=== PATIENT | female | born 1940 | race Caucasian/White ===

== ENCOUNTER 2025-01-19 10:06 | Outpatient (AMB) | payer MEDICARE, SELFPAY ==
--- NOTE | 2025-01-19 10:09 | MHC.PC.OV ---
Vital Signs 01/19/25 10:14 Weight 232 lb 4 oz BP 138/62 Blood Pressure Location Rt brachial Position Sitting Respiration 16 Pulse 71 Pulse Source Pulse Oximeter Temp 97.6 F Temp Source Oral Pulse Oximetry (%) 96 Oxygen Delivery Method Room Air Intake Visit Reasons: establish care/oxygen Sales Assistants And Salespersons Required: No Accompanied by: Self / Same As Patient Allergies empagliflozin (From Jardiance) Allergy (Verified 01/23/25 10:09) sores Tobacco use date assessed: 01/19/25 Dental Screening Dental Screen Date: 01/19/25 Did you have a dental visit in the last 12 months?: No Did you have a dental problem in the last 6 months where you did not have access to dental care?: No Was dental information given to patient?: No HPI HPI Comments History of Present Illness Details History of Present Illness The patient is an 84-year-old female presenting to [facility] and manage her chronic conditions. Type 2 Diabetes Mellitus with complications: The patient has a long history of type 2 diabetes mellitus, complicated by peripheral neuropathy and osteomyelitis. Five years prior, the osteomyelitis resulted in the amputation of her right small toe. Despite adherence to her insulin regimen, the patient's glycemic control has been persistently poor, characterized by HbA1c values reaching 9.7% over recent years. Congestive Heart Failure with preserved ejection fraction: The patient has been managing congestive heart failure with a pacemaker implanted in 2020. Her condition manifests as dyspnea and weight gain, associated with diastolic dysfunction and significant pulmonary hypertension. She has experienced periodic hospitalizations. Sleep Apnea: The patient has a noted reluctance to adhere to her CPAP therapy, with persistent fatigue and non-restorative sleep attributed to the combination of sleep apnea and heart failure. Lymphedema: There is a known history of bilateral lower extremity lymphedema which has impaired the patient's wound healing, particularly following compression therapy. Osteomyelitis: Osteomyelitis of the right small toe necessitated amputation and ongoing wound care is indicated to manage healing. Pulmonary Hypertension: The patient experiences pulmonary hypertension, likely secondary to her existing heart failure. Tuberculosis: History of tuberculosis treatment included partial lung removal, and there are no ongoing symptoms. Surgical History: - Pacemaker implantation in 2020 - Right small toe amputation due to osteomyelitis - Vascular surgery with stenting in the lower leg - Partial right lung removal due to tuberculosis Medications: - Atenolol, 50 mg daily for heart condition - Insulin Lispro, sliding scale for blood glucose management - Insulin NPH, 5 units nightly for diabetes management - Losartan, 100 mg daily for hypertension - Warfarin, 5 mg daily for anticoagulation due to mechanical heart valve - Vitamin D supplementation, 1000 IU daily for deficiency Social History: - Relies on her daughter for transportation and daily living support - History of smoking, with duration not specified Family History: - No specific family history mentioned Past Medical History - Type 2 Diabetes Mellitus - Congestive Heart Failure - Sleep Apnea - Lymphedema - Osteomyelitis - Tuberculosis (history) - Sick Sinus Syndrome - Coronary Artery Disease - Pulmonary Hypertension - Atrial Fibrillation - Hyperlipidemia - Chronic Kidney Disease - Hypertension Health Maintenance [facility] Medical History (Updated 01/25/25 @ 08:33 by Akash Desir MD) Chronic kidney disease Elevated BP without diagnosis of hypertension Hypertension associated with chronic kidney disease due to type 2 diabetes mellitus Hyperlipidemia Atrial fibrillation Pulmonary hypertension Coronary artery disease Sick sinus syndrome History of tuberculosis Pacemaker Osteomyelitis Lymphedema Sleep apnea (HFpEF) heart failure with preserved ejection fraction Diabetes mellitus type 2 with complications Surgical History (Updated 01/25/25 @ 08:23 by Akash eDsir MD) History of lung surgery S/P foot surgery Family History (Updated 01/19/25 @ 10:30 by Adriano Mchugh MA) Father Stomach cancer Mother No problems noted. Social History (Updated 01/19/25 @ 10:12 by Adriano Mchugh MA) Housing: House Alcohol intake: current Alcohol intake frequency: does not drink Patient Tobacco Use Status: Never used Tobacco service: No Current occupational status: retired Cognitive needs: Yes Hearing needs: No Vision needs: Yes (reading glasses) Questionnaire PHQ-9 Over the last 2 weeks, how often have you been bothered by any of the following problems? 1. Little interest or pleasure in doing things: not at all 2. Feeling down, depressed, or hopeless: not at all 3. Trouble falling or staying asleep, or sleeping too much: not at all 4. Feeling tired or having little energy: not at all 5. Poor appetite or overeating: not at all 6. Feeling bad about yourself - or that you are a failure or have let yourself or your family down: not at all 7. Trouble concentrating on things, such as reading the newspaper or watching television: not at all 8. Moving or speaking so slowly that other people could have noticed. Or the opposite - being so fidgety or restless that you have been moving around a lot more than usual: not at all 9. Thoughts that you would be better off or of hurting yourself in some way: not at all Total score: 0 Source: Developed by Drs. Robert Romo, Vahid Jacome and colleagues, with an educational na from [employer]. Thrive Questionnaire I am a: Patient What is your living situation today?: I have a steady place to live Within the past 12 months, did the food you bought not last and you didn't have the money to get more?: Never true Within the past 12 months, did you worry whether your food would run out before you got money to buy more?: Never true Do you have trouble paying for medicines?: No Do you have trouble getting transportation to medical appointments?: No Do you have trouble paying your heating and electricity bill?: No Do you have trouble taking care of your child, family member or friend?: No Are you currently unemployed and looking for a job?: No Are you interested in more education?: No Please select the resources that you would like help with: Care for elder or disabled Currently or been in a relationship where the following occur: No concerns reported THRIVE Score: 0 AUDIT C Alcohol Use Questionnaire (AUDIT-C) 1. How often do you have a drink containing alcohol?: Never Total Score: 0 CHAD-7 AMB Questionnaire CHAD-7 Date CHAD - 7 assessed: 01/19/25 Feeling nervous, anxious, or on edge: 0 = Not at all Not being able to stop or control worryin = Not at all Worrying too much about different things: 0 = Not at all Trouble relaxin = Not at all Being so restless that it is hard to sit still: 0 = Not at all Becoming easily annoyed or irritable: 0 = Not at all Feeling afraid as if something awful might happen: 0 = Not at all Total CHAD-7 score (0-4 normal; 5-9 mild; 10-14 moderate; 15-21 severe): 0 Source: Developed by Drs. Robert Romo, Vahid Jacome and colleagues, with an educational na from [employer]. Review of Systems Narrative Review of Systems - Cardiovascular: Reports history of congestive heart failure, denies current chest pain or palpitations. - Respiratory: Reports past history of tuberculosis and partial lung removal, denies current dyspnea or cough. - Endocrine: Reports history of diabetes mellitus with recent toe amputation, denies hypoglycemic episodes. - Neuropsychiatric: Denies history of atrial fibrillation. 10-point ROS reviewed and negative except as noted in HPI Physical exam (Primary Care) Vital Signs: Last Vital Signs Temp 97.6 F 01/19/25 10:14 Pulse 71 01/19/25 10:14 Resp 16 01/19/25 10:14 BP 138/62 01/19/25 10:14 Pulse Ox 96 01/19/25 10:14 Oxygen Delivery Method Room Air 01/19/25 10:14 Tobacco/Smoking Status: Tobacco use Status Tobacco use date assessed 01/19/25 01/19/25 10:33 Patient Tobacco Use Status Never used Tobacco 01/19/25 10:33 PHQ-9: PHQ-9 Score PHQ-9: Total score 0 01/19/25 10:33 Currently or been in a relationship where the following occur: No concerns reported Narrative Physical Exam General: Elderly female, well-appearing, in no acute distress. Vital signs: Within normal limits. HEENT: Normocephalic, atraumatic. PERRLA, EOMI. Conjunctiva clear, sclera anicteric. Oropharynx clear, mucous membranes moist. TMs intact bilaterally. Neck: Supple, no lymphadenopathy, no thyromegaly, no JVD or carotid bruits. Cardiovascular: RRR, normal S1/S2, no murmurs, rubs, or gallops. Peripheral pulses 2+ and symmetric. No edema. Status post pacemaker implantation. Respiratory: Lungs clear to auscultation bilaterally, no wheezes, rales, or rhonchi. Normal effort. Severe pulmonary hypertension noted. Abdomen: Soft, non-tender, non-distended. Normoactive bowel sounds. No hepatosplenomegaly, no masses. MSK: Full range of motion, no joint swelling or deformity. Normal gait. Status post partial amputation of the right foot with ongoing wound care. Skin: Warm, dry, intact. No rashes, lesions, or pallor. Bruising noted due to warfarin use. Neuro: Alert and oriented x3. Cranial nerves II-XII intact. Strength 5/5 throughout. Sensation intact. Reflexes 2+ symmetric. Normal coordination and gait. Psych: Appropriate mood and affect. Normal judgment and insight. Coding Level of Care Code New Pt Level 4 (24950) Diagnoses Peripheral artery disease I73.9 Ulcer of right foot due to type 2 diabetes mellitus E11.621; L97.519 Diabetic ulcer of left foot E11.621; L97.529 Diabetes mellitus type 2 with complications E11.8 (HFpEF) heart failure with preserved ejection fraction I50.30 Sleep apnea G47.30 Lymphedema I89.0 Osteomyelitis M86.9 Pacemaker Z95.0 History of tuberculosis Z86.11 History of lung surgery Z98.890 Sick sinus syndrome I49.5 Coronary artery disease I25.10 Pulmonary hypertension I27.20 Atrial fibrillation I48.91 Hyperlipidemia E78.5 Hypertension associated with chronic kidney disease due to type 2 diabetes mellitus E11.22; I12.9 Elevated BP without diagnosis of hypertension R03.0 Assessment & Plan Assessment & Plan (1) Peripheral artery disease: Code(s): I73.9 - Peripheral vascular disease, unspecified Category: Medical (2) Ulcer of right foot due to type 2 diabetes mellitus: Code(s): E11.621 - Type 2 diabetes mellitus with foot ulcer; L97.519 - Non-pressure chronic ulcer of other part of right foot with unspecified severity Category: Medical (3) Diabetic ulcer of left foot: Code(s): E11.621 - Type 2 diabetes mellitus with foot ulcer; L97.529 - Non-pressure chronic ulcer of other part of left foot with unspecified severity Category: Medical (4) Diabetes mellitus type 2 with complications: Code(s): E11.8 - Type 2 diabetes mellitus with unspecified complications Category: Medical (5) (HFpEF) heart failure with preserved ejection fraction: Code(s): I50.30 - Unspecified diastolic (congestive) heart failure Category: Medical (6) Sleep apnea: Code(s): G47.30 - Sleep apnea, unspecified Category: Medical (7) Lymphedema: Code(s): I89.0 - Lymphedema, not elsewhere classified Category: Medical (8) Osteomyelitis: Code(s): M86.9 - Osteomyelitis, unspecified Category: Medical (9) Pacemaker: Code(s): Z95.0 - Presence of cardiac pacemaker Category: Medical (10) History of tuberculosis: Code(s): Z86.11 - Personal history of tuberculosis Category: Medical (11) History of lung surgery: Code(s): Z98.890 - Other specified postprocedural states Category: Surgical (12) Sick sinus syndrome: Code(s): I49.5 - Sick sinus syndrome Category: Medical (13) Coronary artery disease: Code(s): I25.10 - Atherosclerotic heart disease of [place] coronary artery without angina pectoris Category: Medical (14) Pulmonary hypertension: Code(s): I27.20 - Pulmonary hypertension, unspecified Category: Medical (15) Atrial fibrillation: Code(s): I48.91 - Unspecified atrial fibrillation Category: Medical (16) Hyperlipidemia: Code(s): E78.5 - Hyperlipidemia, unspecified Category: Medical (17) Hypertension associated with chronic kidney disease due to type 2 diabetes mellitus: Code(s): E11.22 - Type 2 diabetes mellitus with diabetic chronic kidney disease; I12.9 - Hypertensive chronic kidney disease with stage 1 through stage 4 chronic kidney disease, or unspecified chronic kidney disease Category: Medical (18) Elevated BP without diagnosis of hypertension: Code(s): R03.0 - Elevated blood-pressure reading, without diagnosis of hypertension Category: Medical Plan Consent Patient was informed and verbally consented to the use of an ambient scribe for clinic note documentation during this visit. Plan 1. Diabetes Mellitus - Continue current insulin regimen 2. Congestive Heart Failure - Continue with atenolol and warfarin -chads Vasc score of 7 we will switch over to DOAC , apixaban 2.5 b.i.d. - Referral to cardiology for evaluation 3. Sleep Apnea - Referral to sleep medicine for a sleep study and CPAP evaluation 4. Lymphedema - Continued use of compression therapy with skin monitoring 5. Osteomyelitis - Continue wound care, follow-up with podiatry 6. Tuberculosis (History Of) - No current treatment required, monitor respiratory status. 7. Pulmonary Hypertension - Monitor alongside heart failure management Discussion Notes During today's visit, I extensively discussed with the patient the management of her significant chronic conditions, focusing on diabetes control and heart failure care. We reviewed her adherence to her insulin regimen and acknowledged the complications such as osteomyelitis of the toe that led to amputation. I highlighted the importance of specialist referrals to optimize her heart failure management and explore potential medication adjustments, specifically the potential transition from warfarin to a DOAC. The patient was counseled on the potential benefits of revisiting her sleep apnea diagnosis with a new sleep study to improve compliance with CPAP therapy. Her consent was actively sought and obtained for these planned interventions, emphasizing their critical role in managing her overall chronic health conditions. Patient Instructions - Continue taking all prescribed medications as directed. - Attend upcoming appointments with specialists in cardiology, vascular surgery nephrology wound care and sleep medicine. - Monitor blood glucose levels regularly using Dexcom. - Follow up with podiatry for wound care management. Medical Decision Making The patient's medical complexity was acknowledged through her multiple chronic conditions. Her glycemic control issues, coupled with the sequelae of diabetes including amputation due to osteomyelitis, necessitated referrals for more aggressive management. Given her preserved ejection fraction heart failure with significant pulmonary hypertension, maintaining her heart failure regimen and exploring alternatives for anticoagulation was crucial. I emphasized a team-based approach linking cardiology, and sleep medicine specialists, facilitating a comprehensive management strategy tailored to improve her clinical outcomes. Her cardiovascular history justified ongoing anticoagulation therapy, with potential benefits from transitioning to a DOAC to simplify her regimen and reduce adverse effects associated with warfarin. Additionally, the sleep medicine referral was essential to reassess her sleep apnea management, as this greatly impacts her cardiac condition. Ensuring patient understanding and buy-in was imperative, as it forms the foundation of effective follow-through and management adjustment. Total time spent caring for the patient today was 45 minutes. This includes time spent before the visit reviewing the chart, time spent documenting, and time spent reviewing laboratory results, diagnostic imaging, medications, performing a medically necessary evaluation, counseling on diagnoses, care coordination.. Medications: New apixaban 2.5 mg PO BID 180 tabs 0RF
[2025-01-19 10:14] VITALS: BP 138/62; PULSE 71; RESP 16; TEMP 36.4; O2SAT 96
== END 2025-01-19 11:14 | disposition home or self-care (01) ==
LOC: HO.HMCFMS 10:07
PROVIDERS: PCP Student in an Organized Health Care Education/Training Program; Visit Provider Student in an Organized Health Care Education/Training Program
DX: I73.9 Peripheral vascular disease, unspecified (principal); E11.621 Type 2 diabetes mellitus with foot ulcer; L97.519 Non-pressure chronic ulcer of other part of right foot with unspecified severity; L97.529 Non-pressure chronic ulcer of other part of left foot with unspecified severity; E11.8 Type 2 diabetes mellitus with unspecified complications; I50.30 Unspecified diastolic (congestive) heart failure; G47.30 Sleep apnea, unspecified; I89.0 Lymphedema, not elsewhere classified; M86.9 Osteomyelitis, unspecified; Z95.0 Presence of cardiac pacemaker; Z86.11 Personal history of tuberculosis; Z98.890 Other specified postprocedural states; I49.5 Sick sinus syndrome; I25.10 Atherosclerotic heart disease of native coronary artery without angina pectoris; I27.20 Pulmonary hypertension, unspecified; I48.91 Unspecified atrial fibrillation; E78.5 Hyperlipidemia, unspecified; E11.22 Type 2 diabetes mellitus with diabetic chronic kidney disease; I12.9 Hypertensive chronic kidney disease with stage 1 through stage 4 chronic kidney disease, or unspecified chronic kidney disease; R03.0 Elevated blood-pressure reading, without diagnosis of hypertension

== ENCOUNTER → 2025-01-19 10:06 | Outpatient (BNVA) | payer MEDICARE, SELFPAY | PROVIDERS: Visit Provider Student in an Organized Health Care Education/Training Program | DX: Z76.89 Persons encountering health services in other specified circumstances (principal); I73.9 Peripheral vascular disease, unspecified; E11.621 Type 2 diabetes mellitus with foot ulcer; L97.519 Non-pressure chronic ulcer of other part of right foot with unspecified severity; L97.529 Non-pressure chronic ulcer of other part of left foot with unspecified severity; E11.22 Type 2 diabetes mellitus with diabetic chronic kidney disease; I13.0 Hypertensive heart and chronic kidney disease with heart failure and stage 1 through stage 4 chronic kidney disease, or unspecified chronic kidney disease; I50.30 Unspecified diastolic (congestive) heart failure; N18.9 Chronic kidney disease, unspecified; E78.5 Hyperlipidemia, unspecified; I89.0 Lymphedema, not elsewhere classified; M86.9 Osteomyelitis, unspecified; I27.20 Pulmonary hypertension, unspecified; I25.10 Atherosclerotic heart disease of native coronary artery without angina pectoris; I48.91 Unspecified atrial fibrillation; Z95.2 Presence of prosthetic heart valve; Z79.01 Long term (current) use of anticoagulants; Z79.4 Long term (current) use of insulin; Z79.899 Other long term (current) drug therapy; Z86.11 Personal history of tuberculosis; Z95.0 Presence of cardiac pacemaker; Z89.421 Acquired absence of other right toe(s); Z13.30 Encounter for screening examination for mental health and behavioral disorders, unspecified; Z13.39 Encounter for screening examination for other mental health and behavioral disorders | CPT/HCPCS: 96127; 99202 ==

== ENCOUNTER 2025-01-23 09:57 | Outpatient (AMB) | payer MEDICARE, SELFPAY ==
--- OUTSIDE RECORDS SUMMARY | 2020-06-27 10:00 | XMS_ITS | Continuity of Care Document ---
Author Organization [facility] Address [address] [place] [address] Phone Care Team Providers Care Energy Infrastructure Engineer Name Role Phone Olga Srivasatva Unavailable Unavailable Allergies, Adverse Reactions, Alerts Substance Reaction Status Criticality METHYLPREDNISOLONE ACETATE HivesHivesShortness Of [place] th Active No Information Medications Medication Instructions Dosage Effective Dates (start - stop) Status Comments tramadol 50 mg tablet take 0.5-1 tablet by oral route every 6 hours as needed. acute pain exemption - Active Serafina 5 mg-325 mg tablet take 1 tablet [...] Copied on Encounter Office/outpa tient visit,est, mod [facility], [address], [place], [place], [address], [place] tel:[phone] [facility] 101 lumbar spine pain (chief complaint) Neurogenic claudicationS acroiliac joint dysfunctionLu mbar disc disease with radiculopathy Apr-0 - 1 Horace Espinoza. [address], [place], [place], [address] , [place]. [phone] Referring Provider: Olga SANCHEZ, [address], [place], [address] . tel:[phone] [facility], [address], [place], [place], [address], [place] tel:[phone] [facility] 204 No Information May- 1 Eduard Wen. [address], [place], [place], [address] , [place]. tel: [phone] [facility], [address], [place], [place], [address], [place] tel:[phone] [place] [facility] [address] Neurogenic claudication May- 1 Prabhjot Hastings. [address], [place], [place], [address] , [place]. [phone] Referring Provider: Venkata Rick MD, [address], [place], [address] . tel:[phone] Office/outpa tient visit,est, mod [facility], [address], [place], [place], [address], [place] tel:[phone] [place] [address] lumbar spine pain (chief complaint) Neurogenic claudicationS acroiliac joint dysfunction 1 Prabhjot Hastings. [address], [place], [place], [address] , [place]. tel:[phone] Referring Provider: Venkata Rick MD, [address], [place], [address] . tel:[phone] [facility], [address], [place], [place], [address], [place] tel:[phone] [facility] [address] Lumbar disc disease with radiculopathy 0- 0 Prabhjot Hastings. [address], [place], [place], [address] , [place]. tel:[phone] Referring Provider: Venkata Rick MD, [address], [place], [address] . tel:[phone] [facility], [address], [place], [place], [address], [place] tel:[phone] [place] [address] Lumbar disc disease with radiculopathy 0 Kenny Avalos. [address], [place], [place], [address] , [place]. tel:[phone] Referring Provider: Venkata Rick MD, [address], [place], [address] . tel:[phone] Office/outpa tient visit,est, mod [facility], [address], [place], [place], [address], [place] tel:[phone] [facility] [address] lumbar spine pain (chief complaint) Body mass index (BMI) 33.0-33.9, adultNeurogen ic claudicationS acroiliac joint dysfunction 0 0 Prabhjot Hastings. [address], [place], [place], [address] , [place]. tel:[phone] Referring Provider: Venkata Rick MD, [address], [place], [address] . tel:[phone] [facility], [address], [place], [place], [address], [place] tel:[phone] [place] [address] Spondylosis of lumbar region without myelopathy or radiculopathy 0 Prabhjot Hastings. [address], [place], [place], [address] , [place]. tel:[phone] Referring Provider: Venkata Rick MD, [address], [place], [address] . tel:[phone] [facility], [address], [place], [place], [address], [place] tel:[phone] [place] [facility] [address] Spondylosis of lumbar region without myelopathy or radiculopathy 0 Prabhjot Hastings. [address], [place], [place], [address] , [place]. tel:[phone] Referring Provider: Venkata Rick MD, [address], [place], [address] . tel:[phone] [facility], [address], [place], [place], [address], [place] tel:[phone] [facility] [address] Spondylosis of lumbar region without myelopathy or radiculopathy 0 Prabhjot Hastings. [address], [place], [place], [address] , [place]. tel: [phone] Referring Provider: Venkata Rick MD, [address], [place], [address] . tel:[phone] [facility], [address], [place], [place], [address], [place] tel:[phone] [facility] [address] Spondylosis of lumbar region without myelopathy or radiculopathy 9 Prabhjot Hastings. [address], [place], [address] , [place]. tel: [phone] Referring Provider: Venkata Rick MD, [address], [place], [address] . tel:[phone] Office/outpa tient visit,est, mod [facility], [address], [place], [place], [address], [place] tel:[phone] [facility] [address] lumbar spine pain (chief complaint) Body mass index (BMI) 33.0-33.9, adultSpondylo sis of lumbar region without myelopathy or radiculopathy Neurogenic claudication 9 Prabhjot Hastings. [address], [place], [place], [address] , [place]. tel:[phone] Referring Provider: Venkata Rick MD, [address], [place], [address] . tel:[phone] [facility], [address], [place], [place], [address], [place] tel:[phone] [place] [address] Spondylosis of lumbar region without myelopathy or radiculopathy 9 Prabhjot Hastings. [address], [place], [place], [address] , [place]. [phone] Referring Provider: Venkata Rick MD, [address], [place], [address] . tel:[phone] [facility], [address], [place], [place], [address], [place] tel:[phone] [place] [address] Spondylosis of lumbar region without myelopathy or radiculopathy 9 Prabhjot Hastings. [address], [place], [place], [address] , [place]. tel:[phone] Referring Provider: Venkata Rick MD, [address], [place], [address] . tel:[phone] Office/outpa tient visit,est, mod [facility], [address], [place], [place], [address], [place] tel:[phone] [facility] [address] lumbar spine pain (chief complaint) Body mass index (BMI) 33.0-33.9, adultSpondylo sis of lumbar region without myelopathy or radiculopathy Neurogenic claudication 9 Prabhjot Hastings. [address], [place], [place], [address] , [place]. tel:[phone] Referring Provider: Venkata Rick MD, [address], [place], [address] . tel:[phone] [facility], [address], [place], [place], [address], [place] tel:[phone] [place] [address] Spondylosis of lumbar region without myelopathy or radiculopathy 9 Prabhjot Hastings. [address], [place], [place], [address] , [place]. tel:[phone] Referring Provider: Venkata Rick MD, [address], [place], [address] . tel:[phone] Office/outpa tient visit,[facility], [address], [place], [place], [address], [place] tel:[phone] [facility] 204 lumbar spine pain (chief complaint) Body mass index (BMI) 33.0-33.9, adultSpondylo sis of lumbar region without myelopathy or radiculopathy Neurogenic claudication 9 Prabhjot Hastings. [address], [place], [place], [address] , [place]. tel:[phone] Referring Provider: Chuy Ogden MD H, [address], [place], [address] . tel:[phone] Office/outpa tient visit,[facility], [address], [place], [place], [address], [place] tel:[phone] [facility] 201 lumbar spine (chief complaint) Body mass index (BMI) 33.0-33.9, adultLumbar painLumbar disc disease with radiculopathy 9 Alin Vera . [address], [place], [place], [address] , [place]. tel:[phone] Referring Provider: Chuy Ogden MD H, [address], [place], [address] . tel:[phone] Office/outpa tient visit,[facility], [address], [place], [place], [address], [place] tel:[phone] [facility] 201 right knee pain (chief complaint) Closed nondisplaced fracture of right patella, unspecified fracture morphology, initial encounter 8 Alin Vera . [address], [place], [place], [address] , [place]. tel: [phone] Referring Provider: Chuy Ogden MD H, [address], [place], [address] . tel:[phone] Office/outpa tient visit,est, [facility], [address], [place], [place], [address], [place] tel:[phone] [facility] knee (chief complaint) Contusion of right knee, subsequent encounter 6 Alin Vera . [address], [place], [place], [address] , [place]. tel: [phone] Referring Provider: Chuy Granados, [address], [place], [address] . tel:[phone] [facility], [address], [place], [place], [address], [place] tel:[phone] [facility] hip (chief complaint) hip (chief complaint) Contusion of right knee, subsequent encounter 6 Lo Causey. [address], [place], [place], [address] , [place]. tel: [phone] Referring Provider: Chuy Ogden MD H, [address], [place], [address] . tel:[phone] Office/outpa tient visit,est, [facility], [address], [place], [place], [address], [place] tel:[phone] [facility] right knee pain (chief complaint) right ankle pain (chief complaint) Contusion of right knee, subsequent encounterSpra in of right ankle, unspecified ligament, subsequent encounter 5 Alin Vera . [address], [place], [place], [address] , [place]. tel: [phone] Referring Provider: Chuy Granados, [address], [place], [address] . tel:[phone] Office/outpa tient visit,[facility], [facility], [address], [place], [place], [address], [place] tel:[phone] [facility] left hand fracture (chief complaint) Nondisplaced fracture of proximal phalanx of left little finger with routine healing, subsequent encounter 5 Nino JIMENEZ Check. [address], [place], [place], [address] , [place]. tel: [phone] Referring Provider: Jerry Clark, [address], [place], [address] . tel:[phone] Office/outpa tient visit,[facility], [facility], [address], [place], [place], [address], [place] tel:[phone] [facility] right foot pain (chief complaint) Sprain of right ankle, unspecified ligament, subsequent encounter 5 Alin Vera . [address], [place], [place], [address] , [place]. tel: [phone] Referring Provider: Chuy Ogden MD H, [address], [place], [address] . tel:[phone] Office/outpa tient visit,[facility], [facility], [address], [place], [place], [address], [place] tel:[phone] [facility] left hand small finger fracture (chief complaint) Finger pain, leftClosed displaced fracture of proximal phalanx of right little finger, initial encounter 5 Nino JIMENEZ Check. [address], [place], [place], [address] , [place]. tel: [phone] Referring Provider: Chuy Granados, [address], [place], [address] . tel:[phone] Office/outpa tient visit,est, [facility], [address], [place], [place], [address], [place] tel:[phone] [facility] right knee pain (chief complaint) right ankle pain (chief complaint) knee (chief complaint) Right knee painRight ankle painContusion of right knee, subsequent encounter 5 Alin Vera . [address], [place], [place], [address] , [place]. [phone] Referring Provider: Chuy Granados, [address], [place], [address] . tel:[phone] [facility], [address], [place], [place], [address], [place] tel:[phone] [facility] 400 Swelling of right lower extremity 5 Alin Vera . [address], [place], [place], [address] , [place]. [phone] Referring Provider: Minerva Clark, [address], [place], [address] . tel:[phone] Office/outpa tient visit,[facility], [facility], [address], [place], [place], [address], [place] tel:[phone] [facility] 400 right knee pain (chief complaint) left hand swelling (chief complaint) Right knee painLeft hand painPrimary osteoarthriti s of right kneeClosed nondisplaced fracture of right patella, unspecified fracture morphology, initial encounterFrac ture of proximal phalanx of digit of left hand 5 Lashonda Palma. [address], [place], [place], [address] , [place]. [phone] Referring Provider: Minerva Clark, [address], [place], [address] . tel:[phone] [facility], [address], [place], [place], [address], [place] tel:[phone] [facility] 400 right knee pain (chief complaint) Primary osteoarthriti s of right knee Dec- 5 Alin Vera . [address], [place], [place], [address] , [place]. tel:[phone] Referring Provider: Chuy Ogden MD H, [address], [place], [address] . tel:[phone] [facility], [address], [place], [place], [address], [place] tel:[phone] [place] [address] right knee pain (chief complaint) Primary osteoarthriti s of right knee 5 Alin Vera . [address], [place], [place], [address] , [place]. tel:[phone] Referring Provider: Chuy Ogden MD H, [address], [place], [address] . tel:[phone] [facility], [address], [place], [place], [address], [place] tel:[phone] [facility] 400 right knee pain (chief complaint) Primary osteoarthriti s of right knee 5 Alin Vera . [address], [place], [place], [address] , [place]. tel:[phone] Referring Provider: Chuy Ogden MD H, [address], [place], [address] . tel:[phone] Office/outpa tient visit,est, mod [facility], [address], [place], [place], [address], [place] tel:[phone] [facility] right knee pain (chief complaint) Degenerative joint disease of knee 5 Alin Vera . [address], [place], [place], [address] , [place]. tel: [phone] Referring Provider: Chuy Ogden MD H, [address], [place], [address] . tel:[phone] Office/outpa tient visit,new, [facility], [address], [place], [place], [address], [place] tel:[phone] [facility] right knee pain (chief complaint) No Information 5 Alin Vera . [address], [place], [place], [address] , [place]. tel: [phone] Referring Provider: Chuy Ogden MD H, [address], [place], [address] . tel:[phone] [facility], [address], [place], [place], [address], [place] tel:[phone] [place] [address] No Information 5 Alin Vera . [address], [place], [place], [address] , . tel: [phone] Family History Family Member Type Diagnosis Age At Onset Father Problem (finding) Mother Problem (finding) Stomach Sister Problem (finding) malignant neop lasm of breast in first degree relative Mother Problem (finding) Payers Payer name Insurance type Covered constitution party ID Authoriza tion(s) MEDICARE MB [id number] AARP SUPPLEMENT CI [id number] Social History Type Description Quantity Date Captured [...] pertinent negatives. lumbar spine pain Ana M nIteriano is a 79 year old female. She [...] pain after activity. knee hip hip right knee pain Ms Interiano is a [...] symptoms are relieved by rest and elevation. right ankle pain Ms Interiano is a [...] activity. She denies having any associated symptoms. left hand fracture Ms Interiano is a [...] mobility, difficulty initiating sleep and nocturnal awakening. right ankle pain Ms Interiano is a [...] after activity and swelling. right knee pain Ana M Mazzocchi i s a 74 year old female. [...] after activity, pain while sitting and tenderness. knee Ms Interiano is a 74 year old female who complains of. left hand swelling Ms Interiano is a [...] include tenderness and pain. right knee pain Ms Interiano is [...] difficulty going to sleep and nighttime awakening. right knee pain Ana M Interiano i [...] for the treatment of pain such as tgnd-llg-fhnevsb medications, acupuncture, cognitive and physical therapy. The risk of taking prescribed opioid medications were discussed including but not limited to addiction, injury, overdose, and . The patient has been provided the approved [facility] educational pamphlet non-opioid alternatives if [...] for the treatment of pain such as eess-yme-hyfbosh medications, acupuncture, cognitive and physical therapy. The risk of taking prescribed opioid medications were discussed including but not limited to addiction, injury, overdose, and . The patient has been provided the approved [facility] educational pamphlet non-opioid alternatives if [...] for the treatment of pain such as zkuy-cdv-kxnnges medications, acupuncture, cognitive and physical therapy. The risk of taking prescribed opioid medications were discussed including but not limited to addiction, injury, overdose, and . The patient has been provided the approved [facility] educational pamphlet non-opioid alternatives if [...] for the treatment of pain such as tija-nej-rjcswso medications, acupuncture, cognitive and physical therapy. The risk of taking prescribed opioid medications were discussed including but not limited to addiction, injury, overdose, and . The patient has been provided the approved [facility] educational pamphlet non-opioid alternatives if [...] Related to Lumbar disc disease with radiculopathy Discussed risks and benefits of treatment plan Related to Lumbar pain Dietary needs education Related to Body mass index (BMI) 33.0-33.9, adult we discussed her exa m findings and [...] right ankle, unspecified ligament, subsequent encounter Recommend multimedia designer use and the splint was adjusted to [...] the office by one of the physicians care management assistant and placed in the immobilizer. 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 Has tried conservative measures rest, OTC NSAIDs [...]
--- NOTE | 2025-01-23 10:06 | MHC.OFFVIS ---
Vital Signs 01/23/25 10:08 Height 5 ft 6 in Weight 230 lb BMI 37.1 Intake Visit Reasons: RT baby toe open wound/recent amputation Intake Note: sourav is an 84 year old women who presents today as a new patient for an evaluation of her right pinky toe open wound/amputation. patient reports she was seen by a previous datawarehouse developer in [place] where he performed the amputation of her toe and left 3 stitches in. the amputation occured about three weeks ago. Allergies empagliflozin (From Jardiance) Allergy (Verified 01/23/25 10:09) sores HPI HPI RT baby toe open wound/recent amputation: Details: 84-year-old female with past medical history of diabetes mellitus type 2, peripheral artery disease status post angioplasty right lower extremity, on warfarin, presents for transfer of podiatric care as well as right diabetic foot ulcer management. The patient states that she moved from [place] within the past week, after a right 5th toe amputation approximately 3 weeks ago. She stayed in the hospital for approximately 1 week and then was in a subacute rehab facility for almost 2 weeks. She was given an oral antibiotic after discharge, which she has now completed. She states she has had the right foot ulcer chronically for several years which eventually had become acutely infected and required amputation. Today, the patient denies any pain to her lower extremities. She does endorse numbness her feet. She denies nausea vomiting fever chills shortness of breath or chest pain. She is unsure of her last A1c, however reports it to be typically under 10%. [facility] Surgical History (Updated 01/19/25 @ 11:12 by Akash Desir MD) S/P foot surgery Family History (Updated 01/19/25 @ 10:30 by Adriano Mchugh MA) Father Stomach cancer Mother No problems noted. Social History (Updated 01/19/25 @ 10:12 by Adriano Mchugh MA) Housing: House Alcohol intake: current Alcohol intake frequency: does not drink Patient Tobacco Use Status: Never used Tobacco service: No Current occupational status: retired Cognitive needs: Yes Hearing needs: No Vision needs: Yes (reading glasses) Review of Systems Const All systems reviewed & are unremarkable except as noted in HPI and below Physical Exam Vital Signs: BMI result Body Mass Index 37.1 Extrem Other: *Bilateral Lower Extremity Focused Diabetic Foot Exam Vascular: DP/PT 1/4 right foot, CFT<3s to digits, TG warm to cool, no pedal edema, pedal hair absent Derm: Status post right foot partial 5th ray amputation with 3 cm x 1 cm granular wound along the central aspect of the 5th metatarsal incision. No drainage erythema or clinical signs of infection. No deep probing or exposed tendon/bone. Nails: Elongated, thickened, dystrophic, discolored toenails x 10 with multiple calluses Discolored bilateral lower extremities with hemosiderin deposit. Dry scaling bilateral feet. Multiple calluses over and in between digits. Neuro: Protective sensation grossly diminished to bilateral lower extremities Msk: Status post right foot partial 5th ray amputation. No pain on palpation. Footwear Assessment: Shoes inspected; appropriate fit, no excessive wear, or foreign objects noted. Assessment & Plan Assessment & Plan (1) Ulcer of right foot due to type 2 diabetes mellitus: Code(s): E11.621 - Type 2 diabetes mellitus with foot ulcer; L97.519 - Non-pressure chronic ulcer of other part of right foot with unspecified severity Category: Medical Plan: As per patient, she had negative margins for osteomyelitis upon amputation. She also completed her postoperative antibiotic course. At this time there are no clinical signs of infection, there will be no further workup for her 5th digit osteomyelitis which underwent surgical resection. Right foot sutures were removed. The wound was dressed using antibiotic cream, 4 x 4 gauze, Britni, and a noncompressive Jd bandage. Visiting nurse instructions were given to perform daily dressing changes using mupirocin ointment and 4 x 4 gauze and Britni secured with tape. Rx mupirocin ointment Follow up in 2 weeks. We will plan to debride nails after her wound is healed. Patient was instructed to present earlier if she has any new worsening signs of infection to her feet. (2) Peripheral artery disease: Code(s): I73.9 - Peripheral vascular disease, unspecified Category: Medical Plan: Patient states she had a angioplasty to right lower extremity. She is not sure if she had any stents placed or the extent of her procedure. She was recommended by her previous vascular surgeon to find a new vascular surgeon here in [place] once she moves back. She is referred to Dr. Lux vascular surgery. Orders: Referrals Vascular Surgery Referral I73.9 - Peripheral vascular disease, unspecified Medications: New [Wound care instructions] Right foot wound care instructions: 1. Remove dressings. Cleansed with wound cleanser or saline. 2. Applied mupirocin ointment 3. Apply 4 x 4 gauze and Britni, secure with tape. No compression. 1 ea 0RF diabetic foot ulcer E11.621 - Type 2 diabetes mellitus with foot ulcer, L97.519 - Non-pressure chronic ulcer of other part of right foot with unspecified severity mupirocin 2% ([place]) Apply to right foot wound daily. 1 appl topical DAILY 15 grams 3RF diabetic foot ulcer E11.621 - Type 2 diabetes mellitus with foot ulcer, L97.519 - Non-pressure chronic ulcer of other part of right foot with unspecified severity Coding Level of Care Code New Pt Level 4 (80122) Diagnoses Ulcer of right foot due to type 2 diabetes mellitus E11.621; L97.519 Peripheral artery disease I73.9 Time Spent (min) 45
[2025-01-23 10:08] VITALS: BMI 37.1
== END 2025-01-23 10:43 | disposition home or self-care (01) ==
LOC: HO.HPODS 09:59
PROVIDERS: PCP Student in an Organized Health Care Education/Training Program; Visit Provider Student in an Organized Health Care Education/Training Program
DX: E11.621 Type 2 diabetes mellitus with foot ulcer (principal); L97.519 Non-pressure chronic ulcer of other part of right foot with unspecified severity; I73.9 Peripheral vascular disease, unspecified
CPT/HCPCS: 99204

== ENCOUNTER → 2025-01-23 09:57 | Outpatient (BNVA) | payer MEDICARE, SELFPAY | PROVIDERS: PCP Student in an Organized Health Care Education/Training Program; Visit Provider Student in an Organized Health Care Education/Training Program | DX: E11.621 Type 2 diabetes mellitus with foot ulcer (principal); L97.519 Non-pressure chronic ulcer of other part of right foot with unspecified severity; E11.51 Type 2 diabetes mellitus with diabetic peripheral angiopathy without gangrene; Z89.421 Acquired absence of other right toe(s) | CPT/HCPCS: 99202 ==

== ENCOUNTER 2025-02-02 11:04 | Outpatient (REF) | payer MEDICARE, SELFPAY ==
[2025-02-02 17:53] LABS: MANUAL DIFF FLAG NO
[2025-02-02 18:22] LABS: Appearance Urine Clear; Glucose Urine UA Negative (Negative); PH 5.5 (5.0-9.0); Specific Gravity - Urine 1.010 (1.005-1.025); UMIC TRIGGER UACC YES
[2025-02-02 18:28] LABS: Alanine Aminotransferase 35 U/L (0-31); Albumin Level 4.1 g/dL (3.5-5.0); Alkaline Phosphatase 143 U/L (39-117); Anion Gap 18 (12-20); Aspartate Amino Transferase 41 U/L (5-31); Blood Urea Nitrogen 46 mg/dL (9-16); Calcium 9.8 mg/dL (8.4-10.2); Carbon Dioxide 24 mmol/L (22-29); Chloride 104 mmol/L (96-108); Cholesterol 142 mg/dL (<200); Estimated Glomerular Filt Rate 32; HDL Cholesterol 52 mg/dL (>40); Magnesium 2.2 mg/dL (1.6-2.6); Potassium 4.5 mmol/L (3.3-5.1); Sodium 141 mmol/L (135-145); Total Protein 7.5 g/dL (6.5-8.0); Triglycerides 102 mg/dL (<150)
[2025-02-02 18:29] LABS: UACC Culture Trigger YES
[2025-02-02 18:33] LABS: Hemoglobin A1C 161.4481 umol/L
[2025-02-02 18:50] LABS: Folate 12.3 ng/mL (> or = 4.0); Vitamin B12 1178 pg/mL (200-900)
[2025-02-02 19:02] LABS: INTERNATIONAL NORM RATIO 1.0 (0.9-1.1); Prothrombin Time 12.4 SEC (11.2-13.5)
[2025-02-02 19:05] LABS: Hematocrit 44.2 % (37.0-47.0); Hemoglobin 14.1 g/dl (12.0-16.0); Imm Gran Abs Auto 0.06 X10*3/uL (0.00-0.03); Imm Gran Pct Auto 0.6 % (0.0-0.4); Lymphocytes Absolute Auto 1.3 X10*3/uL (1.2-4.9); Mean Corpuscular HGB Conc 31.9 g/dl (31.0-35.0); Mean Corpuscular Hemoglobin 30.3 pg (27.0-33.0); Mean Corpuscular Volume 95.1 fL (80.0-98.0); NRBC Abs Auto 0.000 X10*3/uL (0.0-0.012); NRBC Pct Auto 0.0 /100WBC (0.0-0.2); Platelet Count 147 X10*3/uL (160-400); Red Blood Count 4.65 X10*6/uL (4.20-5.50); White Blood Count 10.0 X10*3/uL (4.8-10.8)
[2025-02-04 04:06] LABS: HBS Num1 0.00 mIU/mL (0-7.99); HBsAGNum1 0.51 S/CO (0.00-0.99); Hepatitis B Surface Antigen Negative (Negative); ~HepC Num1 0.21 S/CO (0.00-0.79); ~Hepatitis B Surface Antibody NONREACTIVE (Nonreactive); ~Hepatitis C Antibody Nonreactive (Nonreactive)
[2025-02-07 17:33] LABS: VITAMIN D (1,25 OH) D3 16 pg/mL; Vit D (1,25-Dihydroxy) Total 35 pg/mL (18-72); Vitamin D (1,25 OH) D2 19 pg/mL
== END 2025-02-02 11:05 | disposition home or self-care (01) ==
LOC: HO.HKASLDS 11:04
PROVIDERS: PCP Student in an Organized Health Care Education/Training Program; Visit Provider Student in an Organized Health Care Education/Training Program
DX: E11.22 Type 2 diabetes mellitus with diabetic chronic kidney disease (principal); I12.9 Hypertensive chronic kidney disease with stage 1 through stage 4 chronic kidney disease, or unspecified chronic kidney disease; N18.9 Chronic kidney disease, unspecified; R03.0 Elevated blood-pressure reading, without diagnosis of hypertension; I48.91 Unspecified atrial fibrillation; E11.51 Type 2 diabetes mellitus with diabetic peripheral angiopathy without gangrene; E78.5 Hyperlipidemia, unspecified; R53.81 Other malaise; Z89.421 Acquired absence of other right toe(s); Z95.0 Presence of cardiac pacemaker; Z91.81 History of falling; Z79.01 Long term (current) use of anticoagulants
CPT/HCPCS: 36415; 80053; 80061; 81001; 82607; 82652; 82746; 83036; 83735; 84443; 85025; 85610; 85730; 86706; 86803; 87086; 87340; 96127; 99212

== ENCOUNTER 2025-02-02 11:04 | Outpatient (AMB) | payer MEDICARE, SELFPAY ==
--- OUTSIDE RECORDS SUMMARY | 2020-06-27 09:00 | XMS_ITS | Continuity of Care Document ---
Author Organization [facility] Address [address] [place] [address] Phone Care Team Providers Care Literacy Education Professor Name Role Phone Olga Srivastava Unavailable Unavailable Allergies, Adverse Reactions, Alerts Substance Reaction Status Criticality METHYLPREDNISOLONE ACETATE HivesHivesShortness Of Manteno th Active No Information Medications Medication Instructions Dosage Effective Dates (start - stop) Status Comments tramadol 50 mg tablet take 0.5-1 tablet by oral route every 6 hours as needed. acute pain exemption - Active [place] 5 mg-325 mg tablet take 1 tablet [...] Copied on Encounter Office/outpa tient visit,est, mod [facility], [address], [place], [place], [address], [place] tel:[phone] [facility] 101 lumbar spine pain (chief complaint) Neurogenic claudicationS acroiliac joint dysfunctionLu mbar disc disease with radiculopathy Apr-0 - 1 Horace Espinoza. [address], [place], [place], [address] , [place]. [phone] Referring Provider: Olga SANCHEZ, [address], [place], [address] . tel:[phone] [facility], [address], [place], [place], [address], [place] tel:[phone] [facility] 204 No Information May- 1 Eduard Wen. [address], [place], [place], [address] , [place]. tel: [phone] [facility], [address], [place], [place], [address], [place] tel:[phone] [facility] [address] Neurogenic claudication May- 1 Prabhjot Hastings. [address], [place], [place], [address] , [place]. [phone] Referring Provider: Venkata Rick MD, [address], [place], [address] . tel:[phone] Office/outpa tient visit,est, mod [facility], [address], [place], [place], [address], [place] tel:[phone] lumbar spine pain (chief complaint) Neurogenic claudicationS acroiliac joint dysfunction 1 Prabhjot Hastings. [address], [place], [place], [address] , [place]. tel:[phone] Referring Provider: Venkata Rick MD, [address], [place], [address] . tel:[phone] [facility], [address], [place], [place], [address], [place] tel:[phone] [facility] [address] Lumbar disc disease with radiculopathy 0- 0 Prabhjot Hastings. [address], [place], [place], [address] , [place]. tel:[phone] Referring Provider: Venkata Rick MD, [address], [place], [address] . tel:[phone] [facility], [address], [place], [place], [address], [place] tel:[phone] Lumbar disc disease with radiculopathy 0 Kenny Avalos. [address], [place], [place], [address] , [place]. tel:[phone] Referring Provider: Venkata Rick MD, [address], [place], [address] . tel:[phone] Office/outpa tient visit,est, mod [facility], [address], [place], [place], [address], [place] tel:[phone] [facility] [address] lumbar spine pain (chief complaint) Body mass index (BMI) 33.0-33.9, adultNeurogen ic claudicationS acroiliac joint dysfunction 0 0 Prabhjot Hsatings. [address], [place], [place], [address] , [place]. tel:[phone] Referring Provider: Venkata Rick MD, [address], [place], [address] . tel:[phone] [facility], [address], [place], [place], [address], [place] tel:[phone] [facility] [address] Spondylosis of lumbar region without myelopathy or radiculopathy 0 Prabhjot Hastings. [address], [place], [place], [address] , [place]. tel:[phone] Referring Provider: Venkata Rick MD, [address], [place], [address] . tel:[phone] [facility], [address], [place], [place], [address], [place] tel:[phone] [facility] [address] Spondylosis of lumbar region without myelopathy or radiculopathy 0 Prabhjot Hastings. [address], [place], [place], [address] , [place]. tel:[phone] Referring Provider: Venkata Rick MD, [address], [place], [address] . tel:[phone] [facility], [address], [place], [place], [address], [place] tel:[phone] [facility] [address] Spondylosis of lumbar region without myelopathy or radiculopathy 0 Prabhjot Hastings. [address], [place], [place], [address] , [place]. tel: [phone] Referring Provider: Venkata Rick MD, [address], [place], [address] . tel:[phone] [facility], [address], [place], [place], [address], [place] tel:[phone] [facility] [address] Spondylosis of lumbar region without myelopathy or radiculopathy 9 Prabhjot Hastings. [address], [place], [place], [address] , [place]. tel: [phone] Referring Provider: Venkata Rick MD, [address], [place], [address] . tel:[phone] Office/outpa tient visit,est, mod [facility], [address], [place], [place], [address], [place] tel:[phone] [facility] [address] lumbar spine pain (chief complaint) Body mass index (BMI) 33.0-33.9, adultSpondylo sis of lumbar region without myelopathy or radiculopathy Neurogenic claudication 9 Prabhjot Hastings. [address], [place], [address] , [place]. tel:[phone] Referring Provider: Venkata Rick MD, [address], [place], [address] . tel:[phone] [facility], [address], [place], [place], [address], [place] tel:[phone] [facility] [address] Spondylosis of lumbar region without myelopathy or radiculopathy 9 Prabhjot Hastings. [address], [place], [address] , [place]. [phone] Referring Provider: Venkata Rick MD, [address], [place], [address] . tel:[phone] [facility], [address], [place], [place], [address], [place] tel:[phone] Spondylosis of lumbar region without myelopathy or radiculopathy 9 Prabhjot Hastings. [address], [place], [place], [address] , [place]. tel:[phone] Referring Provider: Venkata Rick MD, [address], [place], [address] . tel:[phone] Office/outpa tient visit,est, mod [facility], [address], [place], [place], [address], [place] tel:[phone] [facility] - [address] lumbar spine pain (chief complaint) Body mass index (BMI) 33.0-33.9, adultSpondylo sis of lumbar region without myelopathy or radiculopathy Neurogenic claudication 9 Prabhjot Hastings. [address], [place], [address] , [place]. tel:[phone] Referring Provider: Venkata Rick MD, [address], [place], [address] . tel:[phone] [facility], [address], [place], [place], [address], [place] tel:[phone] [facility] [address] Spondylosis of lumbar region without myelopathy or radiculopathy 9 Prabhjot Hastings. [address], [place], [place], [address] , [place]. tel:[phone] Referring Provider: Venkata Rick MD, [address], [place], [address] . tel:[phone] Office/outpa tient visit,[facility], [address], [place], [place], [address], [place] tel:[phone] [facility] 204 lumbar spine pain (chief complaint) Body mass index (BMI) 33.0-33.9, adultSpondylo sis of lumbar region without myelopathy or radiculopathy Neurogenic claudication 9 Prabhjot Hastings. [address], [place], [place], [address] , [place]. tel:[phone] Referring Provider: Chuy Ogden MD H, [address], [place], [address] . tel:[phone] Office/outpa tient visit,[facility], [address], [place], [place], [address], [place] tel:[phone] [facility] 201 lumbar spine (chief complaint) Body mass index (BMI) 33.0-33.9, adultLumbar painLumbar disc disease with radiculopathy 9 Alin Vera . [address], [place], [place], [address] , [place]. tel:[phone] Referring Provider: Chuy Ogden MD H, [address], [place], [address] . tel:[phone] Office/outpa tient visit,[facility], [address], [place], [place], [address], [place] tel:[phone] [facility] 201 right knee pain (chief complaint) Closed nondisplaced fracture of right patella, unspecified fracture morphology, initial encounter 8 Alin Vera . [address], [place], [place], [address] , [place]. tel: [phone] Referring Provider: Chuy Ogden MD H, [address], [place], [address] . tel:[phone] Office/outpa tient visit,est, [facility], [address], [place], [place], [address], [place] tel:[phone] [facility] knee (chief complaint) Contusion of right knee, subsequent encounter 6 Alin Vera . [address], [place], [place], [address] , [place]. tel: [phone] Referring Provider: Chuy Granados, [address], [place], [address] . tel:[phone] [facility], [address], [place], [place], [address], [place] tel:[phone] [facility] Phys Therapy hip (chief complaint) hip (chief complaint) Contusion of right knee, subsequent encounter 6 Lo Causey. [address], [place], [place], [address] , [place]. tel: [phone] Referring Provider: Chuy Ogden MD H, [address], [place], [address] . tel:[phone] Office/outpa tient visit,est, [facility], [address], [place], [place], [address], [place] tel:[phone] [facility] right knee pain (chief complaint) right ankle pain (chief complaint) Contusion of right knee, subsequent encounterSpra in of right ankle, unspecified ligament, subsequent encounter 5 Alin Vera . [address], [place], [place], [address] , [place]. tel: [phone] Referring Provider: Chuy Granados, [address], [place], [address] . tel:[phone] Office/outpa tient visit,[facility], [facility], [address], [place], [place], [address], [place] tel:[phone] [facility] left hand fracture (chief complaint) Nondisplaced fracture of proximal phalanx of left little finger with routine healing, subsequent encounter 5 Nino JIMENEZ Check. [address], [place], [place], [address] , [place]. tel: [phone] Referring Provider: Jerry Clark, [address], [place], [address] . tel:[phone] Office/outpa tient visit,[facility], [facility], [address], [place], [place], [address], [place] tel:[phone] [facility] foot pain (chief complaint) Sprain of right ankle, unspecified ligament, subsequent encounter 5 Alin Vera . [address], [place], [place], [address] , [place]. tel: [phone] Referring Provider: Chuy Ogden MD H, [address], [place], [address] . tel:[phone] Office/outpa tient visit,[facility], [facility], [address], [place], [place], [address], [place] tel:[phone] [facility] left hand small finger fracture (chief complaint) Finger pain, leftClosed displaced fracture of proximal phalanx of right little finger, initial encounter 5 Nino JIMENEZ Check. [address], [place], [address] , [place]. tel: [phone] Referring Provider: Chuy Granados, [address], [place], [address] . tel:[phone] Office/outpa tient visit,est, [facility], [address], [place], [place], [address], [place] tel:[phone] [facility] right knee pain (chief complaint) right ankle pain (chief complaint) knee (chief complaint) Right knee painRight ankle painContusion of right knee, subsequent encounter 5 Alin Vera . [address], [place], [place], [address] , [place]. [phone] Referring Provider: Chuy Granados, [address], [place], [address] . tel:[phone] [facility], [address], [place], [place], [address], [place] tel:[phone] [facility] 400 Swelling of right lower extremity 5 Alin Vera . [address], [place], [place], [address] , [place]. [phone] Referring Provider: Minerva Clark, [address], [place], [address] . tel:[phone] Office/outpa tient visit,[facility], [facility], [address], [place], [place], [address], [place] tel:[phone] [facility] 400 right knee pain (chief complaint) left hand swelling (chief complaint) Right knee painLeft hand painPrimary osteoarthriti s of right kneeClosed nondisplaced fracture of right patella, unspecified fracture morphology, initial encounterFrac ture of proximal phalanx of digit of left hand 5 Lashonda Palma. [address], [place], [address] , [place]. [phone] Referring Provider: Minerva Clark, [address], [place], [address] . tel:[phone] [facility], [address], [place], [place], [address], [place] tel:[phone] [facility] 400 right knee pain (chief complaint) Primary osteoarthriti s of right knee Dec- 5 Alin Vera . [address], [place], [place], [address] , [place]. tel:[phone] Referring Provider: Chuy Ogden MD H, [address], [place], [address] . tel:[phone] [facility], [address], [place], [place], [address], [place] tel:[phone] [place] [address] right knee pain (chief complaint) Primary osteoarthriti s of right knee 5 Alin Vera . [address], [place], [address] , [place]. tel:[phone] Referring Provider: Chuy Ogden MD H, [address], [place], [address] . tel:[phone] [facility], [address], [place], [place], [address], [place] tel:[phone] [facility] 400 right knee pain (chief complaint) Primary osteoarthriti s of right knee 5 Alin Vera . [address], [place], [address] , [place]. tel:[phone] Referring Provider: Chuy Ogden MD H, [address], [place], [address] . tel:[phone] Office/outpa tient visit,est, mod [facility], [address], [place], [place], [address], [place] tel:[phone] [facility] right knee pain (chief complaint) Degenerative joint disease of knee 5 Alin Vera . [address], [place], [place], [address] , [place]. tel: [phone] Referring Provider: Chuy Ogden MD H, [address], [place], [address] . tel:[phone] Office/outpa tient visit,new, [facility], [address], [place], [place], [address], [place] tel:[phone] [facility] right knee pain (chief complaint) No Information 5 Alin Vera . [address], [place], [address] , [place]. tel: [phone] Referring Provider: Chuy Ogden MD H, [address], [place], [address] . tel:[phone] [facility], [address], [place], [place], [address], [place] tel:[phone] [place] [address] No Information 5 Alin Vera . [address], [place], [place], [address] , . tel: [phone] Family History Family Member Type Diagnosis Age At Onset Father Problem (finding) Mother Problem (finding) Stomach Sister Problem (finding) malignant neop lasm of breast in first degree relative Mother Problem (finding) Payers Payer name Insurance type Covered alliance party ID Authoriza tion(s) MEDICARE MB [id number] AARP SUPPLEMENT CI [id number] Social History Type Description Quantity Date Captured [...] for the treatment of pain such as ctoi-mos-xnjiaix medications, acupuncture, cognitive and physical therapy. The risk of taking prescribed opioid medications were discussed including but not limited to addiction, injury, overdose, and . The patient has been provided the approved [facility] educational pamphlet non-opioid alternatives if opioids [...] for the treatment of pain such as tgby-bwa-xwoyhil medications, acupuncture, cognitive and physical therapy. The risk of taking prescribed opioid medications were discussed including but not limited to addiction, injury, overdose, and . The patient has been provided the approved [facility] educational pamphlet non-opioid alternatives if opioids [...] for the treatment of pain such as chsw-qub-iilrmvm medications, acupuncture, cognitive and physical therapy. The risk of taking prescribed opioid medications were discussed including but not limited to addiction, injury, overdose, and . The patient has been provided the approved [facility] educational pamphlet non-opioid alternatives if opioids [...] for the treatment of pain such as oeqt-rod-qhnppbw medications, acupuncture, cognitive and physical therapy. The risk of taking prescribed opioid medications were discussed including but not limited to addiction, injury, overdose, and . The patient has been provided the approved [facility] educational pamphlet non-opioid alternatives if opioids [...] right ankle, unspecified ligament, subsequent encounter Recommend full time paramedic use and the splint was adjusted to [...] the office by one of the physicians nutritional assistant and placed in the immobilizer. 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 Has tried conservative measures rest, OTC NSAIDs [...]
[2025-02-02 11:08] VITALS: BP 138/74; PULSE 65; RESP 16; O2SAT 96; BMI 37.1
--- NOTE | 2025-02-02 11:08 | MHC.PC.OV ---
Vital Signs 02/02/25 11:08 02/02/25 11:15 Height 5 ft 6 in 5 ft 6 in Weight 230 lb BMI 37.1 BP 138/74 Blood Pressure Location Rt brachial Position Sitting Respiration 16 Pulse 65 Pulse Source Pulse Oximeter Pulse Oximetry (%) 96 Oxygen Delivery Method Room Air Intake Visit Reasons: 2 week follow up Rubber Ball Finisher Required: No Accompanied by: Self / Same As Patient Allergies empagliflozin (From ContaAzul) Allergy (Verified 02/02/25 11:15) sores Tobacco use date assessed: 02/02/25 Fall risk assessment: No Falls in past year Last assessed Fall Risk: 02/02/25 Dental Screening Dental Screen Date: 02/02/25 Did you have a dental visit in the last 12 months?: No Did you have a dental problem in the last 6 months where you did not have access to dental care?: No Was dental information given to patient?: No HPI HPI Comments History of Present Illness Details History of Present Illness The patient is an 84-year-old female presenting for follow-up to address recent falls, declining mobility, and medication management. Functional Decline and Falls: The patient's daughter reports that the patient has fallen twice recently and is experiencing significant functional decline. The first fall occurred in a public restroom, and the second was when she fell out of bed in the middle of the night, requiring the fire department's assistance to get up. Most recently, the patient was unable to stand up from a chair on her own. The first fall resulted in a leg injury, which is impeding her recovery and ability to strengthen her legs through physical therapy. Her daughter feels her situation at home is unsafe and that she requires a higher level of care, as she was discharged from rehab prematurely after a prior hospitalization. Medication Management: The patient has not taken warfarin for two weeks because of a planned switch to apixaban, which was ultimately not filled due to a high copay. She has also not been taking her pantoprazole, losartan, or atenolol since her last surgery, despite having a history of sick sinus syndrome and atrial fibrillation. Care Coordination: The daughter has requested additional help at home, and a referral for PSYCHOLOGICAL TESTS SALES AGENT services has been initiated. The patient has been seen by podiatry twice weekly for wound dressing changes. She has upcoming appointments scheduled with sleep medicine and nephrology. Surgical History: - Prior podiatry surgery Medications: - Pantoprazole (not currently being taken) - Losartan (not currently being taken) - Atenolol (not currently being taken) - Warfarin (not taken for 2 weeks) Social History: - Functional Status: The patient is wheelchair-bound and convalescing at home. - Living Situation: Lives with her daughter, who is her primary caregiver. - Caregiver Support: Her daughter works at night and expresses significant concern about the patient's safety, feeling she needs a higher level of care. - Support Services: A request for PSYCHOLOGICAL TESTS SALES AGENT services has been initiated to provide additional help at home. Diagnostic Results: - Last laboratory work was completed on January 19; results were not discussed. Past Medical History - Atrial fibrillation - Sick sinus syndrome - History of hospitalization followed by a rehab stay - Wheelchair-bound Health Maintenance - Ordering repeat lab work today. - Referral placed for warfarin clinic for monthly INR monitoring. - Referral to community navigator for additional home support services. - Follow-up with podiatry twice weekly is ongoing. - Upcoming appointments with sleep medicine and nephrology are scheduled. 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 Social History Housing: House Alcohol intake: current Alcohol intake frequency: does not drink Patient Tobacco Use Status: Never used Tobacco service: No Current occupational status: retired Cognitive needs: Yes Hearing needs: No Vision needs: Yes (reading glasses) Questionnaire PHQ-9 Over the last 2 weeks, how often have you been bothered by any of the following problems? 1. Little interest or pleasure in doing things: not at all 2. Feeling down, depressed, or hopeless: not at all 3. Trouble falling or staying asleep, or sleeping too much: not at all 4. Feeling tired or having little energy: not at all 5. Poor appetite or overeating: not at all 6. Feeling bad about yourself - or that you are a failure or have let yourself or your family down: not at all 7. Trouble concentrating on things, such as reading the newspaper or watching television: not at all 8. Moving or speaking so slowly that other people could have noticed. Or the opposite - being so fidgety or restless that you have been moving around a lot more than usual: not at all 9. Thoughts that you would be better off or of hurting yourself in some way: not at all Total score: 0 Source: Developed by Drs. Robert Romo, Codi Herman, Vahid Navarro and colleagues, with an educational na from [employer]. Thrive Questionnaire Date Thrive assessed: 02/02/25 I am a: Patient What is your living situation today?: I have a steady place to live Within the past 12 months, did the food you bought not last and you didn't have the money to get more?: Never true Within the past 12 months, did you worry whether your food would run out before you got money to buy more?: Never true Do you have trouble paying for medicines?: No Do you have trouble getting transportation to medical appointments?: No Do you have trouble paying your heating and electricity bill?: No Do you have trouble taking care of your child, family member or friend?: No Are you currently unemployed and looking for a job?: No Are you interested in more education?: No Please select the resources that you would like help with: Care for elder or disabled Currently or been in a relationship where the following occur: No concerns reported THRIVE Score: 0 AUDIT C Alcohol Use Questionnaire (AUDIT-C) 1. How often do you have a drink containing alcohol?: Never Total Score: 0 CHAD-7 AMB Questionnaire CHAD-7 Date CHAD - 7 assessed: 02/02/25 Feeling nervous, anxious, or on edge: 0 = Not at all Not being able to stop or control worryin = Not at all Worrying too much about different things: 0 = Not at all Trouble relaxin = Not at all Being so restless that it is hard to sit still: 0 = Not at all Becoming easily annoyed or irritable: 0 = Not at all Feeling afraid as if something awful might happen: 0 = Not at all Total CHAD-7 score (0-4 normal; 5-9 mild; 10-14 moderate; 15-21 severe): 0 Source: Developed by Drs. Robert Romo, Codi Herman, Vahid Navarro and colleagues, with an educational na from [employer]. Review of Systems Narrative Review of Systems - Neurological: Reports two recent falls. - Musculoskeletal: Reports leg injury secondary to a fall and inability to rise from a chair. - Constitutional: Reports generalized weakness and slow recovery. 10-point ROS reviewed and negative except as noted in HPI Physical exam (Primary Care) Vital Signs: Last Vital Signs Pulse 65 02/02/25 11:08 Resp 16 02/02/25 11:08 BP 138/74 02/02/25 11:08 Pulse Ox 96 02/02/25 11:08 Oxygen Delivery Method Room Air 02/02/25 11:08 BMI result Body Mass Index 37.1 Tobacco/Smoking Status: Tobacco use Status Tobacco use date assessed 02/02/25 02/02/25 11:16 Patient Tobacco Use Status Never used Tobacco 02/02/25 11:12 PHQ-9: PHQ-9 Score PHQ-9: Total score 0 02/02/25 11:16 Thrive Assessment: Date of Thrive Assessment Date Thrive assessed 02/02/25 02/02/25 11:16 Currently or been in a relationship where the following occur: No concerns reported Narrative Physical Exam General: Well-appearing, in no acute distress. Vital signs: Within normal limits. HEENT: Normocephalic, atraumatic. PERRLA, EOMI. Conjunctiva clear, sclera anicteric. Oropharynx clear, mucous membranes moist. TMs intact bilaterally. Neck: Supple, no lymphadenopathy, no thyromegaly, no JVD or carotid bruits. Cardiovascular: RRR, normal S1/S2, no murmurs, rubs, or gallops. Peripheral pulses 2+ and symmetric. No edema. Respiratory: Lungs clear to auscultation bilaterally, no wheezes, rales, or rhonchi. Normal effort. Abdomen: Soft, non-tender, non-distended. Normoactive bowel sounds. No hepatosplenomegaly, no masses. MSK: Full range of motion, no joint swelling or deformity. Normal gait. Skin: Warm, dry, intact. No rashes, lesions, or pallor. Neuro: Alert and oriented x3. Cranial nerves II-XII intact. Strength 5/5 throughout. Sensation intact. Reflexes 2+ symmetric. wheelchair bound. Psych: Appropriate mood and affect. Normal judgment and insight. Coding Level of Care Code Est Pt Level 3 (84708) Diagnoses Hypertension associated with chronic kidney disease due to type 2 diabetes mellitus E11.22; I12.9 Elevated BP without diagnosis of hypertension R03.0 Coronary artery disease I25.10 Pacemaker Z95.0 Atrial fibrillation I48.91 Peripheral artery disease I73.9 Hyperlipidemia E78.5 Chronic kidney disease N18.9 Amputation of fifth toe, right, traumatic S98.131A Declining functional status R53.81 History of fall Z91.81 Assessment & Plan Assessment & Plan (1) Hypertension associated with chronic kidney disease due to type 2 diabetes mellitus: Code(s): E11.22 - Type 2 diabetes mellitus with diabetic chronic kidney disease; I12.9 - Hypertensive chronic kidney disease with stage 1 through stage 4 chronic kidney disease, or unspecified chronic kidney disease Category: Medical (2) Elevated BP without diagnosis of hypertension: Code(s): R03.0 - Elevated blood-pressure reading, without diagnosis of hypertension Category: Medical (3) Coronary artery disease: Code(s): I25.10 - Atherosclerotic heart disease of [place] coronary artery without angina pectoris Category: Medical (4) Pacemaker: Code(s): Z95.0 - Presence of cardiac pacemaker Category: Medical (5) Atrial fibrillation: Code(s): I48.91 - Unspecified atrial fibrillation Category: Medical (6) Peripheral artery disease: Code(s): I73.9 - Peripheral vascular disease, unspecified Category: Medical (7) Hyperlipidemia: Code(s): E78.5 - Hyperlipidemia, unspecified Category: Medical (8) Chronic kidney disease: Code(s): N18.9 - Chronic kidney disease, unspecified Category: Medical (9) Amputation of fifth toe, right, traumatic: Code(s): S98.131A - Complete traumatic amputation of one right lesser toe, initial encounter Category: Medical (10) Declining functional status: Code(s): R53.81 - Other malaise (11) History of fall: Code(s): Z91.81 - History of falling Plan Consent Patient was informed and verbally consented to the use of an ambient scribe for clinic note documentation during this visit. Plan 1. Functional Decline And Falls - Acknowledged the family's concerns regarding the patient's safety due to recurrent falls and functional decline. - Confirmed that PSYCHOLOGICAL TESTS SALES AGENT services are being initiated by the medical charge entry specialist. - A referral will be placed to a community navigator to explore all available community and home care options. - Will order lab work today to get a new baseline. 2. Anticoagulation Management - Due to the high copay of apixaban, the patient will be continued on warfarin for anticoagulation. - The patient was instructed to resume her warfarin prescription, which has been sent to her pharmacy. - A referral will be placed for the warfarin clinic at [place] to ensure monthly INR monitoring for therapeutic levels. - Advised the patient to contact the clinic if she has not heard from them within a week. 3. Medication Adherence - Instructed the patient to resume taking her prescribed cardiac medications (losartan, atenolol) and pantoprazole, as these are important for her heart conditions. Discussion Notes I had a detailed discussion with the patient and her daughter regarding the current unsafe home situation due to recent falls and functional decline. I explained the increased risk of serious injury, such as bleeding or fractures, from falling while on warfarin and stressed the importance of preventing further falls. I informed them that we are initiating a request for PSYCHOLOGICAL TESTS SALES AGENT services and placing a referral to a community navigator to explore options for a higher level of care. We reviewed her medications, and I instructed her to resume taking her warfarin, pantoprazole, losartan, and atenolol as prescribed. I also explained that because apixaban has a high copay, we will continue with warfarin, and I will place a referral to a warfarin clinic for regular INR monitoring, advising them to follow up if they do not receive a call within a week. Finally, I ordered new blood work to be done today to establish a current baseline. Patient Instructions - Restart taking your prescribed warfarin, losartan, atenolol, and pantoprazole immediately. - Expect a call from the warfarin clinic at [facility] to schedule monthly blood tests to monitor your warfarin levels. If you do not hear from them within one week, please contact them. - You will be contacted about Fundraising Specialist (PSYCHOLOGICAL TESTS SALES AGENT) services and by a community navigator who can help find more support for you at home. - Make sure to get your blood drawn for lab work today. - Continue with your scheduled follow-up care, including your twice-weekly podiatry visits and upcoming appointments with sleep medicine and nephrology. - It is very important to try and prevent falls, especially while taking a blood thinner like warfarin, as it can lead to serious bruising or injury. Medical Decision Making The patient is an 84-year-old female with significant safety concerns due to recurrent falls, marked functional decline, and medication non-adherence. The immediate priorities are to mitigate fall risk, ensure she is on appropriate medical therapy for her underlying conditions, and arrange for increased support at home. Given her high fall risk and history of atrial fibrillation, anticoagulation is critical but poses a bleeding hazard. Due to financial barriers with apixaban, warfarin will be restarted, necessitating a referral to a warfarin clinic for close INR monitoring to maintain a therapeutic range. Resumption of her cardiac medications (atenolol, losartan) is imperative for managing her sick sinus syndrome and atrial fibrillation. The patient's current home situation is deemed unsafe by her daughter, warranting the initiation of PSYCHOLOGICAL TESTS SALES AGENT services and a referral to a community navigator to explore more comprehensive care solutions, including the possibility of a higher level of care if needed. New laboratory studies are ordered to establish a current baseline and assess her overall health status. Total time spent caring for the patient today was 20 minutes. This includes time spent before the visit reviewing the chart, time spent documenting, and time spent reviewing laboratory results, diagnostic imaging, medications, performing a medically necessary evaluation, counseling on diagnoses, care coordination.. Orders: Orders Comprehensive Met. Panel 02/02/25 Z13.9 - Encounter for screening, unspecified Hepatitis B Surface Antigen 02/02/25 Z13.9 - Encounter for screening, unspecified Magnesium 02/02/25 Z13.9 - Encounter for screening, unspecified Prothrombin Time INR 02/02/25 Z13.9 - Encounter for screening, unspecified Partial Thromboplastin Time 02/02/25 Z13.9 - Encounter for screening, unspecified Vitamin B12 and Folate 02/02/25 Z13.9 - Encounter for screening, unspecified Vitamin D 1,25 dihydroxy 02/02/25 Z13.9 - Encounter for screening, unspecified PT, INR - Anti Coag Clinic 02/02/25 I48.91 - Unspecified atrial fibrillation, Z79.01 - group home (current) use of anticoagulants Complete Blood Count Auto Diff 02/02/25 Z13. - Encounter for screening, unspecified Hemoglobin A1c 02/02/25 Z13.9 - Encounter for screening, unspecified Hepatitis B Surface Antibody 02/02/25 Z13.9 - Encounter for screening, unspecified Hepatitis C Antibody 02/02/25 Z13.9 - Encounter for screening, unspecified Lipid Panel 02/02/25 Z13.9 - Encounter for screening, unspecified TSH reflex Free T4 02/02/25 Z13. - Encounter for screening, unspecified UA CC w/rflx Micro + Cult 02/02/25 Z13.9 - Encounter for screening, unspecified
== END 2025-02-02 11:47 | disposition home or self-care (01) ==
LOC: HO.HMCFMS 11:04
PROVIDERS: PCP Student in an Organized Health Care Education/Training Program; Visit Provider Student in an Organized Health Care Education/Training Program
DX: E11.22 Type 2 diabetes mellitus with diabetic chronic kidney disease (principal); I12.9 Hypertensive chronic kidney disease with stage 1 through stage 4 chronic kidney disease, or unspecified chronic kidney disease; R03.0 Elevated blood-pressure reading, without diagnosis of hypertension; I25.10 Atherosclerotic heart disease of native coronary artery without angina pectoris; Z95.0 Presence of cardiac pacemaker; I48.91 Unspecified atrial fibrillation; I73.9 Peripheral vascular disease, unspecified; E78.5 Hyperlipidemia, unspecified; N18.9 Chronic kidney disease, unspecified; S98.131A Complete traumatic amputation of one right lesser toe, initial encounter; R53.81 Other malaise; Z91.81 History of falling

== ENCOUNTER 2025-02-06 10:01 | Outpatient (AMB) | payer MEDICARE, SELFPAY ==
--- NOTE | 2025-02-06 10:53 | A.OFFVIS_ITS ---
Vital Signs 02/06/25 10:54 Height 5 ft 6 in Weight 230 lb BMI 37.1 BP 118/72 Blood Pressure Location Rt brachial Position Sitting Pulse 50 Pulse Source Pulse Oximeter Pulse Oximetry (%) 98 Oxygen Delivery Method Room Air Intake Visit Reasons: INP- Sleep Apnea-Conf Intake Note: Patient presents [employer] Sleep Apnea. The patient has a noted reluctance to adhere to her CPAP therapy, with persistent fatigue and non-restorative sleep attributed to the combination of sleep apnea and heart failure. Patient lost CPAP. NO hard time falling sleep/staying asleep. Always tired. Goes to bed at 10-11pm and wakes up at 8am. Wakes up 2-3times a night. Naps 1-2hrs. No headaches. Last sleep study was about 5-6yrs ago in [place]. Accompanied by: Daughter Allergies [email or web address] (From [facility]) Allergy (Verified 02/06/25 11:00) sores HPI Comments Details: 84 year old female presents for an evaluation of KYLE, by her PCP Dr. Desir, she used to have a cpap and could not tolertate it due to claustrophobia. She has been chronically fatigued since her foot surgery in [place] 5 weeks ago, she takes 1-2 hour naps daily. She goes to bed at 10pm, wakes up 3-4 times a night for the bathroom, then wakes up at 8am feeling exhausted most days. She denies snoring, but gasps for air. Denies bruxism, clenching her jaws, acid reflux, and morning headaches. Mood is stable. Diet is poor however improving, she hydrates. Memory is okay she repeats herself per daughter, has difficulty with names, word recall and forgets days of the weeks. She is socially inactive recently moved in with her daughter, has lumbar stenosis, unable to get out of a chair and walks as tolerable. Denies RLS, denies paresthesias, denies parasomnias, abnormal movements, thrashing, and or flailing behaviors. Labs reviewed with pt she has T2DM, says her blood sugar goes low, discussed pt education with nurse navigator. [facility] Medical History Amputation of fifth toe, right, traumatic Chronic kidney disease Elevated BP without diagnosis of hypertension Hypertension associated with chronic kidney disease due to type 2 diabetes mellitus Hyperlipidemia Atrial fibrillation Pulmonary hypertension Coronary artery disease Sick sinus syndrome History of tuberculosis Pacemaker Osteomyelitis Lymphedema Sleep apnea (HFpEF) heart failure with preserved ejection fraction Diabetes mellitus type 2 with complications Surgical History History of lung surgery S/P foot surgery Family History Father Stomach cancer Mother No problems noted. Social History Housing: House Alcohol intake: current Alcohol intake frequency: does not drink Patient Tobacco Use Status: Never used Tobacco service: No Current occupational status: retired Cognitive needs: Yes Hearing needs: No Vision needs: Yes (reading glasses) Physical Exam Vital Signs: Last Vital Signs Pulse 50 02/06/25 10:54 BP 118/72 02/06/25 10:54 Pulse Ox 98 02/06/25 10:54 Oxygen Delivery Method Room Air 02/06/25 10:54 BMI result Body Mass Index 37.1 Const General: cooperative, comfortable and no acute distress Nutritional Appearance: obese Orientation/consciousness: patient oriented x3 Limitations: wheelchair HEENT Face and sinus: Yes face symmetric Teeth and gingiva: other (mallmpti score is 4) Eyes Pupils: Equal, round and reactive pupils present Neck Other: ROM limited laterally Resp Effort & Inspection: normal respiratory effort and able to speak in complete sentences Neuro Other: r. shoulder rotator cuff tear l groin muscle pull, is in PT. r. foot 5th digit amputation. General: patient oriented x3 Cranial nerves: Yes Equal, round and reactive pupils present, Yes Normal accommodation reflex present and Yes Ability to bilaterally elevate shoulders present (r. shoulder pain) Cognition (Neuro): normal cognition Gait exam (Neuro): Assistive device used Motor exam (neuro): Abnormal motor strength present and Abnormal muscle tone present Coordination: [id number] test normal Psych Appearance: well kempt Speech and movement: Slowed movement present (Neuro) Thought process: Normal thought process present Results Reviewed Results Reviewed: labs reviewed with pt. Assessment & Plan Assessment & Plan (1) Excessive daytime sleepiness: Code(s): G47.19 - Other hypersomnia Category: Medical (2) Hypersomnia: Code(s): G47.10 - Hypersomnia, unspecified Category: Medical Plan HST r/o KYLE pt. will decide if she wants to start cpap and trial it again, or go to sleep dentistry or [facility] evaluation, as she has a pacemaker due to sick sinus syndrome and AFib. Chronically fatigue, reviewed labs with pt today, B12 is elevated, may start to reduce intake of B12, every other night. Recent history of 5th digit amputation, A1c is elevated, will send pt to community navigator Diabetes management and education, attn: Nitin. F/u in 3 months Orders: Orders RT home sleep study Today G47.19 - Other hypersomnia Patient Instructions: Sleep Hygiene provided: set a scheduled bedtime and wake time to help regulate the circadian rhythm and balance the release of pituitary hormones. Sleep in a dark room, temperatures below 68 degrees, and no devices n bed. Limit caffeinated products 6 hours prior to bed, and limit fluids 2-4 hours prior to bed. Gentle night yoga, diffusing essential oils, and playing soft music can be relaxing. Diabetes patient's a1c is 6.9 she is on short and retirement insulin and still experiencing hypoglycemia, she needs pt. education. Msg to Community navigator attn:Nitin pt needs education on administering both insulins and managing hypoglycemia as she is not certain why her blood sugars are dropping and would like more support, recent h/o 5th digit amputation. Coding Level of Care Code New Pt Level 4 (87273) Diagnoses Excessive daytime sleepiness G47.19 Hypersomnia G47.10
[2025-02-06 10:54] VITALS: BP 118/72; PULSE 50; O2SAT 98; BMI 37.1
== END 2025-02-06 11:52 | disposition home or self-care (01) ==
LOC: HO.HSMS 10:02
PROVIDERS: PCP Student in an Organized Health Care Education/Training Program; Visit Provider Physician Assistant Medical
DX: G47.19 Other hypersomnia (principal); G47.10 Hypersomnia, unspecified
CPT/HCPCS: 99204

== ENCOUNTER 2025-02-06 10:01 | Outpatient (AMB) | payer MEDICARE, SELFPAY ==
--- NOTE | 2025-02-06 10:17 | A.OFFVIS_ITS ---
Vital Signs 02/06/25 10:18 Height 5 ft 6 in Weight 230 lb BMI 37.1 Intake Visit Reasons: RT baby toe open wound fu Intake Note: Ana M is an 85 year old female who presents today for a follow up on her 5th toe amputation. During her last visit her sutures where removed and dressed with antibiotic cream, 4 x 4 gauze, Britni, and a noncompressive Jd bandage. She states she has a visiting nurse who tends to her foot and her last visit with them was on 02/01/25. Patient has concerns of bilateral redness of her toes Allergies empagliflozin (From [employer]) Allergy (Verified 02/06/25 11:00) sores HPI HPI RT baby toe open wound fu: Details: 84-year-old female with past medical history of diabetes mellitus type 2, peripheral artery disease status post angioplasty right lower extremity, on warfarin, returns for right foot wound. Her visiting nurse has been changing her dressings twice a week. She denies any new complications. She does endorse a recent fall where she injured her left thigh. She saw her PCP afterwards. She notes improvement, only having pain when getting up from sitting however still persistent. She is also concerned for a new possible wound to her right foot 2nd toe. History: The patient states that she moved from [place] in December after a right 5th toe amputation approximately 3 weeks ago. She stayed in the hospital for approximately 1 week and then was in a subacute rehab facility for almost 2 weeks. She was given an oral antibiotic after discharge, which she has now completed. She states she has had the right foot ulcer chronically for several years which eventually had become acutely infected and required amputation. Today, the patient denies any pain to her lower extremities. She does endorse numbness her feet. She denies nausea vomiting fever chills shortness of breath or chest pain. She is unsure of her last A1c, however reports it to be typically under 10%. [facility] Medical History Amputation of fifth toe, right, traumatic Chronic kidney disease Elevated BP without diagnosis of hypertension Hypertension associated with chronic kidney disease due to type 2 diabetes mellitus Hyperlipidemia Atrial fibrillation Pulmonary hypertension Coronary artery disease Sick sinus syndrome History of tuberculosis Pacemaker Osteomyelitis Lymphedema Sleep apnea (HFpEF) heart failure with preserved ejection fraction Diabetes mellitus type 2 with complications Surgical History History of lung surgery S/P foot surgery Family History Father Stomach cancer Mother No problems noted. Social History Housing: House Alcohol intake: current Alcohol intake frequency: does not drink Patient Tobacco Use Status: Never used Tobacco service: No Current occupational status: retired Cognitive needs: Yes Hearing needs: No Vision needs: Yes (reading glasses) Review of Systems Const All systems reviewed & are unremarkable except as noted in HPI and below Physical Exam Vital Signs: BMI result Body Mass Index 37.1 Extrem Other: *Bilateral Lower Extremity Focused Diabetic Foot Exam Vascular: DP/PT 1/4 right foot, CFT<3s to digits, TG warm to cool, no pedal edema, pedal hair absent Derm: Status post right foot partial 5th ray amputation 2 cm x 1 cm granular wound along the central aspect of the 5th metatarsal incision. No drainage erythema or clinical signs of infection. No deep probing or exposed tendon/bone. 0.2 x 0.2 cm granular wound of the right dorsal medial aspect of the 2nd digit. Nails: Elongated, thickened, dystrophic, discolored toenails x 10 with multiple calluses Discolored bilateral lower extremities with hemosiderin deposit. Dry scaling bilateral feet. Multiple calluses over and in between digits. Neuro: Protective sensation grossly diminished to bilateral lower extremities Msk: Status post right foot partial 5th ray amputation. No pain on palpation. Footwear Assessment: Shoes inspected; appropriate fit, no excessive wear, or foreign objects noted. Office Procedures AMB Debridement/Avulsion Podia Details: Procedure: Sharp excisional debridement Depth: Subcutaneous layer Indication: Right diabetic foot ulcer Anesthesia: Lidocaine jelly 2% Description: The site was prepped using alcohol/cleanser. A curette was used to perform a sharp excisional wound debridement of the lesion to the level of subcutaneous tissue. The lesion measured 2.1 cm by 0.6 cm at the end of debridement. Dressings: Xeroform, 4 x 4 gauze, Britni. Tolerance: Patient tolerated procedure well, no immediate complications. 25752-[id number] of skin tissue Procedure code (CPT) selection complete Assessment & Plan Assessment & Plan (1) Ulcer of right foot due to type 2 diabetes mellitus: Code(s): E11.621 - Type 2 diabetes mellitus with foot ulcer; L97.519 - Non-pressure chronic ulcer of other part of right foot with unspecified severity Category: Medical Plan: * As per patient, she had negative margins for osteomyelitis upon amputation. She also completed her postoperative antibiotic course. At this time there are no clinical signs of infection, there will be no further workup for her 5th digit osteomyelitis which underwent surgical resection. * The right foot wound was excisionally debrided using a curette. All wound measurements increased by 0.1 cm. The wound was dressed using Xeroform, 4 x 4 gauze, Britni, and a non-compressive Jd bandage. * Visiting nurse - continue daily dressing changes using mupirocin ointment and 4 x 4 gauze and Britni secured with tape. * Continue mupirocin ointment * Follow up in 2 weeks. We will plan to debride nails after her wound is healed. * Patient was instructed to present earlier if she has any new worsening signs of infection to her feet. (2) Peripheral artery disease: Code(s): I73.9 - Peripheral vascular disease, unspecified Category: Medical Plan: * Patient states she had a angioplasty to right lower extremity. She is not sure if she had any stents placed or the extent of her procedure. She was recommended by her previous vascular surgeon to find a new vascular surgeon here in [place] once she moves back. * Pending appointment with Dr. Lux vascular surgery. * Rx Arterial Duplex Orders: Orders US arterial duplex LE BI Today E11.621 - Type 2 diabetes mellitus with foot ulcer, I73.9 - Peripheral vascular disease, unspecified, L97.519 - Non-pressure chronic ulcer of other part of right foot with unspecified severity AMB Debridement/Avulsion Podiatry Today E11.621 - Type 2 diabetes mellitus with foot ulcer, L97.519 - Non-pressure chronic ulcer of other part of right foot with unspecified severity Medications: New ammonium lactate 12% (AmLactin) 1 appl topical DAILY 225 grams 5RF xerosis L85.3 - Xerosis cutis Coding Level of Care Code Procedure Only Diagnoses Ulcer of right foot due to type 2 diabetes mellitus E11.621; L97.519 Peripheral artery disease I73.9 CPT Codes Skin Debridement - CPT: 83001-Lvepernscjz of skin tissue ([id number])
[2025-02-06 10:18] VITALS: BMI 37.1
== END 2025-02-06 10:53 | disposition home or self-care (01) ==
LOC: HO.HPODS 10:02
PROVIDERS: PCP Student in an Organized Health Care Education/Training Program; Visit Provider Student in an Organized Health Care Education/Training Program
DX: E11.621 Type 2 diabetes mellitus with foot ulcer (principal); L97.519 Non-pressure chronic ulcer of other part of right foot with unspecified severity; I73.9 Peripheral vascular disease, unspecified
CPT/HCPCS: 11042

== ENCOUNTER → 2025-02-06 10:01 | Outpatient (BNVA) | payer MEDICARE, SELFPAY | PROVIDERS: PCP Student in an Organized Health Care Education/Training Program; Visit Provider Student in an Organized Health Care Education/Training Program | DX: G47.19 Other hypersomnia (principal); E11.621 Type 2 diabetes mellitus with foot ulcer; L97.519 Non-pressure chronic ulcer of other part of right foot with unspecified severity; E11.51 Type 2 diabetes mellitus with diabetic peripheral angiopathy without gangrene | CPT/HCPCS: 11042 ==

== ENCOUNTER 2025-02-12 11:07 | Outpatient (AMB) | payer MEDICARE, SELFPAY ==
--- NOTE | 2025-02-12 11:12 | HO.NEPHOV_ITS ---
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 Moved from [place] to live with daughter Laya. Currently on a wheel chair but is able to ambulate at home to do ADLs mostly independent. Hypertension: on losartan 100 mg, atenolol 50 mg doesnt check blood pressures Diabetes mellitus: 50 years on Novolin 5 units nightly, sliding scale lispro CKD: seeing a renal doctor in [facility] for about 6-7years on warfarin for anticoagulation due to mechanical heart valve [facility] Medical History Amputation of fifth toe, right, traumatic Chronic kidney disease Elevated BP without diagnosis of hypertension Hypertension associated with chronic kidney disease due to type 2 diabetes mellitus Hyperlipidemia Atrial fibrillation Pulmonary hypertension Coronary artery disease Sick sinus syndrome History of tuberculosis Pacemaker Osteomyelitis Lymphedema Sleep apnea (HFpEF) heart failure with preserved ejection fraction Diabetes mellitus type 2 with complications Surgical History History of lung surgery S/P foot surgery Family History Father Stomach cancer Mother No problems noted. Social History Housing: House Alcohol intake: current Alcohol intake frequency: does not drink Patient Tobacco Use Status: Never used Tobacco service: No Current occupational status: retired Cognitive needs: Yes Hearing needs: No Vision needs: Yes (reading glasses) Review of Systems Const Details: Const : no body aches, no chills, wheel chair bound can walk around home Eyes: no blurry vision and no change in vision ENT: no bleeding gums and no change in voice, no dizziness Card: no chest pain, no shortness of breath, no orthopnea, no PND Resp: no cough, no excessive phlegm production, no SOB GI: no abdominal pain and no nausea, no vomiting : no hematuria, no urinary frequency and no difficulty voiding Musc: no abnormal gait, no bone pain Neuro: no abnormal movements, no weakness, no dizziness, + abnormal gait Psych: no behavioral changes and no change in appetite Endo: no change in body appearance, no cold intolerance Physical Exam Vital Signs: Last Vital Signs BP 102/70 02/12/25 11:13 General: not in any acute distress, comfortable, sitting on the chair Nutritional Appearance: well nourished and overweight Eyes: normal position, no icterus Neck: No lymphadenopathy, no thyromegaly Resp: bilateral air entry equal, no added sounds present Cardio: normal S1, S2 heard, no murmur heard, no edema GI: soft, nontender, no guarding, no hepatosplenomegaly : bladder normal to inspection, bladder normal to palpation, no renal angle tenderness Skin: no rashes or lesions noted and elasticity normal Neuro: oriented to person, oriented to place, oriented to time and moves all extremities Results Reviewed Nephrology Results: Hgb, (12.0-16.0) 14.1 g/dl 02/02/25 WBC, (4.8-10.8) 10.0 X10*3/uL 02/02/25 Plt Count, (160-400) 147 X10*3/uL L 02/02/25 Sodium, (135-145) 141 mmol/L 02/02/25 Potassium, (3.3-5.1) 4.5 mmol/L 02/02/25 Chloride, (96-108) 104 mmol/L 02/02/25 Carbon Dioxide, (22-29) 24 mmol/L 02/02/25 BUN, (9-16) 46 mg/dL H 02/02/25 Creatinine, (0.5-1.4) 1.56 mg/dL H 02/02/25 Calcium, (8.4-10.2) 9.8 mg/dL 02/02/25 Urine Protein, (Neg-Trace) 30 (1+) mg/dL H 02/02/25 Assessment & Plan Assessment & Plan (1) Hypertension associated with chronic kidney disease due to type 2 diabetes mellitus: Code(s): E11.22 - Type 2 diabetes mellitus with diabetic chronic kidney disease; I12.9 - Hypertensive chronic kidney disease with stage 1 through stage 4 chronic kidney disease, or unspecified chronic kidney disease Category: Medical (2) Chronic kidney disease: Code(s): N18.9 - Chronic kidney disease, unspecified Category: Medical (3) Proteinuria: Code(s): R80.9 - Proteinuria, unspecified Category: Medical (4) (HFpEF) heart failure with preserved ejection fraction: Code(s): I50.30 - Unspecified diastolic (congestive) heart failure Category: Medical (5) Coronary artery disease: Code(s): I25.10 - Atherosclerotic heart disease of [place] coronary artery without angina pectoris Category: Medical Plan Chronic kidney disease stage IIIb : secondary to - no family history of CKD, no history of renal stones in the past, NSAID use. - creatinine 1.56 , GFR 46, HbA1c 6.9 - will get urine microalbumin creatinine ratio: UPCR: - Urinalysis shows 1+ protein, 6-10 WBC, no RBC - no renal imaging - avoid nephrotoxic medications not limited to NSAIDs, contrast etc. - importance of LPD protein about 0.6mg/kg/day, benefits of plant based diet, weight loss, adequate blood pressure control, stop smoking well explained to patient. - loosing weight about 15-20lbs since toe amputation in December from [facility]. Offered Mounjaro but as she is loosing weight on her own, continue with same. Advised her how to cut down o - will get hepatitis panel, HIV, SIDNEY, ANCA, complements, SPEP, UPEP, serum free light chains, PLA2R Hypertension: - target blood pressures less than 130/90 mm Hg - continue losartan 100mg and atenolol 50mg. - if the patient gets dizzy or orthostatic hypotension caused her to cut down the losartan to 50 mg Mineral bone disease: - calcium 9.8, Vitamin D2 19 - will get PTH levels We will see her back in the clinics in 3 months Total time spent is about 40 minutes, 10 minutes in chart review, 20 minutes in patient encounter and 10 minutes in documentation Orders: Orders Hepatitis B,C Profile Today E11.22 - Type 2 diabetes mellitus with diabetic chronic kidney disease, I12.9 - Hypertensive chronic kidney disease with stage 1 through stage 4 chronic kidney disease, or unspecified chronic kidney disease, N18.9 - Chronic kidney disease, unspecified, R80.9 - Proteinuria, unspecified SIDNEY Reflex Titer and Pattern Today E11.22 - Type 2 diabetes mellitus with diabetic chronic kidney disease, I12.9 - Hypertensive chronic kidney disease with stage 1 through stage 4 chronic kidney disease, or unspecified chronic kidney disease, N18.9 - Chronic kidney disease, unspecified, R80.9 - Proteinuria, unspecified Complement C4 Today E11. - Type 2 diabetes mellitus with diabetic chronic kidney disease, I12.9 - Hypertensive chronic kidney disease with stage 1 through stage 4 chronic kidney disease, or unspecified chronic kidney disease, N18.9 - Chronic kidney disease, unspecified, R80.9 - Proteinuria, unspecified Protein Electrophoresis, Serum Today E11. - Type 2 diabetes mellitus with diabetic chronic kidney disease, I12.9 - Hypertensive chronic kidney disease with stage 1 through stage 4 chronic kidney disease, or unspecified chronic kidney disease, N18.9 - Chronic kidney disease, unspecified, R80.9 - Proteinuria, unspecified ANCA Vasculitides Today E11. - Type 2 diabetes mellitus with diabetic chronic kidney disease, I12.9 - Hypertensive chronic kidney disease with stage 1 through stage 4 chronic kidney disease, or unspecified chronic kidney disease, N18.9 - Chronic kidney disease, unspecified, R80.9 - Proteinuria, unspecified Microalbumin, Random (w Creat) Today E11. - Type 2 diabetes mellitus with diabetic chronic kidney disease, I12.9 - Hypertensive chronic kidney disease with stage 1 through stage 4 chronic kidney disease, or unspecified chronic kidney disease, N18.9 - Chronic kidney disease, unspecified, R80.9 - Proteinuria, unspecified Total Protein Urine Random Today . - Type 2 diabetes mellitus with diabetic chronic kidney disease, I12.9 - Hypertensive chronic kidney disease with stage 1 through stage 4 chronic kidney disease, or unspecified chronic kidney disease, N18.9 - Chronic kidney disease, unspecified, R80.9 - Proteinuria, unspecified UA and rflx microscopic 3 Months E11. - Type 2 diabetes mellitus with diabetic chronic kidney disease, I12.9 - Hypertensive chronic kidney disease with stage 1 through stage 4 chronic kidney disease, or unspecified chronic kidney disease, R80.9 - Proteinuria, unspecified HIV Ab/Ag Today E11. - Type 2 diabetes mellitus with diabetic chronic kidney disease, I12.9 - Hypertensive chronic kidney disease with stage 1 through stage 4 chronic kidney disease, or unspecified chronic kidney disease, N18.9 - Chronic kidney disease, unspecified, R80.9 - Proteinuria, unspecified Complement C3 Today E11. - Type 2 diabetes mellitus with diabetic chronic kidney disease, I12.9 - Hypertensive chronic kidney disease with stage 1 through stage 4 chronic kidney disease, or unspecified chronic kidney disease, N18.9 - Chronic kidney disease, unspecified, R80.9 - Proteinuria, unspecified Protein Electrophoresis,Ran Ur Today . - Type 2 diabetes mellitus with diabetic chronic kidney disease, I12.9 - Hypertensive chronic kidney disease with stage 1 through stage 4 chronic kidney disease, or unspecified chronic kidney disease, N18.9 - Chronic kidney disease, unspecified, R80.9 - Pro teinuria, unspecified Bier/Lambda Light Chain Serum Today E11. - Type 2 diabetes mellitus with diabetic chronic kidney disease, I12.9 - Hypertensive chronic kidney disease with stage 1 through stage 4 chronic kidney disease, or unspecified chronic kidney disease, N18.9 - Chronic kidney disease, unspecified, R80.9 - Proteinuria, unspecified UA and rflx microscopic Today . - Type 2 diabetes mellitus with diabetic chronic kidney disease, I12.9 - Hypertensive chronic kidney disease with stage 1 through stage 4 chronic kidney disease, or unspecified chronic kidney disease, N18.9 - Chronic kidney disease, unspecified, R80.9 - Proteinuria, unspecified Phospholipase A2 Receptor Pnl Today - Type 2 diabetes mellitus with diabetic chronic kidney disease, I12.9 - Hypertensive chronic kidney disease with stage 1 through stage 4 chronic kidney disease, or unspecified chronic kidney disease, N18.9 - Chronic kidney disease, unspecified, R80.9 - Proteinuria, unspecified Basic Metabolic Panel 3 Months E11. - Type 2 diabetes mellitus with diabetic chronic kidney disease, I12.9 - Hypertensive chronic kidney disease with stage 1 through stage 4 chronic kidney disease, or unspecified chronic kidney disease, R80.9 - Proteinuria, unspecified Microalbumin, Random (w Creat) 3 Months E11. - Type 2 diabetes mellitus with diabetic chronic kidney disease, I12.9 - Hypertensive chronic kidney disease with stage 1 through stage 4 chronic kidney disease, or unspecified chronic kidney disease, R80.9 - Proteinuria, unspecified Total Protein Urine Random 3 Months E11. - Type 2 diabetes mellitus with diabetic chronic kidney disease, I12.9 - Hypertensive chronic kidney disease with stage 1 through stage 4 chronic kidney disease, or unspecified chronic kidney disease, R80.9 - Proteinuria, unspecified Coding Level of Care Code New Pt Level 4 (41602) Diagnoses Hypertension associated with chronic kidney disease due to type 2 diabetes mellitus E11.22; I12.9 Chronic kidney disease N18.9 Proteinuria R80.9 (HFpEF) heart failure with preserved ejection fraction I50.30 Coronary artery disease I25.10
[2025-02-12 11:13] VITALS: BP 102/70
== END 2025-02-12 11:57 | disposition home or self-care (01) ==
LOC: HO.HKAS 11:08
PROVIDERS: PCP Student in an Organized Health Care Education/Training Program; Visit Provider Internal Medicine Critical Care Medicine
DX: E11.22 Type 2 diabetes mellitus with diabetic chronic kidney disease (principal); I12.9 Hypertensive chronic kidney disease with stage 1 through stage 4 chronic kidney disease, or unspecified chronic kidney disease; N18.9 Chronic kidney disease, unspecified; R80.9 Proteinuria, unspecified; I50.30 Unspecified diastolic (congestive) heart failure; I25.10 Atherosclerotic heart disease of native coronary artery without angina pectoris
CPT/HCPCS: 99204

== ENCOUNTER → 2025-02-12 11:07 | Outpatient (BNVA) | payer MEDICARE, SELFPAY | LOC: CF 13:14 | PROVIDERS: PCP Student in an Organized Health Care Education/Training Program; Visit Provider Internal Medicine Critical Care Medicine | DX: E11.22 Type 2 diabetes mellitus with diabetic chronic kidney disease (principal); R80.9 Proteinuria, unspecified; N18.32 Chronic kidney disease, stage 3b; I25.10 Atherosclerotic heart disease of native coronary artery without angina pectoris; I50.30 Unspecified diastolic (congestive) heart failure | CPT/HCPCS: 99202 ==

== ENCOUNTER 2025-02-16 09:11 | Outpatient (REF) | payer MEDICARE, SELFPAY ==
[2025-02-16 13:15] LABS: Appearance Urine Clear; Glucose Urine UA Negative (Negative); PH 5.0 (5.0-9.0); Specific Gravity - Urine 1.020 (1.005-1.025); UMIC TRIGGER UACC YES
[2025-02-16 13:16] LABS: Appearance Urine Cloudy; Glucose Urine UA Negative (Negative); PH 5.0 (5.0-9.0); Specific Gravity - Urine 1.020 (1.005-1.025); UMIC TRIGGER UA YES
[2025-02-16 13:19] LABS: UACC Culture Trigger YES
[2025-02-16 14:38] LABS: Microalbum/Creatinine Ratio Ur 165.6 ug/mg cr (<30); Total Protein Urine Random 36 mg/dL (<12)
[2025-02-17 08:35] LABS: HBS Num1 0.00 mIU/mL (0-7.99); HBc Num1 0.20 S/CO (0.00-0.79); HBsAGNum1 0.51 S/CO (0.00-0.99); HIV Num 1 0.05 S/CO (0.00-0.99); Hepatitis B Surface Antigen Negative (Negative); ~HepC Num1 0.23 S/CO (0.00-0.79); ~Hepatitis B Surface Antibody NONREACTIVE (Nonreactive); ~Hepatitis C Antibody Nonreactive (Nonreactive)
[2025-02-19 13:59] LABS: Anti Nuclear Antibody Screen NEGATIVE (NEGATIVE)
[2025-02-20 10:34] LABS: PEU-Protein Creat Ratio Rand 0.381 (0.024-0.184); PEU-Rand. Prot/Creat Ratio 381 mg/g creat (24-184); PEU-Random Ur. Gamma Globulin 11 %; PEU-Random Urine A1 Globulin 7 %; PEU-Random Urine A2 Globulin 8 %; PEU-Random Urine Albumin 63 %; PEU-Random Urine Beta Globulin 12 %; PEU-Random Urine Creatinine 118 mg/dL (20-275); PEU-Random Urine Protein 45 mg/dL (5-24)
[2025-02-20 15:57] LABS: Kappa, Serum 269 mg/dL (176-443); Kappa/Lambda Ratio, Serum 1.86 (1.29-2.55); Lambda, Serum 145 mg/dL (91-240)
[2025-02-20 20:17] LABS: Proteinase 3 PR3 Antibodies <1.0 AI
[2025-02-24 21:33] LABS: Phospholipase A2 IgG ELISA <4 RU/mL; Phospholipase A2 IgG IFA NEGATIVE (NEGATIVE)
[2025-02-26 11:54] LABS: Prot Elec - Albumin 3.6 g/dL (3.8-4.8); Prot Elec - Alpha1 0.3 g/dL (0.2-0.3); Prot Elec - Alpha2 0.7 g/dL (0.5-0.9); Prot Elec - Beta 1 0.5 g/dL (0.4-0.6); Prot Elec - Beta 2 0.3 g/dL (0.2-0.5); Prot Elec - Gamma 1.0 g/dL (0.8-1.7); Prot Elec - Total Protein 6.3 g/dL (6.1-8.1)
== END 2025-02-16 09:12 | disposition home or self-care (01) ==
LOC: HO.HKASLDS 09:11
PROVIDERS: Internal Medicine Critical Care Medicine; PCP Student in an Organized Health Care Education/Training Program; Visit Provider Student in an Organized Health Care Education/Training Program
DX: E11.22 Type 2 diabetes mellitus with diabetic chronic kidney disease (principal); I12.9 Hypertensive chronic kidney disease with stage 1 through stage 4 chronic kidney disease, or unspecified chronic kidney disease; N18.9 Chronic kidney disease, unspecified; D69.6 Thrombocytopenia, unspecified; E11.621 Type 2 diabetes mellitus with foot ulcer; L97.519 Non-pressure chronic ulcer of other part of right foot with unspecified severity; R74.8 Abnormal levels of other serum enzymes; I48.91 Unspecified atrial fibrillation; I49.5 Sick sinus syndrome; E11.51 Type 2 diabetes mellitus with diabetic peripheral angiopathy without gangrene; E78.5 Hyperlipidemia, unspecified; N39.0 Urinary tract infection, site not specified; Z79.01 Long term (current) use of anticoagulants; Z28.89 Immunization not carried out for other reason; E53.8 Deficiency of other specified B group vitamins
CPT/HCPCS: 11042; 81001; 81003; 82043; 82570; 83520; 83883; 84156; 84165; 84166; 86021; 86038; 86160; 86255; 86704; 86706; 86803; 87086; 87088; 87186; 87340; 87389; 99212

== ENCOUNTER 2025-02-16 09:11 | Outpatient (AMB) | payer MEDICARE, SELFPAY ==
--- NOTE | 2025-02-16 10:11 | A.OFFVIS_ITS ---
Intake Visit Reasons: fu rt toe open wound Intake Note: Ana M is a 84 year old female who presents today for a follow up on her right toe open wound. At her last visit her wound was debrided and dressed with Xeroform, 4 x 4 gauze, Britni, and a non-compressive Jd bandage. Patient states she has been doing well. Healing went well. No pain in the area. No changes to her medications. Nursing only coming once a week to change the wound bandages and provider wanted more frequent changing. Gave number to change the order [phone]. Allergies empagliflozin (From Futon) Allergy (Verified 02/16/25 10:15) sores HPI HPI fu rt toe open wound: Details: 84-year-old female with past medical history of diabetes mellitus type 2, peripheral artery disease status post angioplasty right lower extremity, on warfarin, returns for Two week follow up ofright foot wound. Her visiting nurse is now only coming once a week. She denies any new complications. patient states that her toe wound has healed and is no longer covering it. She does endorse a recent fall where she injured her left thigh. She saw her PCP afterwards. She notes improvement, only having pain when getting up from sitting however still persistent. History: The patient states that she moved from [place] in December after a right 5th toe amputation approximately 3 weeks ago. She stayed in the hospital for approximately 1 week and then was in a subacute rehab facility for almost 2 weeks. She was given an oral antibiotic after discharge, which she has now completed. She states she has had the right foot ulcer chronically for several years which eventually had become acutely infected and required amputation. Today, the patient denies any pain to her lower extremities. She does endorse numbness her feet. She denies nausea vomiting fever chills shortness of breath or chest pain. She is unsure of her last A1c, however reports it to be typically under 10%. [facility] Medical History (Updated 02/16/25 @ 11:31 by Bertin Caldwell DPM) Elevated liver enzymes Amputation of fifth toe, right, traumatic Chronic kidney disease Elevated BP without diagnosis of hypertension Hypertension associated with chronic kidney disease due to type 2 diabetes mellitus Hyperlipidemia Atrial fibrillation Pulmonary hypertension Coronary artery disease Sick sinus syndrome History of tuberculosis Pacemaker Osteomyelitis Lymphedema Sleep apnea (HFpEF) heart failure with preserved ejection fraction Diabetes mellitus type 2 with complications Surgical History History of lung surgery S/P foot surgery Family History Father Stomach cancer Mother No problems noted. Social History Housing: House Alcohol intake: current Alcohol intake frequency: does not drink Patient Tobacco Use Status: Never used Tobacco service: No Current occupational status: retired Cognitive needs: Yes Hearing needs: No Vision needs: Yes (reading glasses) Review of Systems Const All systems reviewed & are unremarkable except as noted in HPI and below Physical Exam Extrem Other: *Bilateral Lower Extremity Focused Diabetic Foot Exam Vascular: DP/PT 1/4 right foot, CFT<3s to digits, TG warm to cool, no pedal edema, pedal hair absent Derm: Status post right foot partial 5th ray amputation 2.5 cm x 1.4 cm x 0.4cm granular wound along the central aspect of the 5th metatarsal incision. No drainage erythema or clinical signs of infection. No deep probing or exposed tendon/bone. 0.2 x 0.2 cm granular wound of the right dorsal medial aspect of the 2nd digit nearly healed. Nails: Elongated, thickened, dystrophic, discolored toenails x 10 with multiple calluses Discolored bilateral lower extremities with hemosiderin deposit. Dry scaling bilateral feet. Multiple calluses over and in between digits. Neuro: Protective sensation grossly diminished to bilateral lower extremities Msk: Status post right foot partial 5th ray amputation. No pain on palpation. Footwear Assessment: Shoes inspected; appropriate fit, no excessive wear, or foreign objects noted. Office Procedures AMB Debridement/Avulsion Podia Details: AMB Debridement/Avulsion Podia Details: Procedure: Sharp excisional debridement Depth: Subcutaneous layer Indication: Right diabetic foot ulcer Anesthesia: Lidocaine jelly 2% Description: The site was prepped using alcohol/cleanser. A curette was used to perform a sharp excisional wound debridement of the lesion to the level of subcutaneous tissue. The lesion measured 2.5 cm by 1.4 cm at the end of debridement. Dressings: Steri-strips, xeroform, 4 x 4 gauze, Britni. Tolerance: Patient tolerated procedure well, no immediate complications. [id number] of skin tissue Procedure code (CPT) selection complete Assessment & Plan Assessment & Plan (1) Ulcer of right foot due to type 2 diabetes mellitus: Code(s): E11.621 - Type 2 diabetes mellitus with foot ulcer; L97.519 - Non-pressure chronic ulcer of other part of right foot with unspecified severity Category: Medical Plan: * As per patient, she had negative margins for osteomyelitis upon amputation. She also completed her postoperative antibiotic course. At this time there are no clinical signs of infection, there will be no further workup for her 5th digit osteomyelitis which underwent surgical resection. * The right foot wound was excisionally debrided using a curette. All wound measurements increased by 0.1 cm. The wound was dressed using Xeroform, 4 x 4 gauze, Britni, and a non-compressive Jd bandage. * We will send a new referral for visiting nurses see the patient at least twice a week. Continue daily dressing changes using Steri-Strips, mupirocin ointment, Xeroform and 4 x 4 gauze and Britni secured with tape. * Continue mupirocin ointment * Follow up in 2 weeks. patient may require wound debridement and graft application * Patient was instructed to present earlier if she has any new worsening signs of infection to her feet. (2) Peripheral artery disease: Code(s): I73.9 - Peripheral vascular disease, unspecified Category: Medical Plan: * Patient states she had a angioplasty to right lower extremity. She is not sure if she had any stents placed or the extent of her procedure. She was recommended by her previous vascular surgeon to find a new vascular surgeon here in [place] once she moves back. * Pending appointment with Dr. Lux vascular surgery. * Pending Arterial Duplex (3) Xerosis cutis: Code(s): L85.3 - Xerosis cutis Category: Medical Plan: * Continue Amlactin ointment Orders: Orders AMB Debridement/Avulsion Podiatry Today E11.621 - Type 2 diabetes mellitus with foot ulcer, L97.519 - Non-pressure chronic ulcer of other part of right foot with unspecified severity Medications: Changed 2 From [Wound care instructions] Right foot wound care instructions: 1. Remove dressings. Cleansed with wound cleanser or saline. 2. Applied mupirocin ointment 3. Apply 4 x 4 gauze and Britni, secure with tape. No compression. 1 ea 0RF diabetic foot ulcer E11.621 - Type 2 diabetes mellitus with foot ulcer, L97.519 - Non-pressure chronic ulcer of other part of right foot with unspecified severity To [Wound care instructions] Right foot wound care instructions: 1. Remove dressings. Cleansed with wound cleanser or saline. 2. Apply steri-strips 3. Apply mupirocin ointment 4. Apply 4 x 4 gauze and Britni, secure with tape. No compression. 1 ea 0RF diabetic foot ulcer E11.621 - Type 2 diabetes mellitus with foot ulcer, L97.519 - Non-pressure chronic ulcer of other part of right foot with unspecified severity Coding Level of Care Code Procedure Only Diagnoses Ulcer of right foot due to type 2 diabetes mellitus E11.621; L97.519 Peripheral artery disease I73.9 Xerosis cutis L85.3 CPT Codes Skin Debridement - CPT: 70948-Xgeogrdhwib of skin tissue ([id number]) Time Spent (min) 10
== END 2025-02-16 10:25 | disposition home or self-care (01) ==
LOC: HO.HPODS 09:12
PROVIDERS: PCP Student in an Organized Health Care Education/Training Program; Visit Provider Student in an Organized Health Care Education/Training Program
DX: E11.621 Type 2 diabetes mellitus with foot ulcer (principal); L97.519 Non-pressure chronic ulcer of other part of right foot with unspecified severity; I73.9 Peripheral vascular disease, unspecified; L85.3 Xerosis cutis
CPT/HCPCS: 11042

== ENCOUNTER 2025-02-16 09:11 | Outpatient (AMB) | payer MEDICARE, SELFPAY ==
--- OUTSIDE RECORDS SUMMARY | 2020-06-27 09:00 | XMS_ITS | Continuity of Care Document ---
Author Organization [facility] Address [address] [place] [address] Phone Care Team Providers Care Mold Setter Name Role Phone Olga Srivastava Unavailable Unavailable Allergies, Adverse Reactions, Alerts Substance Reaction Status Criticality METHYLPREDNISOLONE ACETATE HivesHivesShortness Of [place] th Active No Information Medications Medication Instructions Dosage Effective Dates (start - stop) Status Comments tramadol 50 mg tablet take 0.5-1 tablet by oral route every 6 hours as needed. acute pain exemption - Active [place] 5 mg-325 mg tablet take 1 tablet [...] Copied on Encounter Office/outpa tient visit,est, mod [facility], [address], [place], [place], [address], [place] tel:[phone] [facility] 101 lumbar spine pain (chief complaint) Neurogenic claudicationS acroiliac joint dysfunctionLu mbar disc disease with radiculopathy Apr-0 - 1 Horace Espinoza. [address], [place], [place], [address] , [place]. [phone] Referring Provider: Olga SANCHEZ, [address], [place], [address] . tel:[phone] [facility], [address], [place], [place], [address], [place] tel:[phone] [facility] 204 No Information May- 1 Eduard Wen. [address], [place], [place], [address] , [place]. tel: [phone] [facility], [address], [place], [place], [address], [place] tel:[phone] [place] [facility] [address] Neurogenic claudication May- 1 Prabhjot Hastings. [address], [place], [place], [address] , [place]. [phone] Referring Provider: Venkata Rick MD, [address], [place], [address] . tel:[phone] Office/outpa tient visit,est, mod [facility], [address], [place], [place], [address], [place] tel:[phone] [place] [address] lumbar spine pain (chief complaint) Neurogenic claudicationS acroiliac joint dysfunction 1 Prabhjot Hastings. [address], [place], [place], [address] , [place]. tel:[phone] Referring Provider: Venkata Rick MD, [address], [place], [address] . tel:[phone] [facility], [address], [place], [place], [address], [place] tel:[phone] [facility] [address] Lumbar disc disease with radiculopathy 0- 0 Prabhjot Hastings. [address], [place], [place], [address] , [place]. tel:[phone] Referring Provider: Venkata Rick MD, [address], [place], [address] . tel:[phone] [facility], [address], [place], [place], [address], [place] tel:[phone] [place] [address] Lumbar disc disease with radiculopathy 0 Kenny Avalos. [address], [place], [place], [address] , [place]. tel:[phone] Referring Provider: Venkata Rick MD, [address], [place], [address] . tel:[phone] Office/outpa tient visit,est, mod [facility], [address], [place], [place], [address], [place] tel:[phone] [facility] [address] lumbar spine pain (chief complaint) Body mass index (BMI) 33.0-33.9, adultNeurogen ic claudicationS acroiliac joint dysfunction 0 0 Prabhjot Hastings. [address], [place], [place], [address] , [place]. tel:[phone] Referring Provider: Venkata Rick MD, [address], [place], [address] . tel:[phone] [facility], [address], [place], [place], [address], [place] tel:[phone] [facility] [address] Spondylosis of lumbar region without myelopathy or radiculopathy 0 Prabhjot Hastings. [address], [place], [place], [address] , [place]. tel:[phone] Referring Provider: Venkata Rick MD, [address], [place], [address] . tel:[phone] [facility], [address], [place], [place], [address], [place] tel:[phone] [facility] [address] Spondylosis of lumbar region without myelopathy or radiculopathy 0 Prabhjot Hastings. [address], [place], [place], [address] , [place]. tel:[phone] Referring Provider: Venkata Rick MD, [address], [place], [address] . tel:[phone] [facility], [address], [place], [place], [address], [place] tel:[phone] [facility] [address] Spondylosis of lumbar region without myelopathy or radiculopathy 0 Prabhjot Hastings. [address], [place], [place], [address] , [place]. tel: [phone] Referring Provider: Venkata Rick MD, [address], [place], [address] . tel:[phone] [facility], [address], [place], [place], [address], [place] tel:[phone] [facility] [address] Spondylosis of lumbar region without myelopathy or radiculopathy 9 Prabhjot Hastings. [address], [place], [place], [address] , [place]. tel: [phone] Referring Provider: Venkata Rick MD, [address], [place], [address] . tel:[phone] Office/outpa tient visit,est, mod [facility], [address], [place], [place], [address], [place] tel:[phone] [facility] [address] lumbar spine pain (chief complaint) Body mass index (BMI) 33.0-33.9, adultSpondylo sis of lumbar region without myelopathy or radiculopathy Neurogenic claudication 9 Prabhjot Hastings. [address], [place], [place], [address] , [place]. tel:[phone] Referring Provider: Venkata Rick MD, [address], [place], [address] . tel:[phone] [facility], [address], [place], [place], [address], [place] tel:[phone] [facility] [address] Spondylosis of lumbar region without myelopathy or radiculopathy 9 Prabhjot Hastings. [address], [place], [place], [address] , [place]. [phone] Referring Provider: Venkata Rick MD, [address], [place], [address] . tel:[phone] [facility], [address], [place], [place], [address], [place] tel:[phone] [place] [address] Spondylosis of lumbar region without myelopathy or radiculopathy 9 Prabhjot Hastings. [address], [place], [place], [address] , [place]. tel:[phone] Referring Provider: Venkata Rick MD, [address], [place], [address] . tel:[phone] Office/outpa tient visit,est, mod [facility], [address], [place], [place], [address], [place] tel:[phone] [facility] [address] lumbar spine pain (chief complaint) Body mass index (BMI) 33.0-33.9, adultSpondylo sis of lumbar region without myelopathy or radiculopathy Neurogenic claudication 9 Prabhjot Hastings. [address], [place], [place], [address] , [place]. tel:[phone] Referring Provider: Venkata Rick MD, [address], [place], [address] . tel:[phone] [facility], [address], [place], [place], [address], [place] tel:[phone] [place] [facility] [address] Spondylosis of lumbar region without myelopathy or radiculopathy 9 Prabhjot Hastings. [address], [place], [place], [address] , [place]. tel:[phone] Referring Provider: Venkata Rick MD, [address], [place], [address] . tel:[phone] Office/outpa tient visit,[facility], [address], [place], [place], [address], [place] tel:[phone] [facility] 204 lumbar spine pain (chief complaint) Body mass index (BMI) 33.0-33.9, adultSpondylo sis of lumbar region without myelopathy or radiculopathy Neurogenic claudication 9 Prabhjot Hastings. [address], [place], [place], [address] , [place]. tel:[phone] Referring Provider: Chuy Ogden MD H, [address], [place], [address] . tel:[phone] Office/outpa tient visit,[facility], [address], [place], [place], [address], [place] tel:[phone] [facility] 201 lumbar spine (chief complaint) Body mass index (BMI) 33.0-33.9, adultLumbar painLumbar disc disease with radiculopathy 9 Alin Vera . [address], [place], [place], [address] , [place]. tel:[phone] Referring Provider: Chuy Ogden MD H, [address], [place], [address] . tel:[phone] Office/outpa tient visit,[facility], [address], [place], [place], [address], [place] tel:[phone] [facility] 201 right knee pain (chief complaint) Closed nondisplaced fracture of right patella, unspecified fracture morphology, initial encounter 8 Alin Vera . [address], [place], [place], [address] , [place]. tel: [phone] Referring Provider: Chuy Ogden MD H, [address], [place], [address] . tel:[phone] Office/outpa tient visit,est, [facility], [address], [place], [place], [address], [place] tel:[phone] [facility] knee (chief complaint) Contusion of right knee, subsequent encounter 6 Alin Vera . [address], [place], [place], [address] , [place]. tel: [phone] Referring Provider: Chuy Granados, [address], [place], [address] . tel:[phone] [facility], [address], [place], [place], [address], [place] tel:[phone] [facility] hip (chief complaint) hip (chief complaint) Contusion of right knee, subsequent encounter 6 Lo Causey. [address], [place], [place], [address] , [place]. tel: [phone] Referring Provider: Chuy Ogden MD H, [address], [place], [address] . tel:[phone] Office/outpa tient visit,est, [facility], [address], [place], [place], [address], [place] tel:[phone] [facility] right knee pain (chief complaint) right ankle pain (chief complaint) Contusion of right knee, subsequent encounterSpra in of right ankle, unspecified ligament, subsequent encounter 5 Alin Vera . [address], [place], [place], [address] , [place]. tel: [phone] Referring Provider: Chuy Granados, [address], [place], [address] . tel:[phone] Office/outpa tient visit,[facility], [facility], [address], [place], [place], [address], [place] tel:[phone] [facility] left hand fracture (chief complaint) Nondisplaced fracture of proximal phalanx of left little finger with routine healing, subsequent encounter 5 Nino JIMENEZ Check. [address], [place], [place], [address] , [place]. tel: [phone] Referring Provider: Jerry Clark, [address], [place], [address] . tel:[phone] Office/outpa tient visit,[facility], [facility], [address], [place], [place], [address], [place] tel:[phone] [facility] right foot pain (chief complaint) Sprain of right ankle, unspecified ligament, subsequent encounter 5 Alin Vera . [address], [place], [place], [address] , [place]. tel: [phone] Referring Provider: Chuy Ogden MD H, [address], [place], [address] . tel:[phone] Office/outpa tient visit,[facility], [facility], [address], [place], [place], [address], [place] tel:[phone] [facility] left hand small finger fracture (chief complaint) Finger pain, leftClosed displaced fracture of proximal phalanx of right little finger, initial encounter 5 Nino JIMENEZ Check. [address], [place], [place], [address] , [place]. tel: [phone] Referring Provider: Chuy Granados, [address], [place], [address] . tel:[phone] Office/outpa tient visit,est, [facility], [address], [place], [place], [address], [place] tel:[phone] [facility] right knee pain (chief complaint) right ankle pain (chief complaint) knee (chief complaint) Right knee painRight ankle painContusion of right knee, subsequent encounter 5 Alin Vera . [address], [place], [place], [address] , [place]. [phone] Referring Provider: Chuy Granados, [address], [place], [address] . tel:[phone] [facility], [address], [place], [place], [address], [place] tel:[phone] [facility] 400 Swelling of right lower extremity 5 Alin Vera . [address], [place], [place], [address] , [place]. [phone] Referring Provider: Minerva Clark, [address], [place], [address] . tel:[phone] Office/outpa tient visit,[facility], [facility], [address], [place], [place], [address], [place] tel:[phone] [facility] 400 right knee pain (chief complaint) left hand swelling (chief complaint) Right knee painLeft hand painPrimary osteoarthriti s of right kneeClosed nondisplaced fracture of right patella, unspecified fracture morphology, initial encounterFrac ture of proximal phalanx of digit of left hand 5 Lashonda Palma. [address], [place], [place], [address] , [place]. [phone] Referring Provider: Minerva Clark, [address], [place], [address] . tel:[phone] [facility], [address], [place], [place], [address], [place] tel:[phone] [facility] 400 right knee pain (chief complaint) Primary osteoarthriti s of right knee Dec- 5 Alin Vera . [address], [place], [place], [address] , [place]. tel:[phone] Referring Provider: Chuy Ogden MD H, [address], [place], [address] . tel:[phone] [facility], [address], [place], [place], [address], [place] tel:[phone] [place] [address] right knee pain (chief complaint) Primary osteoarthriti s of right knee 5 Alin Vera . [address], [place], [place], [address] , [place]. tel:[phone] Referring Provider: Chuy Ogden MD H, [address], [place], [address] . tel:[phone] [facility], [address], [place], [place], [address], [place] tel:[phone] [facility] 400 right knee pain (chief complaint) Primary osteoarthriti s of right knee 5 Alin Vera . [address], [place], [place], [address] , [place]. tel:[phone] Referring Provider: Chuy Ogden MD H, [address], [place], [address] . tel:[phone] Office/outpa tient visit,est, mod [facility], [address], [place], [place], [address], [place] tel:[phone] [facility] right knee pain (chief complaint) Degenerative joint disease of knee 5 Alin Vrea . [address], [place], [place], [address] , [place]. tel: [phone] Referring Provider: Chuy Ogden MD H, [address], [place], [address] . tel:[phone] Office/outpa tient visit,new, [facility], [address], [place], [place], [address], [place] tel:[phone] [facility] right knee pain (chief complaint) No Information 5 Alin Vera . [address], [place], [place], [address] , [place]. tel: [phone] Referring Provider: Chuy Ogden MD H, [address], [place], [address] . tel:[phone] [facility], [address], [place], [place], [address], [place] tel:[phone] [place] [address] No Information 5 Alin Vera . [address], [place], [place], [address] , . tel: [phone] Family History Family Member Type Diagnosis Age At Onset Father Problem (finding) Mother Problem (finding) Stomach Sister Problem (finding) malignant neop lasm of breast in first degree relative Mother Problem (finding) Payers Payer name Insurance type Covered green party ID Authoriza tion(s) MEDICARE MB [id number] AARP SUPPLEMENT CI [id number] Social History Type Description Quantity Date Captured [...] for the treatment of pain such as vwqf-wnb-qtejwfp medications, acupuncture, cognitive and physical therapy. The risk of taking prescribed opioid medications were discussed including but not limited to addiction, injury, overdose, and . The patient has been provided the approved [facility] educational pamphlet non-opioid alternatives if opioids were [...] for the treatment of pain such as fuyp-qwc-whivitr medications, acupuncture, cognitive and physical therapy. The risk of taking prescribed opioid medications were discussed including but not limited to addiction, injury, overdose, and . The patient has been provided the approved [facility] educational pamphlet non-opioid alternatives if opioids were [...] for the treatment of pain such as iunj-wlx-hvjzdit medications, acupuncture, cognitive and physical therapy. The risk of taking prescribed opioid medications were discussed including but not limited to addiction, injury, overdose, and . The patient has been provided the approved [facility] educational pamphlet non-opioid alternatives if opioids were [...] for the treatment of pain such as rlkr-vhl-clagdtg medications, acupuncture, cognitive and physical therapy. The risk of taking prescribed opioid medications were discussed including but not limited to addiction, injury, overdose, and . The patient has been provided the approved [facility] educational pamphlet non-opioid alternatives if opioids were [...] right ankle, unspecified ligament, subsequent encounter Recommend timers inspector use and the splint was adjusted to [...] the office by one of the physicians regulatory affairs assistant and placed in the immobilizer. 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 Has tried conservative measures rest, OTC NSAIDs [...]
[2025-02-16 10:15] VITALS: BP 132/72; PULSE 85; TEMP 36.6; O2SAT 95
--- NOTE | 2025-02-16 10:15 | MHC.PC.OV ---
Vital Signs 02/16/25 10:15 Height 5 ft 6 in BP 132/72 Blood Pressure Location Rt brachial Position Sitting Pulse 85 Pulse Source Pulse Oximeter Temp 97.8 F Temp Source Oral Pulse Oximetry (%) 95 Oxygen Delivery Method Room Air Intake Visit Reasons: 2 wk - lab review Special Agent Required: No Accompanied by: Daughter Allergies empagliflozin (From JardiLucky Ant) Allergy (Verified 02/16/25 10:15) sores Medication List - Last Reconciled 02/16/25 by Akash Desir MD ammonium lactate 12% (AmLactin) 1 appl topical DAILY atenolol 25 mg PO DAILY bumetanide 1 mg PO DAILY ergocalciferol (vitamin D2) 1,250 mcg PO QWEEK insulin lispro (Humalog KwikPen (U-100) Insulin) 8 units subcut TID losartan 25 mg PO DAILY mupirocin 2% (Centany) 1 appl topical DAILY nitrofurantoin macrocrystal 100 mg PO BID 5 days pantoprazole 40 mg PO DAILY polyethylene glycol 3350 17 grams PO BID potassium chloride ER (K-Tab) 20 mEq PO DAILY simvastatin 20 mg PO BEDTIME warfarin 5 mg PO 4XW warfarin 2.5 mg PO 3XW [Wound care instructions Right foot wound care instructions: 1. Remove dressings. Cleansed with wound cleanser or saline. 2. Apply steri-strips 3. Apply mupirocin ointment 4. Apply 4 x 4 gauze and Britni, secure with tape. No compression.] Tobacco use date assessed: 02/16/25 Fall risk assessment: 2 + Falls in past year Last assessed Fall Risk: 02/16/25 Dental Screening Dental Screen Date: 02/16/25 Did you have a dental visit in the last 12 months?: No Did you have a dental problem in the last 6 months where you did not have access to dental care?: No Was dental information given to patient?: No HPI HPI Comments History of Present Illness Details History of Present Illness The patient is an 84-year-old individual presenting for a follow-up visit for management of chronic conditions and review of recent lab results. Type 2 Diabetes Mellitus: The patient has a history of diabetes, with a hemoglobin A1c of 8.1% in December, which has since improved to 6.9% on the current regimen. Thrombocytopenia: The patient has a history of a chronically low platelet count, which was noted at the time of a previous discharge and has been persistent. The patient is asymptomatic from this condition. Chronic Kidney Disease: The patient has a diagnosis of chronic kidney disease and is followed by a inside sales supervisor who recently ordered a battery of labs. Delayed healing of foot wound: The patient has a foot wound that is not healing as quickly as expected, a concern raised by the helpdesk specialist. Long-term use of anticoagulants: The patient is on warfarin, and nursing services have been monitoring INR levels. A recent INR level was 2.2. Medications: - Warfarin for anticoagulation - Insulin for diabetes - Vitamin B12 supplements (advised to stop) Social History: - The patient lives at home with another individual whom the patient is taking care of. Diagnostic Results: - Labs: White blood cells, red blood cells, and hemoglobin are within normal levels. - Platelet count: Persistently low. - INR: 2.2. - Hemoglobin A1c: 6.9%, improved from 8.1% in December. - Liver enzymes: Slightly elevated. - Total proteins, cholesterol, triglycerides: All values are good. - Vitamin B12: Extremely high. - Vitamin D, folate, and thyroid levels: Normal. - Hepatitis B and C: Negative. - Urinalysis: Positive for infection. Past Medical History - Type 2 Diabetes Mellitus - Chronic Thrombocytopenia - Chronic Kidney Disease - History requiring chronic anticoagulation with warfarin Health Maintenance - The patient is under the care of a helpdesk specialist for a foot wound. - The patient has upcoming specialist appointments with cardiology and vascular. - A follow-up visit is scheduled in three months to re-evaluate labs. - The patient is followed by a inside sales supervisor for chronic kidney disease. ON LICENSE OF [facility] Medical History (Updated 02/16/25 @ 12:49 by Akash Desir MD) Current use of terminal makeup operator anticoagulation Thrombocytopenia Elevated liver enzymes Amputation of fifth toe, right, traumatic Chronic kidney disease Elevated BP without diagnosis of hypertension Hypertension associated with chronic kidney disease due to type 2 diabetes mellitus Hyperlipidemia Atrial fibrillation Pulmonary hypertension Coronary artery disease Sick sinus syndrome History of tuberculosis Pacemaker Osteomyelitis Lymphedema Sleep apnea (HFpEF) heart failure with preserved ejection fraction Diabetes mellitus type 2 with complications Surgical History History of lung surgery S/P foot surgery Family History Father Stomach cancer Mother No problems noted. Social History Housing: House Alcohol intake: current Alcohol intake frequency: does not drink Patient Tobacco Use Status: Never used Tobacco service: No Current occupational status: retired Cognitive needs: Yes Hearing needs: No Vision needs: Yes (reading glasses) Questionnaire PHQ-9 Over the last 2 weeks, how often have you been bothered by any of the following problems? 1. Little interest or pleasure in doing things: not at all 2. Feeling down, depressed, or hopeless: not at all 3. Trouble falling or staying asleep, or sleeping too much: not at all 4. Feeling tired or having little energy: not at all 5. Poor appetite or overeating: not at all 6. Feeling bad about yourself - or that you are a failure or have let yourself or your family down: not at all 7. Trouble concentrating on things, such as reading the newspaper or watching television: not at all 8. Moving or speaking so slowly that other people could have noticed. Or the opposite - being so fidgety or restless that you have been moving around a lot more than usual: not at all 9. Thoughts that you would be better off or of hurting yourself in some way: not at all Total score: 0 Source: Developed by Drs. Robert Romo, Codi Herman, Vahid Navarro and colleagues, with an educational na from [employer]. Thrive Questionnaire Date Thrive assessed: 02/16/25 I am a: Parent/Caregiver What is your living situation today?: I have a steady place to live Within the past 12 months, did the food you bought not last and you didn't have the money to get more?: Never true Within the past 12 months, did you worry whether your food would run out before you got money to buy more?: Never true Do you have trouble paying for medicines?: No Do you have trouble getting transportation to medical appointments?: No Do you have trouble paying your heating and electricity bill?: No Do you have trouble taking care of your child, family member or friend?: No Are you currently unemployed and looking for a job?: No Are you interested in more education?: No Please select the resources that you would like help with: Care for elder or disabled Currently or been in a relationship where the following occur: No concerns reported THRIVE Score: 0 AUDIT C Alcohol Use Questionnaire (AUDIT-C) 1. How often do you have a drink containing alcohol?: Never Total Score: 0 CHAD-7 AMB Questionnaire CHAD-7 Date CHAD - 7 assessed: 02/16/25 Feeling nervous, anxious, or on edge: 0 = Not at all Not being able to stop or control worryin = Not at all Worrying too much about different things: 0 = Not at all Trouble relaxin = Not at all Being so restless that it is hard to sit still: 0 = Not at all Becoming easily annoyed or irritable: 0 = Not at all Feeling afraid as if something awful might happen: 0 = Not at all Total CHAD-7 score (0-4 normal; 5-9 mild; 10-14 moderate; 15-21 severe): 0 Source: Developed by Drs. Robert Romo, Codi Herman, Vahid Navarro and colleagues, with an educational na from [employer]. Review of Systems Narrative Review of Systems - General: Denies any current questions or concerns. - Hematologic: Denies symptoms related to low platelets. - Genitourinary: Denies symptoms of a urinary tract infection. 10-point ROS reviewed and negative except as noted in HPI Physical exam (Primary Care) Vital Signs: Last Vital Signs Temp 97.8 F 02/16/25 10:15 Pulse 85 02/16/25 10:15 BP 132/72 02/16/25 10:15 Pulse Ox 95 02/16/25 10:15 Oxygen Delivery Method Room Air 02/16/25 10:15 Tobacco/Smoking Status: Tobacco use Status Tobacco use date assessed 02/16/25 02/16/25 10:19 Patient Tobacco Use Status Never used Tobacco 02/16/25 10:15 PHQ-9: PHQ-9 Score PHQ-9: Total score 0 02/16/25 10:34 Thrive Assessment: Date of Thrive Assessment Date Thrive assessed 02/16/25 02/16/25 10:19 Currently or been in a relationship where the following occur: No concerns reported Narrative Physical Exam General: Well-appearing, in no acute distress. Vital signs: Within normal limits. HEENT: Normocephalic, atraumatic. PERRLA, EOMI. Conjunctiva clear, sclera anicteric. Oropharynx clear, mucous membranes moist. TMs intact bilaterally. Neck: Supple, no lymphadenopathy, no thyromegaly, no JVD or carotid bruits. Cardiovascular: RRR, normal S1/S2, no murmurs, rubs, or gallops. Peripheral pulses 2+ and symmetric. No edema. Respiratory: Lungs clear to auscultation bilaterally, no wheezes, rales, or rhonchi. Normal effort. Abdomen: Soft, non-tender, non-distended. Normoactive bowel sounds. No hepatosplenomegaly, no masses. MSK: Full range of motion, no joint swelling or deformity. Normal gait. Skin: Warm, dry, intact. No rashes, lesions, or pallor. erythema sclay dry bruises noted Neuro: Alert and oriented x3. Cranial nerves II-XII intact. Strength 5/5 throughout. Sensation intact. Reflexes 2+ symmetric. wheelchair bound Psych: Appropriate mood and affect. Normal judgment and insight. Office Procedures Flu Questionnaire Does the patient have a severe egg allergy?: No Does the patient have severe life threatening allergies?: No Does the patient have a fever or illness today?: No Has the patient ever had Guillain-Trevor Syndrome?: No Has the patient ever had any past reaction to a flu shot?: No Immunizations Fluarix [id number] (PF) 45 mcg (15 mcg x 3)/0.5 mL IM syringe Performing Provider: Akash Desir MD [place] [facility] [facility] [place] [facility] Documented (not given) by: Candice Dillon CMA on 02/16/25 10:39 Reason Not Given: Received Previously Coding Level of Care Code Est Pt Level 3 (36162) Diagnoses Diabetes mellitus type 2 with complications E11.8 Ulcer of right foot due to type 2 diabetes mellitus E11.621; L97.519 Elevated liver enzymes R74.8 Chronic kidney disease N18.9 Atrial fibrillation I48.91 Sick sinus syndrome I49.5 Peripheral artery disease I73.9 Hyperlipidemia E78.5 Thrombocytopenia D69.6 Current use of terminal makeup operator anticoagulation Z79.01 Assessment & Plan Assessment & Plan (1) Diabetes mellitus type 2 with complications: Code(s): E11.8 - Type 2 diabetes mellitus with unspecified complications Category: Medical (2) Ulcer of right foot due to type 2 diabetes mellitus: Code(s): E11.621 - Type 2 diabetes mellitus with foot ulcer; L97.519 - Non-pressure chronic ulcer of other part of right foot with unspecified severity Category: Medical (3) Elevated liver enzymes: Code(s): R74.8 - Abnormal levels of other serum enzymes Category: Medical (4) Chronic kidney disease: Code(s): N18.9 - Chronic kidney disease, unspecified Category: Medical (5) Atrial fibrillation: Code(s): I48.91 - Unspecified atrial fibrillation Category: Medical (6) Sick sinus syndrome: Code(s): I49.5 - Sick sinus syndrome Category: Medical (7) Peripheral artery disease: Code(s): I73.9 - Peripheral vascular disease, unspecified Category: Medical (8) Hyperlipidemia: Code(s): E78.5 - Hyperlipidemia, unspecified Category: Medical (9) Thrombocytopenia: Code(s): D69.6 - Thrombocytopenia, unspecified Category: Medical (10) Current use of intermediate anticoagulation: Code(s): Z79.01 - [facility] (current) use of anticoagulants Category: Medical Plan Consent Patient was informed and verbally consented to the use of an ambient scribe for clinic note documentation during this visit. Plan 1. Type 2 Diabetes Mellitus - With the patient's hemoglobin A1c improving to 6.9%, the current medication regimen will be continued. - An endocrinology consultation is not necessary at this time, as management will continue with primary care. - Hemoglobin A1c will be repeated in three months to monitor progress and determine if any adjustments, such as lowering insulin, are needed. 2. Elevated Liver Enzymes - Due to slightly elevated liver enzymes, a baseline ultrasound of the liver will be obtained. - The order has been placed, and the imaging facility will contact the patient for scheduling; the procedure is not considered urgent. 3. Urinary Tract Infection - A urinalysis revealed an infection, which can present atypically in elderly patients. - A prescription for nitrofurantoin (Macrobid) will be provided, to be taken twice a day for five days. - The antibiotic does not interfere with the patient's other medications, including warfarin. 4. Thrombocytopenia - The platelet count remains chronically low, but is stable and the patient is asymptomatic. - No intervention is required at this time. 5. Hypervitaminosis B12 - The patient was advised to discontinue any vitamin B12 supplements due to extremely high levels found in the bloodwork. 6. Chronic Non-Healing Wound, Foot - The helpdesk specialist has expressed concern over the slow healing of the patient's foot wound. - To address this, the helpdesk specialist will place an order to increase the frequency of nursing visits for dressing changes to twice a week. - The helpdesk specialist is also working to expedite a vascular consultation, which is currently scheduled for April. 7. Chronic Kidney Disease - Continue to follow with the inside sales supervisor for management. Discussion Notes I reviewed the lab results with the patient, highlighting the significant improvement in the hemoglobin A1c from 8.1 to 6.9, and congratulated the patient on this progress. We will continue the current diabetes regimen and recheck in three months. I discussed the chronically low platelets, reassuring the patient that since the patient is asymptomatic, we do not need to be worried at this time. I also explained that the urinalysis showed a mild infection, and I am prescribing a five-day course of Macrobid, which will not interfere with the patient's warfarin. I informed the patient about the slightly elevated liver enzymes and the plan for a non-urgent baseline liver ultrasound, for which an order has been placed. We noted the very high Vitamin B12 level, and I advised the patient to stop taking any B12 supplements. We also discussed the helpdesk specialist's concern about the slow-healing foot wound and the plan to increase nursing visits for dressing changes and expedite a vascular consultation. Patient Instructions - Take nitrofurantoin (Macrobid) as prescribed, one tablet two times a day for five days, to treat the urinary infection. - Continue your current diabetes medications and therapies. - If you are taking any Vitamin B12 supplements, you can stop taking them for now. - An order for an ultrasound of your liver has been put in, and they will call you to schedule it; this is not an emergency. - The visiting nurse will now come twice a week for your foot dressing changes. - Return for a follow-up visit in three months to review your labs. Medical Decision Making The patient is an 84-year-old individual with multiple chronic conditions who presented for a follow-up to review lab results. The patient's lab results show a significant improvement in glycemic control, with hemoglobin A1c decreasing from 8.1 to 6.9, which supports better healing potential. Given this improvement, the decision was made to continue the current diabetes regimen and re-evaluate in three months, negating the immediate need for an endocrinology consult. The patient's chronic asymptomatic thrombocytopenia is stable and requires no acute intervention. An asymptomatic urinary tract infection was found on urinalysis; given the patient's age and the atypical presentation of UTIs in this population, treatment with nitrofurantoin was initiated to prevent complications, with consideration that it does not interact with the patient's warfarin. Mildly elevated liver enzymes warrant further investigation to rule out underlying pathology, hence a non-urgent baseline liver ultrasound was ordered. I concur with the podiatry plan to increase the frequency of wound care and expedite a vascular consult for the patient's slow-healing foot wound, as poor perfusion is a likely contributing factor. Care remains coordinated with podiatry and nephrology. Total Time Statement 20 min Total time spent caring for the patient today includes pre-visit chart review, documentation, review of laboratory and diagnostic imaging results, medication reconciliation, medically necessary evaluation, counseling on diagnoses, care coordination, ordering appropriate tests and medications, review of tests performed by other providers, reporting test results to the patient, and communication with other healthcare providers. Orders: Orders Influenza [id number] Immunization Today Z23 - Encounter for immunization US abdomen limited Today R74.8 - Abnormal levels of other serum enzymes Medications: New nitrofurantoin macrocrystal must administer with a meal/food 100 mg PO BID 10 caps 0RF 5 days
== END 2025-02-16 10:47 | disposition home or self-care (01) ==
LOC: HO.HMCFMS 09:12
PROVIDERS: PCP Student in an Organized Health Care Education/Training Program; Visit Provider Student in an Organized Health Care Education/Training Program
DX: E11.8 Type 2 diabetes mellitus with unspecified complications (principal); E11.621 Type 2 diabetes mellitus with foot ulcer; L97.519 Non-pressure chronic ulcer of other part of right foot with unspecified severity; I48.91 Unspecified atrial fibrillation; I49.5 Sick sinus syndrome; R74.8 Abnormal levels of other serum enzymes; N18.9 Chronic kidney disease, unspecified; I73.9 Peripheral vascular disease, unspecified; E78.5 Hyperlipidemia, unspecified; D69.6 Thrombocytopenia, unspecified; Z79.01 Long term (current) use of anticoagulants; Z23 Encounter for immunization

== ENCOUNTER 2025-02-20 13:24 | Outpatient (REF) | payer MEDICARE, SELFPAY ==
--- NOTE | ~2025-02-20 | US_ITS ---
CLINICAL HISTORY: E11.621 - Type 2 diabetes mellitus with foot ulcer Arterial duplex ultrasound bilateral lower extremity Comparison: None provided Findings: Continuous, pulsatile flow with biphasic waveforms from common femoral through the posterior tibial and dorsalis pedis arteries on the right with the exception of monophasic waveform seen in the right popliteal artery. Patent left lower extremity. A monophasic waveform is seen within the left common femoral artery with aliasing. This could indicate focal stenosis. Biphasic waveform within the proximal and mid left SFA with a monophasic waveform seen within the distal left SFA. Patent popliteal artery with monophasic flow. The posterior tibial artery is not seen. Both the anterior tibial artery and dorsalis pedis artery demonstrate flow distally. Calcified plaque seen bilaterally. IMPRESSION: Patent bilateral lower extremity arterial systems. Monophasic waveform with aliasing within the common femoral artery suggests stenosis. Consider further characterization with catheter directed arteriogram or CTA. This document has been electronically signed by: Ila Shen MD on 02/21/2025 10:25:37
== END 2025-02-20 13:25 | disposition home or self-care (01) ==
LOC: HO.HMGCX 13:24
PROVIDERS: PCP Student in an Organized Health Care Education/Training Program; Visit Provider Student in an Organized Health Care Education/Training Program
DX: E11.621 Type 2 diabetes mellitus with foot ulcer (principal); E11.51 Type 2 diabetes mellitus with diabetic peripheral angiopathy without gangrene; L97.519 Non-pressure chronic ulcer of other part of right foot with unspecified severity
CPT/HCPCS: 93925

== ENCOUNTER → 2025-02-20 13:25 | Outpatient (BNV) | payer MEDICARE, SELFPAY | PROVIDERS: PCP Student in an Organized Health Care Education/Training Program; Visit Provider Radiology Diagnostic Radiology | DX: I70.211 Atherosclerosis of native arteries of extremities with intermittent claudication, right leg (principal); E11.621 Type 2 diabetes mellitus with foot ulcer | CPT/HCPCS: 93925 ==

== ENCOUNTER 2025-03-01 10:05 | Outpatient (AMB) | payer MEDICARE, SELFPAY ==
[2025-03-01 10:46] VITALS: BMI 37.1
--- NOTE | 2025-03-01 10:46 | MHC.OFFVIS ---
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 Pt has hx of Right 5th toe amp in [place] 01/01/25. Pt states still healing, VNA comes twice per week. Pt states ambulation is affected by a spinal issue. Pt states that she had a Right LE angiogram in [place] the same time as her amputation. 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 She underwent a right 5th toe ray amputation on January 01 while in [place]. The surgical wound from the amputation is still open and has been healing slowly over the past two months. A nurse visits her home twice a week to perform dressing changes. Prior to the amputation surgery, an angiogram was performed which reportedly showed good blood flow, and no intervention such as ballooning or stenting was done. The patient had an ultrasound last week which raised concern for slight blockages. She has a history of seeing a kidney doctor and had recent blood work performed about a week ago. [facility] Medical History Current use of shelter anticoagulation Thrombocytopenia Elevated liver enzymes Amputation of fifth toe, right, traumatic Chronic kidney disease Elevated BP without diagnosis of hypertension Hypertension associated with chronic kidney disease due to type 2 diabetes mellitus Hyperlipidemia Atrial fibrillation Pulmonary hypertension Coronary artery disease Sick sinus syndrome History of tuberculosis Pacemaker Osteomyelitis Lymphedema Sleep apnea (HFpEF) heart failure with preserved ejection fraction Diabetes mellitus type 2 with complications Surgical History History of lung surgery S/P foot surgery Family History Father Stomach cancer Mother No problems noted. Social History Housing: House Alcohol intake: current Alcohol intake frequency: does not drink Patient Tobacco Use Status: Never used Tobacco service: No Current occupational status: retired Cognitive needs: Yes Hearing needs: No Vision needs: Yes (reading glasses) Review of Systems Const All systems reviewed & are unremarkable except as noted in HPI and below Reports no additional complaints ENT Reports Normal hearing present Card Denies chest pain, Denies chest pain at rest, Denies chest pain with activity and Denies pedal edema Resp Denies cough GI Denies abdominal pain Musc Denies abnormal gait, Denies muscle cramps and Denies radiating pain into limb Skin/Breast Denies skin ulcer and Denies wounds Neuro Reports Normal hearing present and Denies abnormal gait Psych Reports no additional complaints Physical Exam Vital Signs: BMI result Body Mass Index 37.1 Const General: cooperative, healthy appearing and comfortable Orientation/consciousness: oriented to person, oriented to place and oriented to time HEENT Head: Yes normal to inspection Neck Neck: Yes normal visual inspection Carotids: no bruits Chest Chest palpation & inspection: normal inspection of the chest Resp Effort & Inspection: normal respiratory effort and able to speak in complete sentences Auscultation: clear to auscultation bilaterally, no crackles, no rales, no rhonchi and no wheezes Cardio Other: bilateral DP signals Rate: regular rate Rhythm: regular rhythm Heart sounds: S1 normal heart sound present and S2 normal heart sound present Bruits: no carotid bruits Peripheral pulses: Peripheral pulses 2+ throughout GI Inspection: Yes normal to inspection Skin Other: right lateral foot wound proximally 3 x 1 cm. Relatively reasonable granulation base. No significant drainage. Wounds: no wounds Hair: normal Neuro General: oriented to person, oriented to place and oriented to time Cranial nerves: Yes CN's II-XII intact bilaterally and Yes Normal hearing present Cognition (Neuro): normal cognition Motor exam (neuro): 5/5 motor strength present throughout Extrem Other: venous exam: No significant superficial varicosities or spider telangiectasias, minimal edema General: No clubbing, No cyanosis and No edema Psych Appearance: grossly normal Mental Status: mental status grossly normal Speech and movement: Normal speech and movement present Results Reviewed Results Reviewed: arterial ultrasound dated 02/20/2025 is concerning for common femoral artery disease. Written report and images were reviewed. Assessment & Plan Assessment & Plan (1) Peripheral artery disease: Code(s): I73.9 - Peripheral vascular disease, unspecified Category: Medical Plan: I discussed with the patient that the slow healing of her amputation wound, now over two months post-procedure, is concerning. I explained that to better evaluate her circulation, I am recommending a CT scan of her leg. I clarified that a CT scan is a more open machine compared to an MRI, addressing her concerns about claustrophobia. I informed her that the scan requires an injection of contrast dye and that we need to check her kidney function via blood work beforehand. We Need to check renal function testing as she does have a history of chronic renal insufficiency.. I explained that depending on the CT scan findings, treatment could involve a minimally invasive procedure like a balloon or stent, or potentially surgery to clean out plaque from an artery. She will follow up after the CT scan to review the results and decide on the best course of action. Thank you for allowing us to assist in her care. If there are any questions or concerns please do not hesitate to contact us. Orders: Orders Creatinine Today I73.9 - Peripheral vascular disease, unspecified Blood Urea Nitrogen Today I73.9 - Peripheral vascular disease, unspecified CT angio abd aorta runoff Today I73.9 - Peripheral vascular disease, unspecified Coding Level of Care Code New Pt Level 4 (39596) Complex visit Add On G2211 Diagnoses Peripheral artery disease I73.9
== END 2025-03-01 11:15 | disposition home or self-care (01) ==
LOC: HO.HVS 10:06
PROVIDERS: Visit Provider Surgery Vascular Surgery
DX: I73.9 Peripheral vascular disease, unspecified (principal)
CPT/HCPCS: 99204; G2211

== ENCOUNTER → 2025-03-01 10:05 | Outpatient (BNVA) | payer MEDICARE, SELFPAY | PROVIDERS: Visit Provider Surgery Vascular Surgery | DX: I73.9 Peripheral vascular disease, unspecified (principal) | CPT/HCPCS: 99202 ==

== ENCOUNTER 2025-03-05 09:24 | Outpatient (AMB) | payer MEDICARE, SELFPAY ==
--- NOTE | 2025-03-05 09:42 | A.OFFVIS_ITS ---
Vital Signs 03/05/25 10:03 Height 5 ft 6 in Weight 230 lb BMI 37.1 Intake Visit Reasons: fu rt toe open wound Intake Note: Ana M is a 84 year old female who presents to the office today for a 2 week follow up. At last visit he right foot wound was debrided and the wound was dressed. A referral was placed for visiting nurses 2x a week and pending Vascular surgeon appt. Pt states she has seen the vascular surgeon and the visiting nurses has started around the end of December. She denies experiencing pain her right foot and has seen some improvement in regards to her wound. Allergies empagliflozin (From [employer]) Allergy (Verified 03/05/25 10:04) sores HPI HPI fu rt toe open wound: Details: 84-year-old female with past medical history of diabetes mellitus type 2, peripheral artery disease status post angioplasty right lower extremity, on warfarin, returns for 2 week follow up ofright foot wound. She went to see vascular surgery who recommended a CT scan. Her visiting nurse is coming twice a week. Patient also endorses a new blister to her left big toe. No longer experiencing left thigh pain after doing physical therapy. History: The patient states that she moved from [place] in December after a right 5th toe amputation approximately 3 weeks ago. She stayed in the hospital for approximately 1 week and then was in a subacute rehab facility for almost 2 weeks. She was given an oral antibiotic after discharge, which she has now completed. She states she has had the right foot ulcer chronically for several years which eventually had become acutely infected and required amputation. Today, the patient denies any pain to her lower extremities. She does endorse numbness her feet. She denies nausea vomiting fever chills shortness of breath or chest pain. She is unsure of her last A1c, however reports it to be typically under 10%. [facility] Medical History Current use of nursing home anticoagulation Thrombocytopenia Elevated liver enzymes Amputation of fifth toe, right, traumatic Chronic kidney disease Elevated BP without diagnosis of hypertension Hypertension associated with chronic kidney disease due to type 2 diabetes mellitus Hyperlipidemia Atrial fibrillation Pulmonary hypertension Coronary artery disease Sick sinus syndrome History of tuberculosis Pacemaker Osteomyelitis Lymphedema Sleep apnea (HFpEF) heart failure with preserved ejection fraction Diabetes mellitus type 2 with complications Surgical History History of lung surgery S/P foot surgery Family History Father Stomach cancer Mother No problems noted. Social History Housing: House Alcohol intake: current Alcohol intake frequency: does not drink Patient Tobacco Use Status: Never used Tobacco service: No Current occupational status: retired Cognitive needs: Yes Hearing needs: No Vision needs: Yes (reading glasses) Review of Systems Const All systems reviewed & are unremarkable except as noted in HPI and below Physical Exam Vital Signs: BMI result Body Mass Index 37.1 Extrem Other: *Bilateral Lower Extremity Focused Diabetic Foot Exam Vascular: DP/PT 1/4 right foot, CFT<3s to digits, TG warm to cool, no pedal edema, pedal hair absent Derm: Status post right foot partial 5th ray amputation 2 cm x 0.7 cm x 0.4cm granular wound along the central aspect of the 5th metatarsal incision. No d rainage erythema or clinical signs of infection. No deep probing or exposed tendon/bone. Left medial distal hallux serous bullous lesion. Nails: Elongated, thickened, dystrophic, discolored toenails x 10 with multiple calluses Discolored bilateral lower extremities with hemosiderin deposit. Dry scaling bilateral feet. Multiple calluses over and in between digits. Neuro: Protective sensation grossly diminished to bilateral lower extremities Msk: Status post right foot partial 5th ray amputation. No pain on palpation. Footwear Assessment: Shoes inspected; appropriate fit, no excessive wear, or foreign objects noted. Office Procedures AMB Debridement/Avulsion Podia Details: Procedure: Sharp excisional debridement Depth: Subcutaneous layer Indication: Right diabetic foot ulcer Anesthesia: N/A Description: The site was prepped using alcohol/cleanser. A #15 Blade and a sharp curette was used to perform a sharp excisional wound debridement of the lesion to the level of subcutaneous tissue. The lesion measured 2.1 cm x 0.8 cm at the end of debridement. Dressings: Steri-strip, xeroform, 4 x 4 gauze, Britni. Tolerance: Patient tolerated procedure well, no immediate complications. Procedure: Nail debridement Location: 10 nails, bilateral feet Anesthesia: N/A Description: The affected toenails were cleansed with an antiseptic solution. Using sterile nail nippers and a rotary tasneem, dystrophic and mycotic nail material was carefully debrided and reduced in thickness. Care was taken to avoid trauma to the surrounding skin and nail bed. All debris was removed as tolerated. The area was inspected for signs of infection or ulceration. Patient tolerated the procedure well without complications. Tolerance: Patient tolerated procedure well, no immediate complications. Class B findings as per physical exam findings above. The patient has a diagnosis of diabetes mellitus and presents with elongated, thickened toenails. Due to underlying diabetic neuropathy and mild vascular disease findings, the patient is at increased risk for complications such as ulceration, infection, and difficulty with self-care. Debridement of elongated toenails is medically necessary to prevent development of pressure-related lesions, reduce risk of secondary infection, and maintain foot health in high- risk comorbidities. 16833-Dopzfukytft of Nail 6+ 47659-Yyruzacizhn of skin tissue Procedure code (CPT) selection complete Results Reviewed Results Reviewed: Arterial duplex 02/21/2025: IMPRESSION: Patent bilateral lower extremity arterial systems. Monophasic waveform with aliasing within the common femoral artery suggests stenosis. Assessment & Plan Assessment & Plan (1) Ulcer of right foot due to type 2 diabetes mellitus: Code(s): E11.621 - Type 2 diabetes mellitus with foot ulcer; L97.519 - Non-pressure chronic ulcer of other part of right foot with unspecified severity Category: Medical Plan: * The right foot wound was excisionally debrided using a curette. All wound measurements increased by 0.1 cm. The wound was dressed using Xeroform, 4 x 4 gauze, Britni, and a non-compressive Dj bandage. * Continue daily dressing changes using Steri-Strips, mupirocin ointment, Xeroform and 4 x 4 gauze and Britni secured with tape. * Discussed that patient may require wound debridement and graft application, pending vascular surgery clearance and possible intervention. * Follow up in 2 weeks. * Patient was instructed to present earlier if she has any new worsening signs o f infection to her feet. (2) Peripheral artery disease: Code(s): I73.9 - Peripheral vascular disease, unspecified Category: Medical Plan: * Pending CT-angio (3) Xerosis cutis: Code(s): L85.3 - Xerosis cutis Category: Medical Plan: * Continue Amlactin ointment Coding Level of Care Code Est Pt Level 3 (17499) Diagnoses Ulcer of right foot due to type 2 diabetes mellitus E11.621; L97.519 Peripheral artery disease I73.9 Xerosis cutis L85.3 CPT Codes Skin Debridement - CPT: 42700-Qnqekiprust of Nail 6+ ([id number]) Skin Debridement - CPT: 37658-Jkmeprwrnfv of skin tissue ([id number]) Time Spent (min) 15
[2025-03-05 10:03] VITALS: BMI 37.1
== END 2025-03-05 10:06 | disposition home or self-care (01) ==
LOC: HO.HPODS 09:25
PROVIDERS: PCP Student in an Organized Health Care Education/Training Program; Visit Provider Student in an Organized Health Care Education/Training Program
DX: E11.621 Type 2 diabetes mellitus with foot ulcer (principal); L97.519 Non-pressure chronic ulcer of other part of right foot with unspecified severity; I73.9 Peripheral vascular disease, unspecified; L85.3 Xerosis cutis; B35.1 Tinea unguium; L60.3 Nail dystrophy
CPT/HCPCS: 11042; 11721; 99213

== ENCOUNTER 2025-03-05 09:24 | Outpatient (REF) | payer MEDICARE, SELFPAY ==
[2025-03-05 14:17] LABS: Blood Urea Nitrogen 47 mg/dL (9-16); Estimated Glomerular Filt Rate 26
== END 2025-03-05 09:25 | disposition home or self-care (01) ==
LOC: HO.HKASLDS 09:24
PROVIDERS: Surgery Vascular Surgery; PCP Student in an Organized Health Care Education/Training Program; Visit Provider Student in an Organized Health Care Education/Training Program
DX: E11.621 Type 2 diabetes mellitus with foot ulcer (principal); L97.519 Non-pressure chronic ulcer of other part of right foot with unspecified severity; I73.9 Peripheral vascular disease, unspecified; L85.3 Xerosis cutis
CPT/HCPCS: 11042; 11721; 36415; 82565; 84520; 99212

== ENCOUNTER → 2025-03-16 07:00 | Outpatient (BNV) | payer MEDICARE, SELFPAY | PROVIDERS: PCP Student in an Organized Health Care Education/Training Program; Visit Provider Internal Medicine | DX: I42.2 Other hypertrophic cardiomyopathy (principal); I27.20 Pulmonary hypertension, unspecified | CPT/HCPCS: 93306 ==

== ENCOUNTER → 2025-03-16 10:47 | Outpatient (REF) | payer MEDICARE, SELFPAY ==
--- OUTSIDE RECORDS SUMMARY | 2020-06-27 09:00 | XMS_ITS | Continuity of Care Document ---
Author Organization [facility] Address [address] [place] [address] Phone Care Team Providers Care Cuff Stitcher Name Role Phone Olga Srivastava Unavailable Unavailable Allergies, Adverse Reactions, Alerts Substance Reaction Status Criticality METHYLPREDNISOLONE ACETATE HivesHivesShortness Of [place] th Active No Information Medications Medication Instructions Dosage Effective Dates (start - stop) Status Comments tramadol 50 mg tablet take 0.5-1 tablet by oral route every 6 hours as needed. acute pain exemption - Active [place] 5 mg-325 mg tablet take 1 tablet by oral route every 6 hours as needed for pain - Active Voltaren 1 % topical gel Apply 2m topically to affected area QID prn - Active ORTHOVISC 30 mg/2 mL intra-articular syringe Inject 2ml into affected knee weekly for 3 weeks - Active Novolog 100 unit/mL subcutaneous solution inject by subcutaneous route per prescriber's instructions. Insulin dosing requires individualization. 0.00 - Active Crestor 5 mg tablet take 2 tablet by oral route every day 10 MG - Active Multi-Day tablet take 1 tablet by oral route every day with food - Active FISH OIL (unknown strength) Not Available - Active Procedures Procedure Date Office/outpatient visit,est, mod 2020 Translaminar Lumbar\Sacral Glucose blood test Methylprednisolone 80 Mg Office/outpatient visit,est, mod 2020 Translaminar Lumbar\Sacral Methylprednisolone 80 Mg Glucose blood test Office/outpatient visit,est, mod 2019 RF Injection Lumbar Or Sacral, Single Fa cet Joint Additional L/S Joint RF Injection Glucose blood test RF Injection Lumbar Or Sacral, Single Fa cet Joint Additional L/S Joint RF Injection Glucose blood test Office/outpatient visit,est, mod 2018 Paravertebral Facet Injection Lumbar /w Imaging Paravertebral Face Inj Lumbar 2nd Level Paravertebral Facet Inj Lumbar 3rd And A ny Add Glucose blood test Office/outpatient visit,est, mod 2018 Paravertebral Facet Injection Lumbar /w Imaging Paravertebral Face Inj Lumbar 2nd Level Paravertebral Facet Inj Lumbar 3rd And A ny Add Surgical Tray Bupivicaine 0.5% Glucose blood test Office/outpatient visit,new, mod 2018 X-ray exam lower spine 2-3 views 2018 Office/outpatient visit,est, mod 2018 Office/outpatient visit,est, mod 2017 Office/outpatient visit,est, mod 2015 Physical therapy evaluation Physical Tx excercises, ea 15 min Mobility, Current: Walking, Moving, Funt c Limits Mobility, Projected: Walking, Moving, Fu ntc Limits Office/outpatient visit,est, mod 2014 Office/outpatient visit,est, mod 2014 X-ray exam of hand, 3+ views Office/outpatient visit,est, mod 2014 Office/outpatient visit,est, mod 2014 Office/outpatient visit,est, mod 2014 X-ray exam of ankle, complete 5 CAM Walker/ Pnuematic X-ray exam of ankle, complete 5 X-ray exam of knee, 3 views Office/outpatient visit,est, mod 2014 X-ray exam of knee, 3 views X-ray exam of hand, 3+ views Office/outpatient visit,est, mod 2014 Rhizolock, thumb spica, Gutter Splint No Knee Brace Immobilizer (all sizes) Orthovisc, Inj Drain/inject major joint or bursa Orthovisc, Inj Drain/inject major joint or bursa Orthovisc, Inj Drain/inject major joint or bursa Office/outpatient visit,est, mod 2014 Office/outpatient visit,new, mod 2014 Methylprednisolone Jd 40 Drain/inject major joint or bursa X-ray exam of knee, 3 views Advance Directives Directive Yes / No Effective Date File Name No Information Encounters Encounter Description Practice Location Reason(s) For Visit Diagnoses Date Provider Providers Copied on Encounter Office/outpa tient visit,est, mod [facility], [address], [place], [place], [address], [place] tel:[phone] [facility] 101 lumbar spine pain (chief complaint) Neurogenic claudicationS acroiliac joint dysfunctionLu mbar disc disease with radiculopathy Apr-0 - 1 Horace Espinoza. [address], [place], [place], [address] , [place]. [phone] Referring Provider: Olga SANCHEZ, [address], [place], [address] . tel:[phone] [facility], [address], [place], [place], [address], [place] tel:[phone] [facility] 204 No Information May- 1 Eduard Wen. [address], [place], [place], [address] , [place]. tel: [phone] [facility], [address], [place], [place], [address], [place] tel:[phone] [facility] [address] Neurogenic claudication May- 1 Prabhjot Hastings. [address], [place], [place], [address] , [place]. [phone] Referring Provider: Venkata Rick MD, [address], [place], [address] . tel:[phone] Office/outpa tient visit,est, mod [facility], [address], [place], [address], [place] tel:[phone] [facility] [address] lumbar spine pain (chief complaint) Neurogenic claudicationS acroiliac joint dysfunction 1 Prabhjot Hastings. [address], [place], [address] , [place]. tel:[phone] Referring Provider: Venkata Rick MD, [address], [place], [address] . tel:[phone] [facility], [address], [place], [place], [address], [place] tel:[phone] [facility] [address] Lumbar disc disease with radiculopathy 0- 0 Prabhjot Hastings. [address], [place], [place], [address] , [place]. [phone] Referring Provider: Venkata Rick MD, [address], [place], [address] . tel:[phone] [facility], [address], [place], [place], [address], [place] tel:[phone] [facility] [address] Lumbar disc disease with radiculopathy 0 Kenny Avalos. [address], [place], [place], [address] , [place]. tel:[phone] Referring Provider: Venkata Rick MD, [address], [place], [address] . tel:[phone] Office/outpa tient visit,est, mod [facility], [address], [place], [place], [address], [place] tel:[phone] [facility] [address] lumbar spine pain (chief complaint) Body mass index (BMI) 33.0-33.9, adultNeurogen ic claudicationS acroiliac joint dysfunction 0 0 Prabhjot Hastings. [address], [place], [place], [address] , [place]. tel:[phone] Referring Provider: Venkata Rick MD, [address], [place], [address] . tel:[phone] [facility], [address], [place], [place], [address], [place] tel:[phone] [facility] [address] Spondylosis of lumbar region without myelopathy or radiculopathy 0 Prabhjot Hastings. [address], [place], [address] , [place]. tel:[phone] Referring Provider: Venkata Rick MD, [address], [place], [address] . tel:[phone] [facility], [address], [place], [place], [address], [place] tel:[phone] Spondylosis of lumbar region without myelopathy or radiculopathy 0 Prabhjot Hastings. [address], [place], [address] , [place]. tel:[phone] Referring Provider: Venkata Rick MD, [address], [place], [address] . tel:[phone] [facility], [address], [place], [address], [place] tel:[phone] [facility] [address] Spondylosis of lumbar region without myelopathy or radiculopathy 0 Prabhjot Hastings. [address], [place], [address] , [place]. tel: [phone] Referring Provider: Venkata Rick MD, [address], [place], [address] . tel:[phone] [facility], [address], [place], [place], [address], [place] tel:[phone] [facility] [address] Spondylosis of lumbar region without myelopathy or radiculopathy 9 Prabhjot Hastings. [address], [place], [address] , [place]. tel: [phone] Referring Provider: Venkata Rick MD, [address], [place], [address] . tel:[phone] Office/outpa tient visit,est, mod [facility], [address], [place], [place], [address], [place] tel:[phone] [facility] [address] lumbar spine pain (chief complaint) Body mass index (BMI) 33.0-33.9, adultSpondylo sis of lumbar region without myelopathy or radiculopathy Neurogenic claudication 9 Prabhjot Hastings. [address], [place], [address] , [place]. tel:[phone] Referring Provider: Venkata Rick MD, [address], [place], [address] . tel:[phone] [facility], [address], [place], [place], [address], [place] tel:[phone] [facility] [address] Spondylosis of lumbar region without myelopathy or radiculopathy 9 Prabhjot Hastings. [address], [place], [address] , [place]. [phone] Referring Provider: Venkata Rick MD, [address], [place], [address] . tel:[phone] [facility], [address], [place], [place], [address], [place] tel:[phone] Spondylosis of lumbar region without myelopathy or radiculopathy 9 Prabhjot Hastings. [address], [place], [place], [address] , [place]. tel:[phone] Referring Provider: Venkata Rick MD, [address], [place], [address] . tel:[phone] Office/outpa tient visit,est, mod [facility], [address], [place], [place], [address], [place] tel:[phone] [facility] - [address] lumbar spine pain (chief complaint) Body mass index (BMI) 33.0-33.9, adultSpondylo sis of lumbar region without myelopathy or radiculopathy Neurogenic claudication 9 Prabhjot Hastings. [address], [place], [address] , [place]. tel:[phone] Referring Provider: Venkata Rick MD, [address], [place], [address] . tel:[phone] [facility], [address], [place], [place], [address], [place] tel:[phone] [facility] [address] Spondylosis of lumbar region without myelopathy or radiculopathy 9 Prabhjot Hastings. [address], [place], [address] , [place]. tel:[phone] Referring Provider: Venkata Rick MD, [address], [place], [address] . tel:[phone] Office/outpa tient visit,[facility], [address], [place], [place], [address], [place] tel:[phone] [facility] 204 lumbar spine pain (chief complaint) Body mass index (BMI) 33.0-33.9, adultSpondylo sis of lumbar region without myelopathy or radiculopathy Neurogenic claudication 9 Prabhjot Hastings. [address], [place], [address] , [place]. tel:[phone] Referring Provider: Chuy Ogden MD H, [address], [place], [address] . tel:[phone] Office/outpa tient visit,[facility], [address], [place], [place], [address], [place] tel:[phone] [facility] 201 lumbar spine (chief complaint) Body mass index (BMI) 33.0-33.9, adultLumbar painLumbar disc disease with radiculopathy 9 Alin Vera . [address], [place], [address] , [place]. tel:[phone] Referring Provider: Chuy Ogden MD H, [address], [place], [address] . tel:[phone] Office/outpa tient visit,[facility], [address], [place], [place], [address], [place] tel:[phone] [facility] 201 right knee pain (chief complaint) Closed nondisplaced fracture of right patella, unspecified fracture morphology, initial encounter 8 Alin Vera . [address], [place], [address] , [place]. tel: [phone] Referring Provider: Chuy Ogden MD H, [address], [place], [address] . tel:[phone] Office/outpa tient visit,est, [facility], [address], [place], [place], [address], [place] tel:[phone] [facility] knee (chief complaint) Contusion of right knee, subsequent encounter 6 Alin Vera . [address], [place], [place], [address] , [place]. tel: [phone] Referring Provider: Chuy Granados, [address], [place], [address] . tel:[phone] [facility], [address], [place], [address], [place] tel:[phone] [facility] hip (chief complaint) hip (chief complaint) Contusion of right knee, subsequent encounter 6 Lo Causey. [address], [place], [address] , [place]. tel: [phone] Referring Provider: Chuy Ogden MD H, [address], [place], [address] . tel:[phone] Office/outpa tient visit,est, [facility], [address], [place], [address], [place] tel:[phone] [facility] right knee pain (chief complaint) right ankle pain (chief complaint) Contusion of right knee, subsequent encounterSpra in of right ankle, unspecified ligament, subsequent encounter 5 Alin Vera . [address], [place], [address] , [place]. tel: [phone] Referring Provider: Chuy Granados, [address], [place], [address] . tel:[phone] [facility], [address], [place], [place], [address], [place] tel:[phone] [facility] left hand fracture (chief complaint) Nondisplaced fracture of proximal phalanx of left little finger with routine healing, subsequent encounter 5 Nino JIMENEZ Check. [address], [place], [place], [address] , [place]. tel: [phone] Referring Provider: Jerry Clark, [address], [place], [address] . tel:[phone] Office[facility]outpa [facility]ient visit,[facility], [facility], [address], [place], [place], [address], [place] tel:[phone] [facility] right foot pain (chief complaint) Sprain of right ankle, unspecified ligament, subsequent encounter 5 Alin Vera . [address], [place], [place], [address] , [place]. tel: [phone] Referring Provider: Chuy Ogden MD H, [address], [place], [address] . tel:[phone] [facility]pa [facility]ient [facility], [facility], [address], [place], [place], [address], [place] tel:[phone] [facility] left hand small finger fracture (chief complaint) Finger pain, leftClosed displaced fracture of proximal phalanx of right little finger, initial encounter 5 Nino JIMENEZ Check. [address], [place], [place], [address] , [place]. tel: [phone] Referring Provider: Chuy Granados, [address], [place], [address] . tel:[phone] Office/outpa tient visit,est, [facility], [address], [place], [address], [place] tel:[phone] [facility] right knee pain (chief complaint) right ankle pain (chief complaint) knee (chief complaint) Right knee painRight ankle painContusion of right knee, subsequent encounter 5 Alin Vera . [address], [place], [address] , [place]. [phone] Referring Provider: Chuy Granados, [address], [place], [address] . tel:[phone] [facility], [address], [place], [address], [place] tel:[phone] [facility] 400 Swelling of right lower extremity 5 Alin Vera . [address], [place], [place], [address] , [place]. [phone] Referring Provider: Minerva Clark, [address], [place], [address] . tel:[phone] [facility]pa [facility]ient [facility], [facility], [address], [place], [address], [place] tel:[phone] [facility] 400 right knee pain (chief complaint) left hand swelling (chief complaint) Right knee painLeft hand painPrimary osteoarthriti s of right kneeClosed nondisplaced fracture of right patella, unspecified fracture morphology, initial encounterFrac ture of proximal phalanx of digit of left hand 5 Lashonda Palma. [address], [place], [address] , [place]. [phone] Referring Provider: Minerva Clark, [address], [place], [address] . tel:[phone] [facility], [address], [place], [place], [address], [place] tel:[phone] [facility] 400 right knee pain (chief complaint) Primary osteoarthriti s of right knee Dec- 5 Alin Vera . [address], [place], [place], [address] , [place]. tel:[phone] Referring Provider: Chuy Ogden MD H, [address], [place], [address] . tel:[phone] [facility], [address], [place], [address], [place] tel:[phone] [place] [address] right knee pain (chief complaint) Primary osteoarthriti s of right knee 5 Alin Vera . [address], [place], [address] , [place]. tel:[phone] Referring Provider: Chuy Ogden MD H, [address], [place], [address] . tel:[phone] [facility], [address], [place], [address], [place] tel:[phone] [facility] 400 right knee pain (chief complaint) Primary osteoarthriti s of right knee 5 Alin Vera . [address], [place], [address] , [place]. tel:[phone] Referring Provider: Chuy Ogden MD H, [address], [place], [address] . tel:[phone] Office/outpa tient visit,est, mod [facility], [address], [place], [address], [place] tel:[phone] [facility] right knee pain (chief complaint) Degenerative joint disease of knee 5 Alin Vera . [address], [place], [place], [address] , [place]. tel: [phone] Referring Provider: Chuy Ogden MD H, [address], [place], [address] . tel:[phone] Office/outpa tient visit,new, [facility], [address], [place], [address], [place] tel:[phone] [facility] right knee pain (chief complaint) No Information 5 Alin Vera . [address], [place], [place], [address] , [place]. tel: [phone] Referring Provider: Chuy Ogden MD H, [address], [place], [address] . tel:[phone] [facility], [address], [place], [address], [place] tel:[phone] [place] [address] No Information 5 Alin Vera . [address], [place], [place], [address] , . tel: [phone] Family History Family Member Type Diagnosis Age At Onset Father Problem (finding) Mother Problem (finding) Stomach Sister Problem (finding) malignant neop lasm of breast in first degree relative Mother Problem (finding) Payers Payer name Insurance type Covered libertarian ID Authoriza tion(s) MEDICARE MB [id number] AARP SUPPLEMENT CI [id number] Social History Type Description Quantity Date Captured Comments Alcohol Use Details wine 2 drinks weekly Caffeine Use Details coffee Tobacco Use Status No Information Smoking Status Never smoker Non-Smoking Tobacco Use Details : No Details Available : No Details Available Sex Female Vital Signs Date / Time: Height Weight BMI Pulse Rate Blood Pressure Temperature Respiratory Rate Body Surface Area Head Circumference Head Circ. Percentile Wt./Leeroy. Percentile BMI percentile Pulse Ox Inhaled Ox 2:00 PM 66.00 in 95.254 kg (210.00 lbs) 33.8 9 kg/m eter (2) 2.11 meter(2) Chief Complaint And Reason For Visit From encounter dated '06/27/2020 14:00'. lumbar spine pain (chief complaint). Description: Ms Interiano is a 79 year old female who complains of lumbar spine pain. Patient presents s/p Caudal MART on 06/11/[address] Rick which provides 50% relief. She presents with pain. The symptoms occur occasionally. The problem is stable. Currently the patient states that the symptoms are mild-moderate. The pain is described as aching, dull, randell p and shooting. The symptoms occur with activity. She rates her best pain as 0/10. She rates her worst pain as 10/10. She rates her current pain as 0/10. The pain does not radiate. The symptoms are aggravated by daily activities and standing. Ana M states that the symptoms are relieved by rest. In addition to lumbar spine pain the patient is also experiencing decreased mobility. She denies having any pertinent negatives. Reason For Referral Reason For Referral No Information Plan Of Treatment Date Type Action Status Referral Ordered: X-ray exam lower spine 2-3 views ordered Referral Ordered: MRI of lumbar spine W/o Cntrst ordered Referral Ordered: X-ray exam of hand, 3+ views LT ordered Referral Ordered: X-ray exam of finger(s),2+ views LT ordered Referral Ordered: X-ray exam of ankle, complete RT ordered Referral Ordered: Extremity veins study, limited RT leg ordered Referral Ordered: X-ray exam of hand, 2 views LT hand ordered Referral Ordered: X-ray exam of knee, 3 views RT knee ordered Referral Ordered: X-ray exam of knee, 3 views RT ordered Patient Education A Healthy Lifestyle: Ca re Instructions completed Patient Education Learning About Low Back Pain completed Patient Education Learning About Managing Chronic Pain completed Patient Education Getting Back to Normal After Low Back~ completed Patient Education Back Care and Preventin g Injuries: Ca~ completed Patient Education Chronic Pain: Care Inst ructions completed Patient Education Developing a Pain Manag ement Plan: Ca~ completed Patient Education Chronic Pain: Care Inst ructions completed Patient Education Learning About a Pain D iary completed Patient Education Learning About a Pain D iary completed Patient Education Chronic Pain: Care Inst ructions completed Patient Education Back Pain: Care Instruc tions completed Patient Education A Healthy Lifestyle: Ca re Instructions completed Patient Education Learning About Vitamin D completed Patient Education A Healthy Lifestyle: Ca re Instructions completed Patient Education Broken Kneecap: Care In structions completed History Of Present Illness Encounter Date Complaint History Of Prese nt Illness lumbar spine pain Ms Interiano i s a 79 year old female who complains of lumbar spine pain. Patient presents s/p Caudal MART on 06/11/[address] Rick which provides 50% relief. She presents with pain. The symptoms occur occasionally. The problem is stable. Currently the patient states that the symptoms are mild-moderate. The pain is described as aching, dull, sharp and shooting. The symptoms occur with activity. She rates her best pain as 0/10. She rates her worst pain as 10/10. She rates her current pain as 0/10. The pain does not radiate. The symptoms are aggravated by daily activities and standing. Ana M states that the symptoms are relieved by rest. In addition to lumbar spine pain the patient is also experiencing decreased mobility. She denies having any pertinent negatives. lumbar spine pain Ana M Interiano is a 79 year old female. She presents with pain. Patient is s/p on caudal MART on 06/15/2020erformed by Dr. Rick. Patient states that this procedure relieved her pain at the time but does not remember for how long. Patient states that when she walks or stand for any length of time the pain becomes severe. The problem is worse. The patient is experiencing pain in the following location: lower back. She rates her worst pain as 10/10. She rates her current pain as 7/10. lumbar spine pain Ana M Interiano is a 78 year old female. She presents with pain. Patient is s/p on right L45S1 RFA on 04/04/2019 and left L54S1 RFA on 04/18/[address] Rick. Patient states that this procedure relieved 0% of the pain. Patient states that the right side felt some relief for the first ten days but now the pain has returned completely. The problem is unchanged. Currently the patient states that the symptoms are moderate. The pain is described as stabbing and sharp. The patient is experiencing pain in the following location: lower back. She rates her worst pain as 9/10. She rates her current pain as 6/10. The symptoms are aggravated by daily activities. Ana M states that the symptoms are relieved by rest. lumbar spine pain Ana M Interiano is a 78 year old female. She presents with pain. Patient is s/p on bilateral L3-5 MBB on 03/07/[address] Rick. Patient states that this procedure relieved 50% of the pain. The problem is stable. The pain is described as stabbing. The symptoms occur with activity. The pain is described as. The patient is experiencing pain in the following location: lower back. She rates her worst pain as 10/10. She rates her current pain as 6/10. The symptoms are aggravated by daily activities. lumbar spine pain Ana M Interiano is a 78 year old female. She presents with pain. Patient is s/p on bilateral L3-5 MBB on 01/31/[address] Rick. Patient states that this procedure relieves 75% of the pain. The problem is stable. Currently the patient states that the symptoms are moderate. The pain is described as shooting. The symptoms occur with activity. The patient is experiencing pain in the following location: lower back. She rates her worst pain as 9/10. She rates her current pain as 6/10. The symptoms are aggravated by daily activities. lumbar spine pain Ana M Interiano is a 78 year old female. She presents with pain. Patient was referred by Dr. Ogden for the evaluation of the lumbar spine. Patient has had ongoing pain for 4-5 months, denies injury or trauma. Patient has been to physical therapy and received no relief. The symptoms occur occasionally. The problem is worse. Currently the patient states that the symptoms are moderate. The pain is described as shooting and. The symptoms occur with activity. The patient is experiencing pain in the following location: lower back. She rates her worst pain as 10/10. She rates her current pain as 10/10. The pain radiates from the lower back on the right greater than the left then to the thigh on the right greater than the left. The symptoms are aggravated by standing and walking. Ana M states that the symptoms are relieved by sitting. She denies having any pertinent negatives. lumbar spine Ana M Interiano i s a 78 year old female. Patient presents with pain across low back that radiates down both legs anteriorly to the knees. Pain level today is 5/10 mostly with standing and walking. She presents with pain. The symptoms occur constantly with intermittent worsening. The problem is worse. Currently the patient states that the symptoms are mild-moderate. The pain is described as aching. She rates her worst pain as 10/10. She rates her current pain as 5/10. The pain radiates from the lower back then to the knees. The symptoms are aggravated by daily activities, standing and walking. Ana M states that the symptoms are relieved by heat and sitting. In addition to lumbar spine the patient is also experiencing decreased mobility. right knee pain Ana M Interiano i s a 77 year old female. Patient presents with right knee pain that began about 2 month ago. She reports she fell 6 months ago and did not seek medical attention following the fall. She is now experiencing instability and pain. She presents with pain on the right side. The symptoms occur intermittently. The problem is unchanged. The pain is described as aching, deep and discomforting. The symptoms occur intermittently. She also reports additional pain in the entire knee region on the right side. She rates her worst pain as 8/10. She rates her current pain as 3/10. The pain does not radiate. The symptoms are aggravated by daily activities, movement, standing and walking. Ana M states that the symptoms are relieved by rest. In addition to right knee pain the patient is also experiencing decreased mobility, joint pain and pain after activity. knee hip hip right ankle pain Ms Interiano is a 74 year old female who complains of right ankle pain. Patient also reports 100 % improvement in the rt ankle sprain. She presents with pain on the right side. The symptoms occur rarely. The problem is better. She rates her current pain as 0/10. The symptoms are aggravated by no specific activity. She denies having any associated symptoms. right knee pain Ms Interiano is a 74 year old female who complains of right knee pain. Patient reports 50 % improvement overall since last visit. Patient reports her biggest concern is the weakness in the leg. She presents with pain, swelling and weakness on the right side. The symptoms occur occasionally. The problem is improving. Currently the patient states that the symptoms are moderate. The pain is described as aching and discomforting. The symptoms occur continuously. She also reports additional pain in the entire knee region on the right side. She rates her current pain as 4/10. The patient presents with whole leg weakness. The symptoms are aggravated by ascending stairs, daily activities, descending stairs, first steps while awake, standing and walking. Ana M states that the symptoms are relieved by rest and elevation. left hand fracture Ms Interiano is a 74 year old female who complains of left hand fracture. She presents with fracture on the left side. The symptoms occur intermittently. The problem is improving. Currently the patient states that the symptoms are mild-moderate. The pain is described as aching. The symptoms are aggravated by daily activities. Ana M states that the symptoms are relieved by brace. In addition to left hand fracture the patient is also experiencing decreased mobility. right foot pain Ms Interiano is a 74 year old female who complains of right foot pain. Patient is 3 weeks s/p right foot and knee injury. She reports she has no foot or knee pain but continues to have pain in the rt gamboa and calf. She did have a negative doppler. She presents with pain on the right side. She states that the symptoms have been acute traumatic and began on 02/02/2015. The symptoms occur occasionally. The problem is improving. Currently the patient states that the symptoms are moderate. The pain is described as aching and discomforting. The symptoms occur intermittently. The patient is experiencing pain in the following location: gamboa on the right side. She also reports additional pain in the calf on the right side. She rates her current pain as 1/10. The symptoms are aggravated by daily activities, walking, standing and sleeping in any position. Ana M states that the symptoms are relieved by rest. In addition to right foot pain the patient is also experiencing limping, nighttime awakening and pain after activity. left hand small finger fracture Ms Interiano is a 74 year old female who complains of left hand small finger fracture. She presents with small finger fracture on the left side. She states that the symptoms have been acute traumatic and began on 02/02/2015. She indicates the injury occurred at home. Ana M states that the symptoms began as the result of a fall. The symptoms occur intermittently. Currently the patient states that the symptoms are mild-moderate. The pain is described as aching. The symptoms are aggravated by daily activities. Ana M states that the symptoms are relieved by brace. In addition to left hand small finger fracture the patient is also experiencing decreased mobility, difficulty initiating sleep and nocturnal awakening. knee Ms Interiano is a 74 year old female who complains of. right knee pain Ana M Interiano i s a 74 year old female. Patient reports she had a fall on 02/02/2015. She was seen by Minerva OLMEDO on 02/04/2015. She was given a knee immobilizer but states she can not get it on properly and it is not able to get into a car with it on. She is ambulating today with a cane and no immobilizer. She presents with pain on the right side. She states that the symptoms have been acute traumatic and began on 02/02/2015. The symptoms occur constantly. The problem is unchanged. Currently the patient states that the symptoms are moderate. The pain is described as aching and discomforting. The symptoms occur intermittently. She also reports additional pain in the entire knee region on the right side. She rates her current pain as 4/10. The symptoms are aggravated by daily activities, exercise, driving, walking, standing and sleeping in any position. Ana M states that the symptoms are relieved by rest. In addition to right knee pain the patient is also experiencing decreased mobility, difficulty bending, difficulty going to sleep, joint pain, limping, nighttime awakening, pain after activity, pain while sitting and tenderness. right ankle pain Ms Interiano is a 74 year old female who complains of right ankle pain. Patient reports she also has increased rt ankle pain since the fall on 02/02/2015. She presents with pain on the right side. She states that the symptoms have been acute traumatic and began on 02/02/2015. The symptoms occur constantly. Currently the patient states that the symptoms are moderate-severe. The pain is described as aching, deep and discomforting. The symptoms occur continuously. The patient is experiencing pain in the following locations: lateral ankle and medial ankle on the right side. She rates her current pain as 10/10. The symptoms are aggravated by daily activities, standing, walking and sleeping in any position. Ana M states that the symptoms are relieved by no specific activity. In addition to right ankle pain the patient is also experiencing decreased mobility, difficulty going to sleep, joint tenderness, limping, nighttime awakening, pain after activity and swelling. right knee pain Ms Interiano is a 74 year old female who complains of right knee pain. She presents with pain on the right side. She states that the symptoms have been acute traumatic and began on 02/02/2015. She indicates the injury occurred at home. Ana M states that the symptoms began as the result of fall on knee. The symptoms occur constantly with intermittent worsening. The problem is fluctuating. Currently the patient states that the symptoms are moderate. The pain is described as burning. The symptoms occur continuously. She also reports additional pain in the peripatellar area on the right side. She rates her current pain as 9/10. The pain does not radiate. The symptoms are aggravated by daily activities. Ana M states that the symptoms are relieved by elevation and rest. In addition to right knee pain the patient is also experiencing decreased mobility, difficulty going to sleep and nighttime awakening. left hand swelling Ms Interiano is a 74 year old female who complains of left hand swelling. She presents with swelling and bruising on the left side. She states that the symptoms have been acute traumatic and began on 02/02/2015. She indicates the injury occurred at home. Ana M states that the symptoms began as the result of a fall. The symptoms occur constantly. The problem is fluctuating. Currently the patient states that the symptoms are moderate. The symptoms occur continuously. The symptoms are aggravated by no specific activity. Ana M states that the symptoms are relieved by no specific activity. In addition to left hand swelling the patient is also experiencing decreased mobility. Pertinent negatives include tenderness and pain. right knee pain Ana M Interiano i s a 74 year old female. Patient presents for her third Orthovosc injection of the right knee. She states she the pain is not constant anymore. She presents with pain on the right side. The symptoms occur intermittently. The problem is fluctuating. Currently the patient states that the symptoms are mild-moderate. The pain is described as throbbing. The symptoms occur with activity. She rates her worst pain as 8/10. She rates her current pain as 0/10. The pain does not radiate. The symptoms are aggravated by walking. Ana M states that the symptoms are relieved by rest. In addition to right knee pain the patient is also experiencing joint pain. right knee pain Ana M Interiano i s a 74 year old female. Patient is here for second Orthovisc for her right knee. She presents with pain on the right side. The symptoms occur intermittently. The problem is unchanged. Currently the patient states that the symptoms are mild-moderate. The pain is described as aching. The symptoms occur at night. She rates her current pain as 4/10. The pain does not radiate. The symptoms are aggravated by ascending stairs, descending stairs, sleeping on the affected side, standing and walking. Ana M states that the symptoms are relieved by rest. In addition to right knee pain the patient is also experiencing instability and joint pain. right knee pain Ms Interiano is a 74 year old female who complains of right knee pain. Patient presents today for her 1st right knee Orthovisc injection. She presents with pain on the right side. She states that the symptoms have been chronic non-traumatic. The symptoms occur constantly. Currently the patient states that the symptoms are moderate-severe. The pain is described as aching, deep and discomforting. The symptoms occur continuously. She also reports additional pain in the entire knee region on the right side. She rates her current pain as 8/10. The symptoms are aggravated by ascending stairs, daily activities, descending stairs, exercise, driving, sleeping in any position, standing and walking. Ana M states that the symptoms are relieved by no specific activity. In addition to right knee pain the patient is also experiencing decreased mobility, difficulty bending, difficulty going to sleep, joint pain, limping, pain after activity, pain in bed, pain while sitting and tenderness. right knee pain Ms Interiano is a 74 year old female who complains of right knee pain. Patient did have an injection on 11/05/2014. She reports 0% improvement. She presents with pain on the right side. The symptoms occur constantly. The problem is unchanged. Currently the patient states that the symptoms are moderate-severe. The pain is described as aching, discomforting and sharp. The symptoms occur intermittently. She also reports additional pain in the postero-lateral aspect on the right side. She rates her current pain as 5/10. The symptoms are aggravated by ascending stairs, descending stairs, sleeping in any position, standing and walking. Ana M states that the symptoms are relieved by ice and NSAIDs. In addition to right knee pain the patient is also experiencing joint pain, limping, night pain, nighttime awakening, pain after activity, pain and tenderness. She has been treated with a corticosteroid injection on the right side. right knee pain Ana M Interiano i s a 74 year old female. Patient reports she has had knee pain for many years. She last had Orthovisc type injections 6 years ago and states they worked very well. She also feels she twisted the rt knee about 1 month ago. She states the pain increases thruout the day and is worse at night. She presents with pain on the right side. She states that the symptoms have been chronic non-traumatic. The symptoms occur constantly. Currently the patient states that the symptoms are moderate-severe. The pain is described as aching, deep and discomforting. The symptoms occur continuously. She also reports additional pain in the entire knee region on the right side. She rates her current pain as 5/10. The symptoms are aggravated by ascending stairs, daily activities, descending stairs, standing and walking. In addition to right knee pain the patient is also experiencing joint pain, limping, nighttime awakening, pain after activity and tenderness. Functional Status Date Functional Assessmen t No Information Instructions Date Instruction Additional Tristenr linda Continue physician d irected home exercises I have discussed the advantages and disadvantages of non-opioid alternatives if appropriate for the treatment of pain such as nyqk-eoc-kayoypc medications, acupuncture, cognitive and physical therapy. The risk of taking prescribed opioid medications were discussed including but not limited to addiction, injury, overdose, and . The patient has been provided the approved [facility] educational pamphlet non-opioid alternatives if opioids were prescribed.Consults:Testing: Urine toxicology as neededLifestyle: Encouraged stress releasing techniques IE meditation and yoga, pool based exercises-walking and core strengthening. Instructed not to consume ETOH while taking narcotics and to not drive while a new medication or dose is being started prior to acknowledging side-effects. Follow up: 2 weeks post injection Related to Sacroiliac joint dysfunction Continue physician d iremechelle home exercises I have discussed the advantages and disadvantages of non-opioid alternatives if appropriate for the treatment of pain such as rppv-jki-rwiiopn medications, acupuncture, cognitive and physical therapy. The risk of taking prescribed opioid medications were discussed including but not limited to addiction, injury, overdose, and . The patient has been provided the approved [facility] educational pamphlet non-opioid alternatives if opioids were prescribed.Tramadol 50 mg 0.5-1 tablet Q6h PRNCaudal ESIConsults:Testing: Urine toxicology as neededLifestyle: Encouraged stress releasing techniques IE meditation and yoga, pool based exercises-walking and core strengthening. Instructed not to consume ETOH while taking narcotics and to not drive while a new medication or dose is being started prior to acknowledging side-effects. Follow up: 2 weeks post injection Related to Sacroiliac joint dysfunction Continue physician d irected home exercisesCaudal ESIConsults:Testing: Urine toxicology as neededLifestyle: Encouraged stress releasing techniques IE meditation and yoga, pool based exercises-walking and core strengthening. Instructed not to consume ETOH while taking narcotics and to not drive while a new medication or dose is being started prior to acknowledging side-effects. Follow up: 2 weeks post injection Related to Sacroiliac joint dysfunction Dietary needs education Related to Body mass index (BMI) 33.0-33.9, adult Right L345 RF ablati on, followed by Left L345 RF ablation 2 weeks apartTo minimize in-office procedural discomfort and patient recovery discomfort per discussion with the patient. Continue physician directed home exercisesConsults:Testing: Urine toxicology as neededLifestyle: Encouraged stress releasing techniques IE meditation and yoga, pool based exercises-walking and core strengthening. Instructed not to consume ETOH while taking narcotics and to not drive while a new medication or dose is being started prior to acknowledging side-effects. Follow up: 2 weeks post RF completion Related to Neurogenic claudication Dietary needs education Related to Body mass index (BMI) 33.0-33.9, adult Continue physician d irected home exercisesBilateral L345 diagnostic confirmatory MBBsConsults:Testing: Urine toxicology as neededLifestyle: Encouraged stress releasing techniques IE meditation and yoga, pool based exercises-walking and core strengthening. Instructed not to consume ETOH while taking narcotics and to not drive while a new medication or dose is being started prior to acknowledging side-effects. Follow up: < 1 week post injection Related to Neurogenic claudication Dietary needs education Related to Body mass index (BMI) 33.0-33.9, adult I have discussed the advantages and disadvantages of non-opioid alternatives if appropriate for the treatment of pain such as vbkw-kaq-wggkysm medications, acupuncture, cognitive and physical therapy. The risk of taking prescribed opioid medications were discussed including but not limited to addiction, injury, overdose, and . The patient has been provided the approved [facility] educational pamphlet non-opioid alternatives if opioids were prescribed.Tramadol 50 mg 1/2-1 tablet every 6 hours as needed, acute pain examinationProcedure: Diagnostic medial branch blocks of the lumbar spine, L3 L4 L5 x2 1 week apart: Bilateralif temporary improvement >50% will proceed to radiofrequency denervationConsults:Testing: Urine toxicology as neededPDMP as neededLifestyle: I have discussed the advantages and disadvantages of non-opioid alternatives if appropriate for the treatment of pain such as vgdj-xhv-aqxxqmt medications, acupuncture, cognitive and physical therapy. The risk of taking prescribed opioid medications were discussed including but not limited to addiction, injury, overdose, and . The patient has been provided the approved [facility] educational pamphlet non-opioid alternatives if opioids were prescribed. Encouraged stress releasing techniques IE meditation and yoga, pool based exercises-walking and core strengthening. Instructed not to consume ETOH while taking narcotics and to not drive while a new medication or dose is being started prior to acknowledging side-effects. Follow up: Within 1 week post MBB Related to Neurogenic claudication Dietary needs education Related to Body mass index (BMI) 33.0-33.9, adult discussed her exam f indings and x-rays. She has a chief complaint of low back pain. No antecedent trauma. She has a history of lumbar disc disease and has been treated appropriately with physical therapy. He'll therapy did not relieve her pain and she continues to complain of pain on a daily basis. She is neurologically intact. We discussed her pathology as well as treatment options. 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 She presents the chief complaint of right knee pain. She fell a while back and had some knee pain. She has some pain consistent with arthritis. It appears that she has a nondisplaced longitudinal patellar fracture from her fall. Overall she is doing pretty well. If her pain doesn't improve, we'll consider an injection for arthritis. Her injury is old enough that I would not recommend bracing at this time. She may continue activity as tolerated. I will see her back on an as necessary basis. Related to Closed nondisplaced fracture of right patella, unspecified fracture morphology, initial encounter Discussed risks and benefits of treatment plan Related to Closed nondisplaced fracture of right patella, unspecified fracture morphology, initial encounter I discussed exam jody stapleton with Mrs. Interiano. She is here for follow-up of her right knee pain. At this point her pain has resolved and she is essentially pain-free. She is happy with her progress and will continue with activities as tolerated. I will see her back on an as-needed basis. Related to Contusion of right knee, subsequent encounter Patient to continue with HEP as insructed and NOT to overdo it. Continue with program upon patient return, with progress toward achieving all goals and ultimate D/C and (I) with HEP. Pt will be seen 3x/wk for 4 weeks initially and re-evaluated prior to 10th visit. Related to Contusion of right knee, subsequent encounter I discussed exam jody stapleton with Mrs. Interiano. She is here for follow-up of her right leg pain. Her ankle is doing much better and no longer bothers her. The knee still is somewhat bothersome. She has some tenderness anteriorly as well as with full flexion. There is no tenderness of the patella itself. She is able to do a straight leg raise. We discussed potential treatment options. We will set her up with physical therapy and I will see her back in 6 weeks Related to Contusion of right knee, subsequent encounter start OT. RTC 6 weeks with repea t XR's. Related to Nondisplaced fracture of proximal phalanx of left little finger with routine healing, subsequent encounter I discussed exam jody stapleton with Mrs. Cross. She presents for followup of her right ankle and right knee injuries. The right knee seems to be doing well. There has been some decrease in size of the prepatellar bursa. The right ankle is feeling better as well. We'll discontinue the Cam Walker and allow her to weight-bear as tolerated. She may begin increasing her activity as well. I will see her back in 4 weeks or so. Related to Sprain of right ankle, unspecified ligament, subsequent encounter Recommend daytime babysitter use and the splint was adjusted to be MP block. TID PIP motion as shown. RTC 2 weeks for repeat XR's of the left hand 3 views. Related to Closed displaced fracture of proximal phalanx of right little finger, initial encounter I discussed exam jody stapleton and x-rays with Mrs. Interiano. She tripped and fell on a curb she did not see Zeenat in her right knee. She was seen in the office by one of the physicians quality control assistant and placed in the immobilizer. Today's x-rays do not show a definitive evidence of patellar fracture. Her right ankle bothers her more than the knee does. She is tender over her lateral malleolus and she has an avulsion yo off the tip the lateral malleolus. She does have Swelling and tenderness but had a negative Doppler ultrasound this morning. We discussed her pathology as well as treatment options. We'll place her in a Cam Walker for weightbearing. She may remove it at rest. We will also set her up with lymphedema therapy to work on that right lower extremity swelling. I attended to aspirate the prepatellar bursa but the congealed blood did not allow aspiration. We will see her back in 2 weeks. Related to Contusion of right knee, subsequent encounter Physical exam and x- ray findings discussed with patient and daughter. X-ray reviewed with Dr Oneill. Placed patient in ulnar gutter splint. Rings removed. Follow up in [address] Oneill. Related to Fracture of proximal phalanx of digit of left hand Patient is here toda y with complaint of right knee pain after landing on knee while tripping on curb Wednesday. Physical exam and x-ray findings discussed with patient and daughter. Patient has diffuse tenderness to right knee with effusion. Abrasion anterior knee where she landed. Dr Ramirez reviewed x-rays. Questionable nondisplaced patella fracture seen on sunrise view. Ms Interiano placed in knee immobilizer to wear with ambulation. Follow up with Dr Ogden in 2 weeks for repeat x-rays. Related to Closed nondisplaced fracture of right patella, unspecified fracture morphology, initial encounter We discussed her pat hology as well as treatment options. She is here for her third Orthovisc injection. She tolerated the injection well and I will see her back in 4 weeks to assess her progress. Related to Primary osteoarthritis of right knee Mrs. Interiano is he re for her second Orthovisc injection. She did not notice much improvement after the first injection. She tolerated the second injection well and I will see her back in one week. Related to Primary osteoarthritis of right knee I discussed exam jody stapleton and x-rays with Mrs. Interiano. She presents for her first Orthovisc injection. We reviewed the medication as well as expectations. She tolerated the injection well and I will see her back in one week. Related to Primary osteoarthritis of right knee I discussed exam jody stapleton with Mrs. Interiano. She did improve after the injection. She did not completely resolve her pain but otherwise is happy with her progress. We reviewed her pathology as well as treatment options. Several years ago she had a series of Supartz injections and did improve. She is headed out of town soon and we'll see her when she returns for a round of Orthovisc injections. Related to Degenerative joint disease of knee Assessments Type Assessment Date assessment Neurogenic claudication 021 impression Neurogenic claudication. 2020 impression Pleasant female jared ent complains of bilateral lumbosacral pain that has been present roughly since the spring. The pain is in the bilateral lumbosacral spine and is referred to the anterior and posterior thighs. She denies neurologic deficits of the lower extremities, however, feels globally weak. The pain is constant but made worse with prolonged standing and walking, improved by sitting and rest. Also can be exacerbated by rotation, extension and flexion motions. 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 Has tried conservative measures rest, OTC NSAIDs and ongoing physician directed home exercise program without significant improvement for at least 6 weeks in the past 6 monthsMRI of the L-spine (and report) dated 2018 reviewed and interpreted, which shows multilevel spondylosis and facet arthropathy, L2-3, L3-4 and L4-5, mild to moderate bilateral subarticular recess narrowing.Her history is very concerning for neurogenic claudication, however. There is no major central canal narrowing, just subarticular recess narrowing on MRI, versus facet arthropathy versus SI dysfunctionBil [id number] RF Mar 2019 and refers 0% improvement, the pain is at the most bottom MBB site and caudad to this; SI dysfunction is a concern but she has no pain at all while sitting; she still has marked pain with prolonged standing mostlyShe is s/p a caudal MART May 2019 and refers 50% improvement SInce her last visit, she is s/p caudal MART 06/11/2020 and refers 50% improvement, however her pain has returned back to baseline lasted approximately 10 days. She reports she also had a reaction to her injection she was transferred by ambulance after her injection due to difficulty breathing and broke out in hives- allergic reaction. She does report history of diabetes- on insulin, per patient blood sugar was in the low 100's that day. She uses pain medication very sparingly and assures me at her age she is not interested in pursuing surgery. She does not need a prescription today, will continue lumbar hygiene. Tramadol 50 mg 0.5-1 tablet Q6h PRNThe patient denies having recent onset bowel and/or bladder issues and denies suicidal or homicidal ideation. Denies new onset of weakness or paresthesia assessment Sacroiliac joint dysfunction Jun assessment Lumbar disc disease with radicul opathy impression Lumbar disc disease with radicul opathy. Patient Care Teams Name Effective Dates (start - stop) Status Members No Information
== END ==
LOC: HO.CARD 10:47
PROVIDERS: PCP Student in an Organized Health Care Education/Training Program; Visit Provider Student in an Organized Health Care Education/Training Program
DX: I50.30 Unspecified diastolic (congestive) heart failure (principal)
CPT/HCPCS: 93306

== ENCOUNTER 2025-03-19 11:30 | Outpatient (AMB) | payer MEDICARE, SELFPAY ==
--- OUTSIDE RECORDS SUMMARY | 2020-06-27 09:00 | XMS_ITS | Continuity of Care Document ---
Author Organization [facility] Address [address] [place] [address] Phone Care Team Providers Care Clinical Support Associate Name Role Phone Olga Srivastava Unavailable Unavailable Allergies, Adverse Reactions, Alerts Substance Reaction Status Criticality METHYLPREDNISOLONE ACETATE HivesHivesShortness Of [place] th Active No Information Medications Medication Instructions Dosage Effective Dates (start - stop) Status Comments tramadol 50 mg tablet take 0.5-1 tablet by oral route every 6 hours as needed. acute pain exemption - Active Yeso 5 mg-325 mg tablet take 1 tablet [...] Copied on Encounter Office/outpa tient visit,est, mod [facility], [address], [place], [place], [address], [place] tel:[phone] [facility] 101 lumbar spine pain (chief complaint) Neurogenic claudicationS acroiliac joint dysfunctionLu mbar disc disease with radiculopathy Apr-0 - 1 Horace Espinoza. [address], [place], [place], [address] , [place]. [phone] Referring Provider: Olga SANCHEZ, [address], [place], [address] . tel:[phone] [facility], [address], [place], [place], [address], [place] tel:[phone] [facility] 204 No Information May- 1 Eduard Wen. [address], [place], [place], [address] , [place]. tel: [phone] [facility], [address], [place], [place], [address], [place] tel:[phone] [place] [facility] [address] Neurogenic claudication May- 1 Prabhjot Hastings. [address], [place], [place], [address] , [place]. [phone] Referring Provider: Venkata Rick MD, [address], [place], [address] . tel:[phone] Office/outpa tient visit,est, mod [facility], [address], [place], [place], [address], [place] tel:[phone] [place] [address] lumbar spine pain (chief complaint) Neurogenic claudicationS acroiliac joint dysfunction 1 Prabhjot Hastings. [address], [place], [place], [address] , [place]. tel:[phone] Referring Provider: Venkata Rick MD, [address], [place], [address] . tel:[phone] [facility], [address], [place], [place], [address], [place] tel:[phone] [facility] [address] Lumbar disc disease with radiculopathy 0- 0 Prabhjot Hastings. [address], [place], [place], [address] , [place]. tel:[phone] Referring Provider: Venkata Rick MD, [address], [place], [address] . tel:[phone] [facility], [address], [place], [place], [address], [place] tel:[phone] [place] [address] Lumbar disc disease with radiculopathy 0 Kenny Avalos. [address], [place], [place], [address] , [place]. tel:[phone] Referring Provider: Venkata Rick MD, [address], [place], [address] . tel:[phone] Office/outpa tient visit,est, mod [facility], [address], [place], [place], [address], [place] tel:[phone] [facility] [address] lumbar spine pain (chief complaint) Body mass index (BMI) 33.0-33.9, adultNeurogen ic claudicationS acroiliac joint dysfunction 0 0 Prabhjot Hastings. [address], [place], [address] , [place]. tel:[phone] Referring Provider: Venkata Rick MD, [address], [place], [address] . tel:[phone] [facility], [address], [place], [place], [address], [place] tel:[phone] [facility] [address] Spondylosis of lumbar region without myelopathy or radiculopathy 0 Prabhjot Hastings. [address], [place], [place], [address] , [place]. tel:[phone] Referring Provider: Venkata Rick MD, [address], [place], [address] . tel:[phone] [facility], [address], [place], [place], [address], [place] tel:[phone] [facility] [address] Spondylosis of lumbar region without myelopathy or radiculopathy 0 Prabhjot Hastings. [address], [place], [place], [address] , [place]. tel:[phone] Referring Provider: Venkata Rick MD, [address], [place], [address] . tel:[phone] [facility], [address], [place], [place], [address], [place] tel:[phone] [facility] [address] Spondylosis of lumbar region without myelopathy or radiculopathy 0 Prabhjot Hastings. [address], [place], [place], [address] , [place]. tel: [phone] Referring Provider: Venkata Rick MD, [address], [place], [address] . tel:[phone] [facility], [address], [place], [place], [address], [place] tel:[phone] [facility] [address] Spondylosis of lumbar region without myelopathy or radiculopathy 9 Prabhjot Hastings. [address], [place], [place], [address] , [place]. tel: [phone] Referring Provider: Venkata Rick MD, [address], [place], [address] . tel:[phone] Office/outpa tient visit,est, mod [facility], [address], [place], [place], [address], [place] tel:[phone] [facility] [address] lumbar spine pain (chief complaint) Body mass index (BMI) 33.0-33.9, adultSpondylo sis of lumbar region without myelopathy or radiculopathy Neurogenic claudication 9 Prabhjot Hastings. [address], [place], [place], [address] , [place]. tel:[phone] Referring Provider: Venkata Rick MD, [address], [place], [address] . tel:[phone] [facility], [address], [place], [place], [address], [place] tel:[phone] [facility] [address] Spondylosis of lumbar region without myelopathy or radiculopathy 9 Prabhjot Hastings. [address], [place], [address] , [place]. [phone] Referring Provider: Venkata Rick MD, [address], [place], [address] . tel:[phone] [facility], [address], [place], [place], [address], [place] tel:[phone] [place] [address] Spondylosis of lumbar region without myelopathy or radiculopathy 9 Prabhjot Hastings. [address], [place], [place], [address] , [place]. tel:[phone] Referring Provider: Venkata Rick MD, [address], [place], [address] . tel:[phone] Office/outpa tient visit,est, mod [facility], [address], [place], [place], [address], [place] tel:[phone] [facility] [address] lumbar spine pain (chief complaint) Body mass index (BMI) 33.0-33.9, adultSpondylo sis of lumbar region without myelopathy or radiculopathy Neurogenic claudication 9 Prabhjot Hastings. [address], [place], [address] , [place]. tel:[phone] Referring Provider: Venkata Rick MD, [address], [place], [address] . tel:[phone] [facility], [address], [place], [place], [address], [place] tel:[phone] [place] [facility] [address] Spondylosis of lumbar region without myelopathy or radiculopathy 9 Prabhjot Hastings. [address], [place], [place], [address] , [place]. tel:[phone] Referring Provider: Venkata Rick MD, [address], [place], [address] . tel:[phone] Office/outpa tient visit,[facility], [address], [place], [place], [address], [place] tel:[phone] [facility] 204 lumbar spine pain (chief complaint) Body mass index (BMI) 33.0-33.9, adultSpondylo sis of lumbar region without myelopathy or radiculopathy Neurogenic claudication 9 Prabhjot Hastings. [address], [place], [address] , [place]. tel:[phone] Referring Provider: Chuy Ogden MD H, [address], [place], [address] . tel:[phone] Office/outpa tient visit,[facility], [address], [place], [place], [address], [place] tel:[phone] [facility] 201 lumbar spine (chief complaint) Body mass index (BMI) 33.0-33.9, adultLumbar painLumbar disc disease with radiculopathy 9 Alin Vera . [address], [place], [place], [address] , [place]. tel:[phone] Referring Provider: Chuy Ogden MD H, [address], [place], [address] . tel:[phone] Office/outpa tient visit,[facility], [address], [place], [place], [address], [place] tel:[phone] [facility] 201 right knee pain (chief complaint) Closed nondisplaced fracture of right patella, unspecified fracture morphology, initial encounter 8 Alin Vera . [address], [place], [place], [address] , [place]. tel: [phone] Referring Provider: Chuy Ogden MD H, [address], [place], [address] . tel:[phone] Office/outpa tient visit,est, [facility], [address], [place], [place], [address], [place] tel:[phone] [facility] knee (chief complaint) Contusion of right knee, subsequent encounter 6 Alin Vera . [address], [place], [place], [address] , [place]. tel: [phone] Referring Provider: Chuy Granados, [address], [place], [address] . tel:[phone] [facility], [address], [place], [place], [address], [place] tel:[phone] [facility] hip (chief complaint) hip (chief complaint) Contusion of right knee, subsequent encounter 6 Lo Causey. [address], [place], [place], [address] , [place]. tel: [phone] Referring Provider: Chuy Ogden MD H, [address], [place], [address] . tel:[phone] Office/outpa tient visit,est, [facility], [address], [place], [place], [address], [place] tel:[phone] [facility] right knee pain (chief complaint) right ankle pain (chief complaint) Contusion of right knee, subsequent encounterSpra in of right ankle, unspecified ligament, subsequent encounter 5 Alin Vera . [address], [place], [place], [address] , [place]. tel: [phone] Referring Provider: Chuy Granados, [address], [place], [address] . tel:[phone] Office/outpa tient visit,[facility], [facility], [address], [place], [place], [address], [place] tel:[phone] [facility] left hand fracture (chief complaint) Nondisplaced fracture of proximal phalanx of left little finger with routine healing, subsequent encounter 5 Nino JIMENEZ Check. [address], [place], [place], [address] , [place]. tel: [phone] Referring Provider: Jerry Clark, [address], [place], [address] . tel:[phone] Office/outpa tient visit,[facility], [facility], [address], [place], [place], [address], [place] tel:[phone] [facility] right foot pain (chief complaint) Sprain of right ankle, unspecified ligament, subsequent encounter 5 Alin Vera . [address], [place], [place], [address] , [place]. tel: [phone] Referring Provider: Chuy Ogden MD H, [address], [place], [address] . tel:[phone] Office/outpa tient visit,[facility], [facility], [address], [place], [place], [address], [place] tel:[phone] [facility] left hand small finger fracture (chief complaint) Finger pain, leftClosed displaced fracture of proximal phalanx of right little finger, initial encounter 5 Nino JIMENEZ Check. [address], [place], [address] , [place]. tel: [phone] Referring Provider: Chuy Granados, [address], [place], [address] . tel:[phone] Office/outpa tient visit,est, [facility], [address], [place], [place], [address], [place] tel:[phone] [facility] right knee pain (chief complaint) right ankle pain (chief complaint) knee (chief complaint) Right knee painRight ankle painContusion of right knee, subsequent encounter 5 Alin Vera . [address], [place], [place], [address] , [place]. [phone] Referring Provider: Chuy Granados, [address], [place], [address] . tel:[phone] [facility], [address], [place], [place], [address], [place] [phone] [facility] 400 Swelling of right lower extremity 5 Alin Vera . [address], [place], [place], [address] , [place]. [phone] Referring Provider: Minerva Clark, [address], [place], [address] . tel:[phone] Office/outpa tient visit,[facility], [facility], [address], [place], [place], [address], [place] tel:[phone] [facility] 400 right knee pain (chief complaint) left hand swelling (chief complaint) Right knee painLeft hand painPrimary osteoarthriti s of right kneeClosed nondisplaced fracture of right patella, unspecified fracture morphology, initial encounterFrac ture of proximal phalanx of digit of left hand 5 Lashonda Palma. [address], [place], [place], [address] , [place]. [phone] Referring Provider: Minerva Clark, [address], [place], [address] . tel:[phone] [facility], [address], [place], [place], [address], [place] tel:[phone] [facility] 400 right knee pain (chief complaint) Primary osteoarthriti s of right knee Dec- 5 Alin Vera . [address], [place], [address] , [place]. tel:[phone] Referring Provider: Chuy Ogden MD H, [address], [place], [address] . tel:[phone] [facility], [address], [place], [place], [address], [place] tel:[phone] [place] [address] right knee pain (chief complaint) Primary osteoarthriti s of right knee 5 Alin Vera . [address], [place], [address] , [place]. tel:[phone] Referring Provider: Chuy Ogden MD H, [address], [place], [address] . tel:[phone] [facility], [address], [place], [address], [place] tel:[phone] [facility] 400 right knee pain (chief complaint) Primary osteoarthriti s of right knee 5 Alin Vera . [address], [place], [place], [address] , [place]. tel:[phone] Referring Provider: Chuy Ogden MD H, [address], [place], [address] . tel:[phone] Office/outpa tient visit,est, mod [facility], [address], [place], [address], [place] tel:[phone] [facility] right knee pain (chief complaint) Degenerative joint disease of knee 5 Alin Vera . [address], [place], [place], [address] , [place]. tel: [phone] Referring Provider: Chuy Ogden MD H, [address], [place], [address] . tel:[phone] Office/outpa tient visit,new, [facility], [address], [place], [place], [address], [place] tel:[phone] [facility] right knee pain (chief complaint) No Information 5 Alin Vera . [address], [place], [place], [address] , [place]. tel: [phone] Referring Provider: Chuy Ogden MD H, [address], [place], [address] . tel:[phone] [facility], [address], [place], [address], [place] tel:[phone] [place] [address] No Information 5 Alin Vera . [address], [place], [address] , . tel: [phone] Family History Family Member Type Diagnosis Age At Onset Father Problem (finding) Mother Problem (finding) Stomach Sister Problem (finding) malignant neop lasm of breast in first degree relative Mother Problem (finding) Payers Payer name Insurance type Covered alliance party ID Authoriza tion(s) MEDICARE MB [id number] AARP SUPPLEMENT CI [id number] Social History Type Description Quantity Date Captured [...] leg ordered Referral Ordered: X-ray exam of knee, 3 views RT knee ordered Referral Ordered: X-ray exam of hand, [...] for the treatment of pain such as cbir-ghj-qjmzfcr medications, acupuncture, cognitive and physical therapy. The risk of taking prescribed opioid medications were discussed including but not limited to addiction, injury, overdose, and . The patient has been provided the approved [facility] educational pamphlet non-opioid alternatives if opioids were [...] for the treatment of pain such as qyap-jfa-pyytasm medications, acupuncture, cognitive and physical therapy. The risk of taking prescribed opioid medications were discussed including but not limited to addiction, injury, overdose, and . The patient has been provided the approved [facility] educational pamphlet non-opioid alternatives if opioids were [...] for the treatment of pain such as twuf-sco-bhgjoqz medications, acupuncture, cognitive and physical therapy. The risk of taking prescribed opioid medications were discussed including but not limited to addiction, injury, overdose, and . The patient has been provided the approved [facility] educational pamphlet non-opioid alternatives if opioids were [...] for the treatment of pain such as qane-aht-vszesty medications, acupuncture, cognitive and physical therapy. The risk of taking prescribed opioid medications were discussed including but not limited to addiction, injury, overdose, and . The patient has been provided the approved [facility] educational pamphlet non-opioid alternatives if opioids were [...] right ankle, unspecified ligament, subsequent encounter Recommend time lock expert use and the splint was adjusted to [...] the office by one of the physicians doctor assistant and placed in the immobilizer. Today's [...] in performing activities of daily living and receiver bulk system. Has tried conservative measures rest, OTC NSAIDs [...]
[2025-03-19 11:43] VITALS: BMI 37.1
--- NOTE | 2025-03-19 11:43 | A.OFFVIS_ITS ---
Vital Signs 3 03/19/25 11:43 Height 5 ft 6 in Weight 230 lb BMI 37.1 Intake Visit Reasons: f/u fu rt toe open wound Intake Note: Ana M is an 84 year old female who presents today for a follow up on her right toe open wound. At her last visit her wound was dressed using Xeroform, 4 x 4 gauze, Britni, and a non-compressive Jd bandage. She was advised to continue with daily dressing changes using Steri-Strips, mupirocin ointment, Xeroform and 4 x 4 gauze and Britni secured with tape. Patient reports her toe has been amputated as of 01/01/25 and the wound has remained the same and she has not seen any improvement since her last visit. Patient denies experiencing any pain at this time. Allergies empagliflozin (From [employer]) Allergy (Verified 03/19/25 11:44) sores HPI HPI f/u fu rt toe open wound: Details: 84-year-old female with past medical history of diabetes mellitus type 2, peripheral artery disease status post angioplasty right lower extremity, on warfarin, returns for 2 week follow up of right foot wound. She is concerned about a new left great toe ulcer. She denies any acute trauma or injuries. History: The patient states that she moved from [place] in December after a right 5th toe amputation approximately 3 weeks ago. She stayed in the hospital for approximately 1 week and then was in a subacute rehab facility for almost 2 weeks. She was given an oral antibiotic after discharge, which she has now completed. She states she has had the right foot ulcer chronically for several years which eventually had become acutely infected and required amputation. Today, the patient denies any pain to her lower extremities. She does endorse numbness her feet. She denies nausea vomiting fever chills shortness of breath or chest pain. She is unsure of her last A1c, however reports it to be typically under 10%. [facility] Medical History Current use of skilled nursing anticoagulation Thrombocytopenia Elevated liver enzymes Amputation of fifth toe, right, traumatic Chronic kidney disease Elevated BP without diagnosis of hypertension Hypertension associated with chronic kidney disease due to type 2 diabetes mellitus Hyperlipidemia Atrial fibrillation Pulmonary hypertension Coronary artery disease Sick sinus syndrome History of tuberculosis Pacemaker Osteomyelitis Lymphedema Sleep apnea (HFpEF) heart failure with preserved ejection fraction Diabetes mellitus type 2 with complications Surgical History History of lung surgery S/P foot surgery Family History Father Stomach cancer Mother No problems noted. Social History Housing: House Alcohol intake: current Alcohol intake frequency: does not drink Patient Tobacco Use Status: Never used Tobacco service: No Current occupational status: retired Cognitive needs: Yes Hearing needs: No Vision needs: Yes (reading glasses) Review of Systems Const All systems reviewed & are unremarkable except as noted in HPI and below Physical Exam Vital Signs: BMI result Body Mass Index 37.1 Extrem Other: *Bilateral Lower Extremity Focused Diabetic Foot Exam Vascular: DP/PT 1/4 right foot, CFT<3s to digits, TG warm to cool, no pedal edema, pedal hair absent Derm: Status post right foot partial 5th ray amputation 2 cm x 0.7 cm x 0.4cm fibrotic wound bed along the central aspect of the 5th metatarsal incision. No drainage erythema or clinical signs of infection. No deep probing or exposed tendon/bone. Left medial distal hallux 0.5 cm x 0.4 cm x 0.1cm, granular wound bed. Nails: Elongated, thickened, dystrophic, discolored toenails x 10 with multiple calluses Discolored bilateral lower extremities with hemosiderin deposit. Dry scaling bilateral feet. Multiple calluses over and in between digits. Neuro: Protective sensation grossly diminished to bilateral lower extremities Msk: Status post right foot partial 5th ray amputation. No pain on palpation. Footwear Assessment: Shoes inspected; appropriate fit, no excessive wear, or foreign objects noted. Office Procedures AMB Debridement/Avulsion Podia Details: Procedure: Sharp excisional debridement Depth: Subcutaneous layer Indication: Right diabetic foot ulcer Anesthesia: N/A Description: The site was prepped using alcohol/cleanser. A #15 Blade and sterile curette were used to perform a sharp excisional wound debridement of the lesion to the level of subcutaneous tissue. The lesion measured 2.0 cm x 0.7 cm at the end of debridement. Dressings: Mupirocin, Xeroform, 4 x 4 gauze, Britni. Tolerance: Patient tolerated procedure well, no immediate complications. 34377-Wdwsagnhccs of skin tissue Procedure code (CPT) selection complete Results Reviewed Results Reviewed: Laboratory Tests 02/02/25 03/05/25 11:58 10:21 Creatinine 1.56 H 1.84 H Assessment & Plan Assessment & Plan (1) Ulcer of right foot due to type 2 diabetes mellitus: Code(s): E11.621 - Type 2 diabetes mellitus with foot ulcer; L97.519 - Non-pressure chronic ulcer of other part of right foot with unspecified severity Category: Medical Plan: * The right foot wound was excisionally debrided using a curette. All wound measurements increased by 0.1 cm. The wound was dressed using Xeroform, 4 x 4 gauze, Britni, and a non-compressive Jd bandage. * Continue daily dressing changes using mupirocin ointment, Xeroform and 4 x 4 gauze and Britni secured with tape. * Discussed that patient may require wound debridement and graft application, pending vascular surgery clearance and possible intervention. * Patient has had minimal progress since the past 7 weeks of treatment. She has known PVD which is pending further evaluation/treatment at this time. We will proceed with further noninvasive treatment options, including use of biologic grafts versus possible wound VAC therapy. * Follow up in 2-3 weeks. * Patient was instructed to present earlier if she has any new worsening signs of infection to her feet. (2) Peripheral artery disease: Code(s): I73.9 - Peripheral vascular disease, unspecified Category: Medical Plan: * Pending CT-angio * Discussed she will require revision prior to surgical intervention pes debridement (3) Xerosis cutis: Code(s): L85.3 - Xerosis cutis Category: Medical Plan: * Continue Amlactin ointment (4) Chronic kidney disease: Code(s): N18.9 - Chronic kidney disease, unspecified Category: Medical Qualifiers: Chronic kidney disease stage: stage 3 (moderate) Chronic kidney disease stage 3 subtype: stage 3b (GFR 30-44) Qualified Code(s): N18.32 - Chronic kidney disease, stage 3b Plan: * Decreased eGFR 32 --> 26 * will discuss with computer programmer chief and PCP (5) Ulcer of left foot due to type 2 diabetes mellitus: Code(s): E11.621 - Type 2 diabetes mellitus with foot ulcer; L97.529 - Non-pressure chronic ulcer of other part of left foot with unspecified severity Category: Medical Plan: * Apply mupirocin ointment, 2 x 2 gauze, and Britni. Coding Level of Care Code Est Pt Level 3 (04763) Diagnoses Ulcer of right foot due to type 2 diabetes mellitus E11.621; L97.519 Peripheral artery disease I73.9 Xerosis cutis L85.3 Stage 3b chronic kidney disease N18.32 Chronic kidney disease stage: stage 3 (moderate) Chronic kidney disease stage 3 subtype: stage 3b (GFR 30-44) Ulcer of left foot due to type 2 diabetes mellitus E11.621; L97.529 CPT Codes Skin Debridement - CPT: 96108-Elvkltqatmu of skin tissue ([id number]) Time Spent (min) 25 Comment Lab review, coordination of care
== END 2025-03-19 12:15 | disposition home or self-care (01) ==
LOC: HO.HPODS 11:31
PROVIDERS: PCP Student in an Organized Health Care Education/Training Program; Visit Provider Student in an Organized Health Care Education/Training Program
DX: E11.621 Type 2 diabetes mellitus with foot ulcer (principal); L97.519 Non-pressure chronic ulcer of other part of right foot with unspecified severity; I73.9 Peripheral vascular disease, unspecified; L85.3 Xerosis cutis; N18.32 Chronic kidney disease, stage 3b; L97.529 Non-pressure chronic ulcer of other part of left foot with unspecified severity
CPT/HCPCS: 11042; 99213

== ENCOUNTER → 2025-03-19 11:30 | Outpatient (BNVA) | payer MEDICARE, SELFPAY | PROVIDERS: PCP Student in an Organized Health Care Education/Training Program; Visit Provider Student in an Organized Health Care Education/Training Program | DX: E11.621 Type 2 diabetes mellitus with foot ulcer (principal); L97.519 Non-pressure chronic ulcer of other part of right foot with unspecified severity; I73.9 Peripheral vascular disease, unspecified; L85.3 Xerosis cutis; N18.32 Chronic kidney disease, stage 3b; L97.529 Non-pressure chronic ulcer of other part of left foot with unspecified severity | CPT/HCPCS: 11042; 99212 ==